=== PATIENT | male | born 1935 | race Caucasian/White ===

== ENCOUNTER 2017-02-18 06:15 | Observation (INO) | payer OTHER ==
[~2017-02-18] VITALS: Ht 175.3 cm; Wt 86.2 kg
[~2017-02-18 06:15] MED LIST: ASPEC81 PO; ATEN-173 PO; BIOF500T PO; CETI10TA84 PO; CHOLTAB3 PO; CLOP1TAB15 PO; COEN100C28 PO; CRS10 PO; FENO48TA9 PO; FLM4 PO; GUAISYP6 PO; HYDR1TAB2 PO; ISR40 PO; MAGN400T6 PO; MULT-506 PO; NTRGSL/4 UT; PRLSR20 PO; SALI1SPR3; TEMA30CA4 PO; ZNTT/150 PO; [UNRECOGNIZED DRUG - CODE]
[2017-02-18] MEDS ORDERED: ASPIRIN 81 MG CHEW PO STA (06:33)
[2017-02-18 06:41] LABS: BASO % 0.2 %; BASO ABS # 0.02 K/uL (0-0.2); COMPLETE YES; EOS % 3.8 %; HEMATOCRIT 47.4 % (42-52); IG% 0.3 %; LYMPH % 15.5 %; LYMPH ABS # 1.44 K/uL (1.2-3.4); MEAN CELL VOLUME 84.5 fL (80-100); MEAN CORPUSCULAR HEMOGLOBIN 30.3 pg (25-34); MEAN CORPUSCULAR HGB CONC 35.9 g/dl (32-36); MEAN PLATELET VOLUME 11.2 fL (7.4-10.4); MONO % 9.4 %; NEUT % 70.8 %; PLATELET COUNT 174 K/uL (130-400); RED BLOOD COUNT 5.61 M/uL (4.7-6.1)
[2017-02-18] MEDS ORDERED: ASPI81TA28 PO (06:42)
[2017-02-18] MEDS ORDERED: AMLO-110 PO (06:42)
--- NOTE | 2017-02-18 06:42 | EMERGENCY ROOM VISIT NOTE ---
History Report prepared by Ani: Mallory Ortega Under the Supervision of: Dr. Roberto Lawrence M.D. First contact with patient: 06:30 Chief Complaint: CARDIAC ASSESSMENT Stated Complaint: HEART PAIN History of Present Illness The patient is a 81 year old male who presents to the Emergency Room with complaints of intermittent left sided chest pain that began four days ago. He currently rates his discomfort as a 5/10 in severity. The patient states that he has a cardiac history, noting multiple MIs, quadruple bypass, angioplasty, and stents. He states that his pain he has been experiencing is similar to the pain he has experienced with angina. The patient states that the pain is nonexertional, noting that he does not get the pain as much when he is up and walking around. He states that he was taken off of his Plavix two years ago, noting that he only takes aspirin in the morning. The patient denies being on any blood pressure medications. He states that he is on Atenolol for his heart rate and denies any history of atrial fibrillation. The patient denies taking any of his medications prior to arrival this morning and denies taking any nitroglycerin today. He denies the pain starting after eating. The patient states that his pain can last up to thirty minutes. He denies the pain radiating into his back, arm, shoulder, or jaw. The patient denies any fever, chills, diaphoresis, cough, congestion, shortness of breath, nausea, or vomiting. Source of History: patient Onset: four days ago Position: chest (left) Symptom Intensity: 5/10 Timing: intermittent Associated Symptoms: No fevers, No chills, No diaphoresis, No cough, No SOB , No nausea, No vomiting, No back pain Review of Systems See HPI for pertinent positives and negatives. A total of ten systems were reviewed and were otherwise negative. Past Medical & Surgical Medical Problems: (1) Benign hypertension (2) Coronary artery disease (3) Kidney disease (4) Myocardial infarction (5) Renal artery stenosis Surgical Problems: (1) S/P quadruple vessel bypass Family History Gallbladder disease Heart disease Hypertension Kidney disease Kidney stones Social History Smoking Status: Former Smoker Alcohol Use: none Drug Use: none Marital Status: Housing Status: lives with family Occupation Status: retired Current/Historical Medications Scheduled Aspirin (Aspirin Ec), 81 MG PO DAILY Atenolol (Tenormin), 50 MG PO Q12 Atorvastatin (Lipitor), 80 MG PO DAILY B-Complex W/Biotin & Folic Aci (Super B-Complex), 1 CAP PO DAILY Magnesium (Magnesium 250 mg), 250 MG PO DAILY Pantoprazole Sodium (Protonix), 40 MG PO DAILY Potassium (Potassium), 99 MG PO BID Ranitidine (Zantac), 150 MG PO Q12 Scheduled PRN Hydrocodone/Acetaminophen 5MG/325MG ([place] 5MG/325MG), 1 TABLET PO Q8 PRN for Pain Nitroglycerin (Nitrostat), 0.4 MG UT UD PRN for Chest Pain Zolpidem Tartrate (Zolpidem Tartrate), 10 MG PO HS PRN for Sleep Allergies Coded Allergies: Prazosin (Verified Adverse Reaction, Intermediate, HYPOTENSION, 11/23/12) Physical Exam Vital Signs Date Time Temp Pulse Resp B/P (MAP) Pulse Ox O2 Delivery O2 Flow Rate FiO2 02/18/17 07:00 51 18 177/95 96 Room Air 02/18/17 06:39 96 Room Air 02/18/17 06:35 96 Room Air 02/18/17 06:31 62 02/18/17 06:20 36.5 53 20 206/97 97 Room Air Physical Exam GENERAL: Awake, alert, well-appearing, in no distress HENT: Normocephalic, atraumatic. Mildly dry mucous membranes. EYES: Normal conjunctiva. Sclera non-icteric. NECK: Supple. No nuchal rigidity. FROM. No JVD. RESPIRATORY: Clear to auscultation. CARDIAC: Regular rate, normal rhythm. Extremities warm and well perfused. Pulses equal. ABDOMEN: Soft, non-distended. No tenderness to palpation. No rebound or guarding. No masses. RECTAL: Deferred. MUSCULOSKELETAL: Chest examination reveals no tenderness. The back is symmetrical on inspection without obvious abnormality. There is no CVA tenderness to palpation. No joint edema. LOWER EXTREMITIES: Calves are equal size bilaterally and non-tender. No edema. No discoloration. NEURO: Normal sensorium. No sensory or motor deficits noted. SKIN: No rash or jaundice noted. Medical Decision & Procedures ER Provider Diagnostic Interpretation: X-ray: Per my interpretation, radiologist review. CHEST ONE VIEW PORTABLE CLINICAL HISTORY: CHEST PAIN pain COMPARISON STUDY: 02/20/2013 FINDINGS: Prior median sternotomy. Moderate stable cardiomegaly. Lungs are clear. Diaphragms smooth. IMPRESSION: Moderate cardiac enlargement. No acute process. The above report was generated using voice recognition software. It may contain grammatical, syntax or spelling errors. Electronically signed by: Trevor Romero M.D. 02/18/2017 6:58 AM Dictated Date/Time: 02/18/2017 6:56 AM Laboratory Results 02/18/17 06:30 Red Blood Count 5.61, Mean Corpuscular Volume 84.5, Mean Corpuscular Hemoglobin 30.3, Mean Corpuscular Hemoglobin Concent 35.9, Mean Platelet Volume 11.2, Neutrophils (%) (Auto) 70.8, Lymphocytes (%) (Auto) 15.5, Monocytes (%) (Auto) 9.4, Eosinophils (%) (Auto) 3.8, Basophils (%) (Auto) 0.2, Neutrophils # (Auto) 6.59, Lymphocytes # (Auto) 1.44, Monocytes # (Auto) 0.87, Eosinophils # (Auto) 0.35, Basophils # (Auto) 0.02 02/18/17 06:30 Test 02/18/17 06:30 White Blood Count 9.30 K/uL (4.8-10.8) Red Blood Count 5.61 M/uL (4.7-6.1) Hemoglobin 17.0 g/dL (14.0-18.0) Hematocrit 47.4 % (42-52) Mean Corpuscular Volume 84.5 fL (80-100) Mean Corpuscular Hemoglobin 30.3 pg (25-34) Mean Corpuscular Hemoglobin Concent 35.9 g/dl (32-36) Platelet Count 174 K/uL (130-400) Mean Platelet Volume 11.2 fL (7.4-10.4) Neutrophils (%) (Auto) 70.8 % Lymphocytes (%) (Auto) 15.5 % Monocytes (%) (Auto) 9.4 % Eosinophils (%) (Auto) 3.8 % Basophils (%) (Auto) 0.2 % Neutrophils # (Auto) 6.59 K/uL (1.4-6.5) Lymphocytes # (Auto) 1.44 K/uL (1.2-3.4) Monocytes # (Auto) 0.87 K/uL (0.11-0.59) Eosinophils # (Auto) 0.35 K/uL (0-0.5) Basophils # (Auto) 0.02 K/uL (0-0.2) RDW Standard Deviation 39.9 fL (36.4-46.3) RDW Coefficient of Variation 13.0 % (11.5-14.5) Immature Granulocyte % (Auto) 0.3 % Immature Granulocyte # (Auto) 0.03 K/uL (0.00-0.02) Anion Gap 7.0 mmol/L (3-11) Est Creatinine Clear Calc Drug Dose 51.4 ml/min Estimated GFR () 61.9 Estimated GFR (Non- 53.4 BUN/Creatinine Ratio 20.0 (10-20) Calcium Level 8.9 mg/dl (8.5-10.1) Total Bilirubin 1.4 mg/dl (0.2-1) Direct Bilirubin 0.2 mg/dl (0-0.2) Aspartate Amino Transf (AST/SGOT) 16 U/L (15-37) Alanine Aminotransferase (ALT/SGPT) 22 U/L (12-78) Alkaline Phosphatase 118 U/L (45-117) Troponin I < 0.015 ng/ml (0-0.045) Total Protein 7.9 gm/dl (6.4-8.2) Albumin 4.0 gm/dl (3.4-5.0) Lipase 353 U/L (73-393) Laboratory results reviewed by me Medications Administered Medications (Trade) Dose Ordered Sig/[place] Route Start Time Stop Time Status Last Admin Dose Admin Aspirin (Aspirin Chew) 324 mg NOW STAT PO 02/18/17 06:33 02/18/17 06:35 DC 02/18/17 06:42 324 MG ECG Indication: chest pain Rate (beats per minute): 61 Rhythm: sinus rhythm Findings: 1st degree AV block, T-wave inversion (V6), no acute ischemic change Comparison ECG Date: 11/24/12 Change: no significant change ED Course 0632: The patient was evaluated in room B12B. A complete history and physical exam was performed. 0633: Ordered Aspirin 324 mg PO. 0740: I reevaluated the patient and he is resting comfortably. I discussed all the exam findings with him and I discussed the treatment plan. He verbalized complete understanding and agreement. He will be evaluated for further treatment. 0745: I discussed the patients case with SHAILESH Flores. He is going to evaluate the patient for further treatment. Medical Decision I reviewed the patient's past medical history, medications, and the nursing notes as described above. The patient's presentation and history were concerning for ACS, unstable angina , pneumonia, bronchitis, costochondritis, gastritis, dissection. The patient is a 81-year-old gentleman with a past medical history of extensive CAD with stenting and bypass presents emergency Department with intermittent chest pain over the past several days at rest with last episode this morning when he woke from sleep per history of present illness. Patient denies any shortness of breath nausea sweating with these episodes however they feel like his prior UT. On arrival the patient is asymptomatic otherwise well-appearing, in no acute distress, afebrile hypertensive but otherwise stable vital signs. EKG unremarkable with a T-wave inversion in V6 that was present on prior. Troponin negative. WBC within normal limits. Chest x-ray negative. This patient's extensive history with his symptoms the patient has a heart score of 6 , moderate risk, and thus will be admitted for further evaluation and likely provocative testing. Medication Reconcilliation Current Medication List: was personally reviewed by me Blood Pressure Screening Patient's blood pressure: Elevated blood pressure Blood pressure disposition: Referred to PCP (rever to hospitalist) Consults Time Called: 0740 Consulting Physician: SHAILESH Flores Returned Call: 0724 I discussed the patients case with SHAILESH Flores. He is going to evaluate the patient for further treatment. Impression Primary Impression: Substernal chest pain Scribe Attestation The scribe's documentation has been prepared under my direction and personally reviewed by me in its entirety. I confirm that the note above accurately reflects all work, treatment, procedures, and medical decision making performed by me. Departure Information Dispostion Being Evaluated By Hospitalist Referrals Bi Meier M.D. (PCP)
[2017-02-18] MEDS ORDERED: ATOR-26 PO (06:43)
[2017-02-18] MEDS ORDERED: PANT40TA PO (06:43)
[2017-02-18] MEDS ORDERED: CETI10TA84 PO (06:45)
[2017-02-18] MEDS ORDERED: B-COTAB18 PO (06:45)
[2017-02-18] MEDS ORDERED: ZNTT/150 PO (06:45)
[2017-02-18] MEDS ORDERED: POTA99TA PO (06:46)
--- NOTE | 2017-02-18 06:59 | DIAGNOSTIC IMAGING REPORT ---
CHEST ONE VIEW PORTABLE CLINICAL HISTORY: CHEST PAIN pain COMPARISON STUDY: 02/20/2013 FINDINGS: Prior median sternotomy. Moderate stable cardiomegaly. Lungs are clear. Diaphragms smooth. IMPRESSION: Moderate cardiac enlargement. No acute process. The above report was generated using voice recognition software. It may contain grammatical, syntax or spelling errors. Electronically signed by: Trevor Romero M.D. 02/18/2017 6:58 AM Dictated Date/Time: 02/18/2017 6:56 AM
[2017-02-18] MEDS ORDERED: ZOLP10TA6 PO (07:02)
[2017-02-18] MEDS ORDERED: B-CO1CAP5 PO (07:02)
[2017-02-18 07:04] LABS: ALT/SGPT 22 U/L (12-78); AST/SGOT 16 U/L (15-37); BLOOD UREA NITROGEN 25 mg/dl (7-18); CALCIUM 8.9 mg/dl (8.5-10.1); CARBON DIOXIDE 27 mmol/L (21-32); CHLORIDE 107 mmol/L (98-107); CREATININE 1.27 mg/dl (0.60-1.40); GLUCOSE 111 mg/dl (70-99); SODIUM 141 mmol/L (136-145)
[2017-02-18] MEDS ORDERED: HYDR-5688 PO (07:04)
[2017-02-18] MEDS ORDERED: MAGN250T3 PO (07:04)
[2017-02-18 07:09] LABS: ALKALINE PHOSPHATASE 118 U/L (45-117)
--- NOTE | 2017-02-18 08:20 | History and Physical ---
History & Physical Date & Time of Service: Feb 18, 2017 at 08:16 Chief Complaint: Heart Pain Primary Care Physician: Jeff Rodas M.D. History of Present Illness Mr. Zayas has had intermittent left chest pain for 4 days. It does not get better or worse with exertion however he does feel somewhat better when sitting or standing up rather than laying back. The pain is not reproducible with movement or pressure. No radiation, nausea, diaphoresis, or sob. There was some relief with nitro which he took only a couple of times over the past four days. He has had a mild cough but no sputum and otherwise has felt well, no sick contacts, no recent travel. He has a past medical history of CAD, PA, CABG x 4, AAA, renal artery stenosis, CKD III, renal artery bypass, HLD, HTN, multiple orthopedic surgeries, cholecystectomy. Last cardiac catheterization was about 10 years ago, last stress test about five years ago. Past Medical/Surgical History Medical Problems: (1) Benign hypertension Status: Chronic (2) Coronary artery disease Status: Chronic (3) Kidney disease Status: Chronic (4) Myocardial infarction Status: Resolved (5) Renal artery stenosis Status: Chronic Surgical Problems: (1) S/P quadruple vessel bypass Status: Resolved Family History Gallbladder disease Heart disease Hypertension Kidney disease Kidney stones Social History Smoking Status: Former Smoker (remote, quit 30 years ago) Drug Use: none Marital Status: Housing status: lives with family Occupational Status: retired Immunizations History of Influenza Vaccine: N/A History of Tetanus Vaccine?: Unknown History of Pneumococcal: Yes History of Hepatitis B Vaccine: Unknown Multi-Drug Resistant Organisms History of MDRO: No Allergies Coded Allergies: Prazosin (Verified Adverse Reaction, Intermediate, HYPOTENSION, 11/23/12) Home Medications Scheduled Aspirin (Aspirin Ec), 81 MG PO DAILY Atenolol (Tenormin), 50 MG PO Q12 Atorvastatin (Lipitor), 80 MG PO DAILY B-Complex W/Biotin & Folic Aci (Super B-Complex), 1 CAP PO DAILY Lisinopril (Lisinopril), 5 MG PO DAILY Magnesium (Magnesium 250 mg), 250 MG PO DAILY Pantoprazole Sodium (Protonix), 40 MG PO DAILY Potassium (Potassium), 99 MG PO BID Ranitidine (Zantac), 150 MG PO Q12 Scheduled PRN Hydrocodone/Acetaminophen 5MG/325MG ([place] 5MG/325MG), 1 TABLET PO Q8 PRN for Pain Nitroglycerin (Nitrostat), 0.4 MG UT UD PRN for Chest Pain Zolpidem Tartrate (Zolpidem Tartrate), 10 MG PO HS PRN for Sleep Review of Systems Constitutional: No fever, No chills Respiratory: + cough, No sputum, No shortness of breath Cardiovascular: No chest pain (chest pain resolved), No palpitations Abdomen: No pain, No nausea, No vomiting Musculoskeletal: No joint pain Physical Exam Vital Signs Date Time Temp Pulse Resp B/P (MAP) Pulse Ox O2 Delivery O2 Flow Rate FiO2 02/18/17 07:00 51 18 177/95 96 Room Air 02/18/17 06:39 96 Room Air 02/18/17 06:35 96 Room Air 02/18/17 06:31 62 02/18/17 06:20 36.5 53 20 206/97 97 Room Air General Appearance: WD/WN, no apparent distress Respiratory/Chest: lungs clear, normal breath sounds, no respiratory distress, no accessory muscle use, + pertinent finding (mild chest tenderness left chest) Cardiovascular: regular rate, rhythm, no edema, no gallop, no murmur Abdomen/GI: normal bowel sounds, non tender, soft Back: normal inspection Extremities/Musculoskelatal: no pedal edema Neurologic/Psych: alert, normal mood/affect, oriented x 3 Skin: normal color, warm/dry Diagnostics Laboratory Results Results Past 24 Hours Test 02/18/17 06:30 Range/Units White Blood Count 9.30 4.8-10.8 K/uL Red Blood Count 5.61 4.7-6.1 M/uL Hemoglobin 17.0 14.0-18.0 g/dL Hematocrit 47.4 42-52 % Mean Corpuscular Volume 84.5 80-100 fL Mean Corpuscular Hemoglobin 30.3 25-34 pg Mean Corpuscular Hemoglobin Concent 35.9 32-36 g/dl Platelet Count 174 130-400 K/uL Mean Platelet Volume 11.2 7.4-10.4 fL Neutrophils (%) (Auto) 70.8 % Lymphocytes (%) (Auto) 15.5 % Monocytes (%) (Auto) 9.4 % Eosinophils (%) (Auto) 3.8 % Basophils (%) (Auto) 0.2 % Neutrophils # (Auto) 6.59 1.4-6.5 K/uL Lymphocytes # (Auto) 1.44 1.2-3.4 K/uL Monocytes # (Auto) 0.87 0.11-0.59 K/uL Eosinophils # (Auto) 0.35 0-0.5 K/uL Basophils # (Auto) 0.02 0-0.2 K/uL RDW Standard Deviation 39.9 36.4-46.3 fL RDW Coefficient of Variation 13.0 11.5-14.5 % Immature Granulocyte % (Auto) 0.3 % Immature Granulocyte # (Auto) 0.03 0.00-0.02 K/uL Sodium Level 141 136-145 mmol/L Potassium Level 4.0 3.5-5.1 mmol/L Chloride Level 107 98-107 mmol/L Carbon Dioxide Level 27 21-32 mmol/L Anion Gap 7.0 3-11 mmol/L Blood Urea Nitrogen 25 7-18 mg/dl Creatinine 1.27 0.60-1.40 mg/dl Est Creatinine Clear Calc Drug Dose 51.4 ml/min Estimated GFR () 61.9 Estimated GFR (Non- 53.4 BUN/Creatinine Ratio 20.0 10-20 Random Glucose 111 70-99 mg/dl Calcium Level 8.9 8.5-10.1 mg/dl Total Bilirubin 1.4 0.2-1 mg/dl Direct Bilirubin 0.2 0-0.2 mg/dl Aspartate Amino Transf (AST/SGOT) 16 15-37 U/L Alanine Aminotransferase (ALT/SGPT) 22 12-78 U/L Alkaline Phosphatase 118 45-117 U/L Troponin I < 0.015 0-0.045 ng/ml Total Protein 7.9 6.4-8.2 gm/dl Albumin 4.0 3.4-5.0 gm/dl Lipase 353 73-393 U/L CXR normal EKG T wave abnormality, consider lateral ischemia Abnormal ECG When compared with ECG of 24-NOV-2012 06:22, No significant change was found Impression Assessment and Plan Mr. Zayas is a 81 year old man here for atypical chest pain. He has had intermittent left chest pain for 4 days. It does not get better or worse with exertion however he does feel somewhat better when sitting or standing up rather than laying back. The pain is not reproducible with movement or pressure. No radiation, nausea, diaphoresis, or sob. There was some relief with nitro which he took only a couple of times over the past four days. He has had a mild cough but no sputum and otherwise has felt well, no sick contacts, no recent travel. He has a past medical history of CAD, PA, CABG x 4, AAA, renal artery stenosis, CKD III, renal artery bypass, HLD, HTN, GERD, multiple orthopedic surgeries, cholecystectomy. Last cardiac catheterization was about 10 years ago, last stress test about five years ago. Atypical chest pain - admit for observation to telemetry - serial cardiac enzymes, EKG with chest pain and in the morning - NPO for dobutamine stress Echo CAD - continue ASA - Continue atenolol HTN - continue atenolol - prn IV hydralazine HLD - continue atorvastatin CKDII - avoid nephrotoxic meds when possible GERD - continue ranitidine Resuscitation status - no intubation DVT prophylaxis - heparin ALTERATION TAILOR APPRENTICE Physician Supervision Note: I interviewed and examined the patient. Discussed with Irena Mercado NP and agree with findings and plan as documented in the note. Any exceptions or clarifications are listed here: None Patient presents with sharp chest pain is some exertional dyspnea it is not dull does not radiate to his neck no nausea vomiting his initial troponins unremarkable and EKG was also with only chronic changes he follows Dr. Rodas Vital signs are stable cardiac exam is regular lungs are clear no wheezes or crackles legs without edema peripheral pulses are intact Patient be observed serial troponins be undertaken to be having stress testing for cardio vascular risk stratification if negative the patient will be discharged home with follow-up with Dr. Rodas Documented By: Dylan Pastrana Level of Care Telemetry Advanced Directives Existing Advance Directive: No Existing Power of Sales Service Coordinator: No Existing Health Care Proxy: No Resuscitation Status FULL NO MECH VENTILATION VTE Prophylaxis VTE Risk Assessment Done? Y/N: Yes Given or contraindicated: Unfractionated heparin SQ Social Service Consult None Apply
[2017-02-18] MEDS ORDERED: ONDANSETRON INJ 2 MG/ML 2 ML VIAL IV PRN (08:45)
[2017-02-18] MEDS ORDERED: MoRPHine SULFATE 2 MG/ML CARP IV PRN (08:45)
[2017-02-18] MEDS ORDERED: ACETAMINOPHEN 325 MG TAB PO PRN (08:45)
[2017-02-18] MEDS ORDERED: INFLUENZA VIRUS QUAD VACCINE 0.5 ML SYR IM. ONE (08:45)
[2017-02-18] MEDS ORDERED: MAGNESIUM HYDROXIDE SUSP 30 ML UDC PO PRN (08:45)
[2017-02-18] MEDS ORDERED: NITROGLYCERIN 0.4 MG SL PER TAB CHARGE SL PRN (08:45)
[2017-02-18] MEDS ORDERED: ALUMINUM/MAGNESIUM/SIMETH (MAALOX MAX) 30 ML UDC PO PRN (08:45)
[2017-02-18] MEDS ORDERED: NON-FORMULARY MEDICATION (Potassium 99 MG) PO SCH (09:00)
[2017-02-18] MEDS ORDERED: NITROGLYCERIN 0.4 MG SL PER TAB CHARGE UT PRN (09:00)
[2017-02-18] MEDS ORDERED: ASPIRIN 81 MG ECTAB PO SCH ×2 (09:00)
[2017-02-18] MEDS ORDERED: HYDROCODONE/ACETAMOPHEN 5/325MG TAB PO PRN (09:00)
[2017-02-18] MEDS ORDERED: ZOLPIDEM TARTRATE 10 MG TAB PO PRN (09:00)
[2017-02-18 09:11] LABS: PROTHROMBIN TIME (PATIENT) 10.8 SECONDS (9.0-12.0)
[2017-02-18] MEDS ORDERED: HydrALAZINE HCL 20 MG/ML VIAL IV. PRN (09:15)
[2017-02-18] MEDS ORDERED: IV FLUIDS COMPLETED PRN (09:30)
[2017-02-18 11:24] VITALS: BP 184/90; PULSE 54; TEMP 36.6; O2SAT 95
[2017-02-18 11:32] VITALS: BP 184/90; PULSE 54; TEMP 36.7; O2SAT 95; Ht 175.3 cm; Wt 86.2 kg
[2017-02-18] MEDS ORDERED: INFLUENZA ADMINISTRATION CHARGE ONE ×3 (12:30→14:45)
[2017-02-18] MEDS ORDERED: PANTOprazole SOD 40 MG TAB PO SCH (13:00)
[2017-02-18] MEDS ORDERED: RANITIDINE HCL 150 MG TAB PO SCH (13:00)
[2017-02-18] MEDS ORDERED: ATORVASTATIN 40 MG TAB PO SCH (13:00)
[2017-02-18 13:38] VITALS: BP 205/91; O2SAT 96
[2017-02-18 14:27] VITALS: BP 165/84; PULSE 55; TEMP 36.9; O2SAT 96
[2017-02-18] MEDS ORDERED: INFLUENZA VACCINE HIGH DOSE 65+ 0.5 ML SYR IM. ONE ×2 (14:45)
[2017-02-18 14:53] LABS: CKMB/CK RATIO 1.4 (0-3.0)
[2017-02-18] MEDS ORDERED: METOPROLOL TARTRATE 1 MG/ML VIAL ONE (14:58)
[2017-02-18] MEDS ORDERED: ATROPINE SULFATE 0.1 MG/ML 5ML SYR ONE (14:58)
[2017-02-18] MEDS ORDERED: DOBUTamine 500MG / 250ML D5W ONE (14:59)
[2017-02-18] MEDS ORDERED: PERFLUTREN LIPID MICROSPHERE (DEFINITY) IV ONE (15:48)
[2017-02-18 16:00] VITALS: O2SAT 96
[2017-02-18] MEDS ORDERED: LSN5 PO (16:17)
--- NOTE | 2017-02-18 16:27 | Discharge Instructions ---
Discharge Instructions Date of Service Feb 18, 2017. Admission Reason for Admission: Atypical Chest Pain Discharge Discharge Diagnosis / Problem: atypical chest pain, htn Discharge Goals Goal(s): Decrease discomfort, Improve disease control Activity Recommendations Activity Limitations: resume your previous activity . Instructions / Follow-Up Instructions / Follow-Up Please see cardiology ThursdayFebruary 25 at 2:00 You have a new prescription for lisinopril which is an LENARD inhibitor. Please check your blood pressure daily after sitting quietly for 15 minutes and record the reading in a log for your physician. This is a low dose of this medication. Hopefully if you titrate up slowly you can avoid the hypotension issues you have had in the past. Current Hospital Diet Patient's current hospital diet: Discharge Diet Recommended Diet: AHA Diet (Heart Healthy) Procedures Procedures Performed: Dobutamine stress echo Pending Studies Studies pending at discharge: no Medical Emergencies . Who to Call and When: Medical Emergencies: If at any time you feel your situation is an emergency, please call 911 immediately. . Non-Emergent Contact Non-Emergency issues call your: Primary Care Provider, Screen Vent Binder Call Non-Emergent contact if: your pain is unusual for you, you have any medication questions . Past History Medical & Surgical History: (1) Atypical chest pain (2) Essential (primary) hypertension . "Provider Documentation" section prepared by Irena Mercado. . VTE Core Measure Inpt VTE Proph given/why not?: Unfractionated heparin SQ
[2017-02-18 16:48] VITALS: BP 165/84; PULSE 55; TEMP 36.9; O2SAT 96
--- NOTE | 2017-02-18 16:49 | Discharge Summary ---
Discharge Summary Date of Service Feb 18, 2017. (Irena Mercado CRNP) Discharge Summary Admission Date: Feb 18, 2017 at 08:46 Discharge Date: Feb 18, 2017 Principal Diagnosis: atypical chest pain Problems/Secondary Diagnoses: CAD, SD, CABG x 4, AAA, renal artery stenosis, CKD III, renal artery bypass, HLD , HTN, GERD, multiple orthopedic surgeries, cholecystectomy. Immunizations: Have You Had Influenza Vaccine: N/A History of Tetanus Vaccine?: Unknown History of Pneumococcal: Yes History of Hepatitis B Vaccine: Unknown Procedures: Dobutamine stress test CXR IMPRESSION: Moderate cardiac enlargement. No acute process. Consultations: Dr. Rodas (Irena Mercado CRNP) Medication Reconciliation New Medications: Lisinopril (Lisinopril) 5 Mg Tab 5 MG PO DAILY for 30 Days, #30 DOSE Continued Medications: Aspirin (Aspirin Ec) 81 Mg Tab 81 MG PO DAILY Atenolol (Tenormin) 25 Mg Tab 50 MG PO Q12 Atorvastatin (Lipitor) 80 Mg Tab 80 MG PO DAILY, TAB B-Complex W/Biotin & Folic Aci (Super B-Complex) 1 Cap Cap 1 CAP PO DAILY Hydrocodone/Acetaminophen 5MG/325MG ([place] 5MG/325MG) Tab 1 TABLET PO Q8 PRN for Pain, TAB PRN PAIN Magnesium (Magnesium 250 mg) 1 Tab Tab 250 MG PO DAILY Nitroglycerin (Nitrostat) 0.4 Mg Tab 0.4 MG UT UD PRN for Chest Pain Pantoprazole Sodium (Protonix) 40 Mg Tab 40 MG PO DAILY, TAB Potassium (Potassium) 99 Mg Tab 99 MG PO BID Ranitidine (Zantac) 150 Mg Tab 150 MG PO Q12, TAB Zolpidem Tartrate (Zolpidem Tartrate) 10 Mg Tab 10 MG PO HS PRN for Sleep for 30 Days, #30 TAB Discharge Exam Review of Systems: Cardiovascular: No chest pain, No palpitations Abdomen: No pain, No nausea, No vomiting, No diarrhea Genitourinary - Female: No dysuria (Irena Mercado CRNP) Hospital Course Mr. Zayas is a 81 year old man here for atypical chest pain. He has had intermittent left chest pain for 4 days. It does not get better or worse with exertion however he does feel somewhat better when sitting or standing up rather than laying back. The pain is not reproducible with movement or pressure. No radiation, nausea, diaphoresis, or sob. There was some relief with nitro which he took only a couple of times over the past four days. He has had a mild cough but no sputum and otherwise has felt well, no sick contacts, no recent travel. He has a past medical history of CAD, SD, CABG x 4, AAA, renal artery stenosis, CKD III, renal artery bypass, HLD, HTN, GERD, multiple orthopedic surgeries, cholecystectomy. Last cardiac catheterization was about 10 years ago, last stress test about five years ago. Atypical chest pain - admit for observation to telemetry - serial cardiac enzymes, EKG with chest pain and in the morning - Trops negative x2 - dobutamine stress Echo - per Dr. Rodas patient's stress test was normal CAD - continue ASA - Continue atenolol HTN - continue atenolol - prn IV hydralazine - start lisinopril 5 mg daily. Patient will probably need to titrate up slowly given history of orthostatic hypotension with antihypertensives. HLD - continue atorvastatin CKDII - avoid nephrotoxic meds when possible GERD - continue ranitidine Resuscitation status - no intubation DVT prophylaxis - heparin Total Time Spent: Less than 30 minutes This includes examination of the patient, discharge planning, medication reconciliation, and communication with other providers. (Irena Mercado CRNP) PROFESSOR OF MEDICINE Physician Supervision Note: I interviewed and examined the patient. Discussed with Irena Mercado PROFESSOR OF MEDICINE and agree with findings and plan as documented in the note. Any exceptions or clarifications are listed here: None Patient brought in with sharp atypical chest pain and some shortness of breath nuclear stress test was unremarkable the patient will return to home with outpatient follow-up with cardiology, the patient was seen and examined on intake and discharge he was relieved that his pain was not cardiac no medication changes were recommended exception of his attending an LENARD inhibitor of lisinopril for blood pressure control as the patient's blood pressure was noted to be high by his attending hand stripper. His physical exam continues to show regular heart rate clear lungs Patient voiced understanding of the medication changes Documented By: Dylan Pastrana (Dylan Pastrana M.D.) Discharge Instructions Please refer to the electronic Patient Visit Report (Discharge Instructions) for additional information. (Irena Mercado CRNP) Follow-Up Cardiology February 25 (Irena Mercado CRNP) Additional Copies To Jeff Rodas M.D.
--- NOTE | 2017-02-18 17:05 | DOBUTAMINE ECHO ---
*NOTICE TO RECEIVING [employer] This information is strictly Confidential and protected under [place] law. [place] law prohibits you from making any further disclosure of this information unless further disclosure is expressly permitted by the written consent of the person to whom it pertains or is authorized by law. A general authorization for the release of medical or other information is not sufficient for this purpose. Hospital accepts no responsibility if the information is made available to any other person, INCLUDING THE PATIENT. Interpretation Summary * Name: JULISSA ORELLANA Study Date: 02/18/2017 02:34 PM BP: 158/74 mmHg * Patient Location: [facility]\S\N289\S\2 HR: 59 * : 1935 (M/d/yyy) Gender: Male Height: 69 in * Age: 81 yrs Ethnicity: [place] Weight: 190 lb * Ordering Physician: Irena Mercado * Referring Physician: Jeff Rodas * Performed By: Chela Restrepo RDCS * * Reason For Study: CHEST PAIN * BSA: 2.0 m2 * Normal overall resting left ventricular systolic function. Localized apical lateral akinesis. Lateral hypokinesis. * Pharmacologic stress echocardiogram to 91% maximum predicted heart rate negative for chest pain. Normal ECG response. Normal echocardiographic response. No echocardiographic evidence of dobutamine stress-induced myocardial ischemia. * Moderate left atrial dilatation. * Moderate concentric left ventricular hypertrophy. * No significant valvular abnormalities noted. * -- Conclusions -- * Aortic valve sclerosis moderate, without significant aortic valvular stenosis. Procedure Details * DOBUTAMINE ECHO, CPT#[id number] * ECHO DOPPLER, CPT #[id number] * ECHO COLOR FLOW, CPT #[id number] * A contrast injection of Definity was performed to improve assessment of LV function. * Contrast was injected into an intravenous site in the left arm. * One vial of Definity ultrasound contrast was diluted in normal saline to a total volume of 10 ml. A total of '5' ml of solution was administered during imaging. * Lot # [id number] of Definity utilized for procedure. * Expiration date 02/11. * The attending nurse who injected the contrast agent was DOUG CAMARILLO RN. Left Ventricle * The left ventricle is normal in size. * There is moderate concentric left ventricular hypertrophy. * Ejection Fraction = 60-65%. * Left ventricular systolic function is normal. * The left ventricular ejection fraction increases normally with stress. The left ventricular end-systolic cavity size reduces post-stress (normal response). The left ventricular wall motion with stress is normal. * Anterolateral hypokinesis and apical lateral akinesis at rest. Following pharmacologic stress improvement in LV wall motion all segments except for the apical lateral segment which remained akinetic. This was a localized segment of the left ventricle. Right Ventricle * The right ventricle is normal in size and function. Atria * The left atrium is moderately dilated. * Right atrial size is normal. Mitral Valve * The mitral valve is normal. * There is no mitral valve stenosis. * There is trace mitral regurgitation. Tricuspid Valve * The tricuspid valve is not well visualized, but is grossly normal. * There is no tricuspid stenosis. * Significant tricuspid regurgitation is absent. Aortic Valve * The aortic valve is trileaflet. * Aortic valve sclerosis moderate, without significant aortic valvular stenosis. * No aortic regurgitation is present. Pulmonic Valve * The pulmonic valve is not well seen, but is grossly normal. * Pulmonic stenosis is absent. * There is no pulmonic valvular regurgitation. Great Vessels * The aortic root is normal size. Pericardium * There is no pericardial effusion. Stress Parameters * The baseline ECG displays normal sinus rhythm. * Non specific T wave changes in the inferolateral leads ( flat to very shallow inverted T waves). * Stress ECG: No ST changes. No arrhythmias. * The T waves became upright in the inferolateral leads. * Arrhythmia induced during stress: occasional PVC's. * The stress portion of this study was personally supervised by the undersigned interpreting physician. * Rest heart rate was '59' BPM. * Rest blood pressure was '158/74' * Maximum heart rate achieved was 129 bpm. * Maximum heart rate was 91 % of maximum age-predicted heart rate. * Maximum blood pressure was '180/57' * Maximum Dobutamine infusion rate was '50' mcg/kg/min. * Dobutamine infusion was terminated due to achieving target heart rate * No complaints of chest pain or upper back discomfort or arm discomfort with pharmacologic stress. He did complain of low back discomfort which he attributes to his chronic lumbar spinal issues. MMode 2D Measurements and Calculations IVSd 1.5 cm IVSs 2.3 cm LVIDd 4.7 cm LVIDs 3.1 cm LVPWd 1.5 cm LVPWs 2.4 cm IVS/LVPW 1.0 FS 33.2 % EDV(Teich) 100.9 ml ESV(Teich) 38.4 ml EF(Teich) 61.9 % EDV(cubed) 101.9 ml ESV(cubed) 30.3 ml EF(cubed) 70.3 % % IVS thick 50.5 % % LVPW thick 59.0 % LV mass(C)d 291.0 grams LV mass(C)dI 144.0 grams/m\S\2 LV mass(C)s 363.6 grams LV mass(C)sI 179.9 grams/m\S\2 CO(Teich) 3.8 l/min CI(Teich) 1.9 l/min/m\S\2 SV(Teich) 62.4 ml SI(Teich) 30.9 ml/m\S\2 CO(cubed) 4.4 l/min CI(cubed) 2.2 l/min/m\S\2 SV(cubed) 71.6 ml SI(cubed) 35.4 ml/m\S\2 Ao root diam 3.4 cm Ao root area 8.9 cm\S\2 ACS 1.4 cm LA dimension 4.8 cm asc Aorta Diam 2.9 cm LA/Ao 1.4 LVOT diam 2.1 cm LVOT area 3.4 cm\S\2 LVAd ap4 31.4 cm\S\2 LVLd ap4 8.0 cm EDV(MOD-sp4) 102.0 ml LVAs ap4 16.9 cm\S\2 LVLs ap4 6.5 cm ESV(MOD-sp4) 36.3 ml EF(MOD-sp4) 64.4 % LVAd ap2 35.6 cm\S\2 LVLd ap2 8.8 cm EDV(MOD-sp2) 120.0 ml LVAs ap2 18.9 cm\S\2 LVLs ap2 6.6 cm ESV(MOD-sp2) 45.3 ml EF(MOD-sp2) 62.3 % CO(MOD-sp4) 4.0 l/min CI(MOD-sp4) 2.0 l/min/m\S\2 SV(MOD-sp4) 65.7 ml SI(MOD-sp4) 32.5 ml/m\S\2 CO(MOD-sp2) 4.6 l/min CI(MOD-sp2) 2.3 l/min/m\S\2 SV(MOD-sp2) 74.7 ml SI(MOD-sp2) 37.0 ml/m\S\2 Doppler Measurements and Calculations MV E max ana luisa 121.4 cm/sec MV dec time 0.19 sec Ao V2 max 124.1 cm/sec Ao max PG 6.2 mmHg Ao max PG (full) 3.4 mmHg ANTWON(V,A) 2.3 cm\S\2 ANTWON(V,D) 2.3 cm\S\2 LV V1 max PG 2.8 mmHg LV V1 max 83.4 cm/sec MR max ana luisa 407.9 cm/sec MR max PG 66.7 mmHg PA V2 max 79.5 cm/sec PA max PG 2.5 mmHg
[2017-02-18] MEDS ORDERED: HEPARIN SOD 5000 UNIT/0.5 ML CARP SQ SCH (21:00)
[2017-02-19] MEDS ORDERED: MAGNESIUM OXIDE 400 MG TAB PO SCH (09:00)
[2017-02-19] MEDS ORDERED: VITAMIN B COMPLEX TAB PO SCH (09:00)
== END 2017-02-18 17:17 | disposition home or self-care (01) ==
LOC: C.EDB 06:16 → C.MED 08:46 → ENRESERV 10:48
PROVIDERS: ADMIT Internal Medicine; ATTEND Internal Medicine
DX: R07.89 Other chest pain (principal); I25.2 Old myocardial infarction; Z95.5 Presence of coronary angioplasty implant and graft; Z79.82 Long term (current) use of aspirin; I25.10 Atherosclerotic heart disease of native coronary artery without angina pectoris; N18.2 Chronic kidney disease, stage 2 (mild); Z82.49 Family history of ischemic heart disease and other diseases of the circulatory system; Z84.1 Family history of disorders of kidney and ureter; Z87.891 Personal history of nicotine dependence; I51.7 Cardiomegaly; I12.9 Hypertensive chronic kidney disease with stage 1 through stage 4 chronic kidney disease, or unspecified chronic kidney disease; Z90.49 Acquired absence of other specified parts of digestive tract; K21.9 Gastro-esophageal reflux disease without esophagitis

== ENCOUNTER 2017-03-20 14:51 | Emergency (ER) | payer OTHER ==
[~2017-03-20] VITALS: Ht 175.3 cm; Wt 86.7 kg
[~2017-03-20 14:51] MED LIST changes: -ASPEC81 PO; +ASPI81TA28 PO; +ATOR-26 PO; +B-CO1CAP5 PO; -BIOF500T PO; -CETI10TA84 PO; -CHOLTAB3 PO; -CLOP1TAB15 PO; -COEN100C28 PO; -CRS10 PO; -FENO48TA9 PO; -FLM4 PO; -GUAISYP6 PO; +HYDR-5688 PO; -HYDR1TAB2 PO; -ISR40 PO; +LSN5 PO; +MAGN250T3 PO; -MAGN400T6 PO; -MULT-506 PO; +PANT40TA PO; +POTA99TA PO; -PRLSR20 PO; -SALI1SPR3; -TEMA30CA4 PO; +ZOLP10TA6 PO; -[UNRECOGNIZED DRUG - CODE]
[2017-03-20 14:53] VITALS: TEMP 36.7; Ht 175.3 cm; Wt 86.7 kg
[2017-03-20] MEDS ORDERED: LACTATED RINGER'S 1000ML 1,000 ML IV STA (16:06)
--- NOTE | 2017-03-20 16:22 | EMERGENCY ROOM VISIT NOTE ---
History Report prepared by Ani: Gloria Malcolm Under the Supervision of: Dr. Roberto Lawrence M.D. First contact with patient: 16:03 Chief Complaint: ABDOMINAL PAIN Stated Complaint: STOMACH PAIN Nursing Triage Summary: abdominal pain that started thursday night. denies n/v/d. History of Present Illness The patient is a 82 year old male who presents to the Emergency Room with complaints of constant lower abdominal pain beginning 2 days ago. The patient states that one week ago he was seen here and evaluated for chest pain. He reports that he was having upper abdominal pain and chest pain but for the last 2 days he has been having only lower abdominal pain and lower back pain. He notes that laying down worsens his pain significantly and it is slightly relieved after about 30 minutes of standing. The patient states that he had a bowel movement today that made his pain slightly better. He complains of a slight cough. He denies any nausea, vomiting, diarrhea, constipation, congestion , fever, chills, chest pain, and urinary symptoms. The patient reports a history of heart attacks, stent, and GERD. He notes that he gets an angiogram yearly for a previous history of AAA. He rates his pain as a 2/10 in severity currently but an 8/10 when it is peaking. Source of History: patient Onset: 2 days ago Position: abdomen (lower) Symptom Intensity: 2-8/10 Timing: constant Associated Symptoms: + cough, + back pain, No fevers, No chills, No chest pain, No nausea, No vomiting, No diarrhea, No urinary symptoms Note: He denies any constipation and congestion. Review of Systems See HPI for pertinent positives and negatives. A total of ten systems were reviewed and were otherwise negative. Past Medical & Surgical Medical Problems: (1) Atypical chest pain (2) Benign hypertension (3) Coronary artery disease (4) Essential (primary) hypertension (5) Kidney disease (6) Myocardial infarction (7) Renal artery stenosis Surgical Problems: (1) S/P quadruple vessel bypass Family History Gallbladder disease Heart disease Hypertension Kidney disease Kidney stones Social History Smoking Status: Never Smoker Alcohol Use: none Drug Use: none Marital Status: Housing Status: lives with family Occupation Status: retired Current/Historical Medications Scheduled Aspirin (Aspirin Ec), 81 MG PO DAILY Atenolol (Tenormin), 50 MG PO Q12 Atorvastatin (Lipitor), 80 MG PO DAILY B-Complex W/Biotin & Folic Aci (Super B-Complex), 1 CAP PO DAILY Lisinopril (Lisinopril), 5 MG PO DAILY Magnesium (Magnesium 250 mg), 250 MG PO DAILY Pantoprazole Sodium (Protonix), 40 MG PO DAILY Potassium (Potassium), 99 MG PO BID Ranitidine (Zantac), 150 MG PO Q12 Scheduled PRN Nitroglycerin (Nitrostat), 0.4 MG UT UD PRN for Chest Pain Zolpidem Tartrate (Zolpidem Tartrate), 10 MG PO HS PRN for Sleep Allergies Coded Allergies: Prazosin (Verified Adverse Reaction, Intermediate, HYPOTENSION, 03/20/17) Physical Exam Vital Signs Date Time Temp Pulse Resp B/P (MAP) Pulse Ox O2 Delivery O2 Flow Rate FiO2 03/20/17 22:14 65 18 204/104 95 03/20/17 20:55 58 18 200/110 97 Room Air 03/20/17 19:44 57 18 195/91 97 Room Air 03/20/17 18:28 57 18 211/113 96 Room Air 03/20/17 16:40 55 03/20/17 16:36 54 18 220/110 96 Room Air 03/20/17 14:53 36.7 56 18 195/96 96 Room Air Physical Exam GENERAL: Awake, alert, well-appearing, in no distress HENT: Normocephalic, atraumatic. Dry mucous membranes. EYES: Normal conjunctiva. Sclera non-icteric. NECK: Supple. No nuchal rigidity. FROM. No JVD. RESPIRATORY: Clear to auscultation. CARDIAC: Regular rate, normal rhythm. Extremities warm and well perfused. Pulses equal. ABDOMEN: Soft, non-distended. Mild periumbilical tenderness, RLQ and LLQ tenderness, no peritoneal signs. No rebound or guarding. No masses. RECTAL: Deferred. MUSCULOSKELETAL: Chest examination reveals no tenderness. The back is symmetrical on inspection without obvious abnormality. There is no CVA tenderness to palpation. No joint edema. LOWER EXTREMITIES: Calves are equal size bilaterally and non-tender. No edema. No discoloration. NEURO: Normal sensorium. No sensory or motor deficits noted. SKIN: No rash or jaundice noted. Medical Decision & Procedures ER Provider Diagnostic Interpretation: Radiology results as stated below per my review and radiologist interpretation: CHEST ONE VIEW PORTABLE FINDINGS: The heart remains mildly enlarged. There are poststernotomy changes. No pleural effusions. No pneumothorax. A few linear densities at the left lung base favor scarring. This remains unchanged. No new focal lung consolidations. No evidence for pulmonary edema. IMPRESSION: No significant change compared to the prior study. No acute process. Electronically signed by: Trace Boyd M.D. 03/20/2017 4:40 PM Dictated Date/Time: 03/20/2017 4:[address] ANGIO ABD/PELVIS WITH CONTRAST FINDINGS: Visualized portions lung bases reveal mild basilar interstitial thickening. Emphysema is suspected. The heart is enlarged. No space-occupying hepatic masses are visualized. The hepatic and portal veins appear patent. The gallbladder is surgically absent. No splenic masses are visualized. No pancreatic masses are visualized. No adrenal masses are visualized. There is 11 mm right renal cyst. No solid renal masses are visualized. There is no hydronephrosis. Mild bilateral perinephric edema, unchanged. There are no transition zones indicate bowel obstruction. The appendix appears normal. There is no evidence of acute diverticulitis. There is mild prostamegaly. There is no free fluid. There is no ascites. There is no evidence of hemodynamically significant celiac artery stenosis. There is mild nonhemodynamically significant stenosis involving the superior mesenteric artery origin. There is been reimplantation of the left renal artery. There is approximately 50% stenosis at the proximal left renal artery. This remains unchanged. There is a 50% stenosis of the proximal right renal artery. The patient is status post aortobiiliac grafting. 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 This remains unchanged. There is no evidence of contrast extravasation. There is a 40% diameter narrowing at the level of each distal graft, common iliac artery anastomosis. There is no significantly significant external or common iliac artery stenosis. There is a 40% diameter narrowing of the left common femoral artery. There are diffuse atheromatous changes within the aorta. There are postsurgical changes involving the right iliac bone.. IMPRESSION: 1. Overall, no significant change compared to the prior study. No bowel wall thickening or obstruction. 2. 50% stenosis of the proximal right renal artery 3. Postsurgical changes of a left renal artery reimplantation. Stable 50% stenosis proximally. 4. Postsurgical changes of aorto biiliac grafting. 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 5. 40% diameter narrowing at the level of each distal iliac graft/common iliac artery anastomosis 6. 40% diameter narrowing of the left common femoral artery. Electronically signed by: Trace Boyd M.D. 03/20/2017 6:27 PM Dictated Date/Time: 03/20/2017 6:15 PM Laboratory Results 03/20/17 16:40 Red Blood Count 5.58, Mean Corpuscular Volume 85.1, Mean Corpuscular Hemoglobin 30.3, Mean Corpuscular Hemoglobin Concent 35.6, Mean Platelet Volume 10.7, Neutrophils (%) (Auto) 68.6, Lymphocytes (%) (Auto) 17.0, Monocytes (%) (Auto) 11.2, Eosinophils (%) (Auto) 2.8, Basophils (%) (Auto) 0.2, Neutrophils # (Auto ) 5.66, Lymphocytes # (Auto) 1.40, Monocytes # (Auto) 0.92, Eosinophils # (Auto ) 0.23, Basophils # (Auto) 0.02 03/20/17 16:40 Test 03/20/17 16:40 03/20/17 18:20 White Blood Count 8.25 K/uL (4.8-10.8) Red Blood Count 5.58 M/uL (4.7-6.1) Hemoglobin 16.9 g/dL (14.0-18.0) Hematocrit 47.5 % (42-52) Mean Corpuscular Volume 85.1 fL (80-100) Mean Corpuscular Hemoglobin 30.3 pg (25-34) Mean Corpuscular Hemoglobin Concent 35.6 g/dl (32-36) Platelet Count 166 K/uL (130-400) Mean Platelet Volume 10.7 fL (7.4-10.4) Neutrophils (%) (Auto) 68.6 % Lymphocytes (%) (Auto) 17.0 % Monocytes (%) (Auto) 11.2 % Eosinophils (%) (Auto) 2.8 % Basophils (%) (Auto) 0.2 % Neutrophils # (Auto) 5.66 K/uL (1.4-6.5) Lymphocytes # (Auto) 1.40 K/uL (1.2-3.4) Monocytes # (Auto) 0.92 K/uL (0.11-0.59) Eosinophils # (Auto) 0.23 K/uL (0-0.5) Basophils # (Auto) 0.02 K/uL (0-0.2) RDW Standard Deviation 42.1 fL (36.4-46.3) RDW Coefficient of Variation 13.5 % (11.5-14.5) Immature Granulocyte % (Auto) 0.2 % Immature Granulocyte # (Auto) 0.02 K/uL (0.00-0.02) Anion Gap 7.0 mmol/L (3-11) Est Creatinine Clear Calc Drug Dose 49.1 ml/min Estimated GFR () 59.2 Estimated GFR (Non- 51.1 BUN/Creatinine Ratio 15.3 (10-20) Lactic Acid Level 0.9 mmol/L (0.4-2.0) Calcium Level 9.2 mg/dl (8.5-10.1) Total Bilirubin 2.0 mg/dl (0.2-1) Direct Bilirubin 0.3 mg/dl (0-0.2) Aspartate Amino Transf (AST/SGOT) 17 U/L (15-37) Alanine Aminotransferase (ALT/SGPT) 21 U/L (12-78) Alkaline Phosphatase 114 U/L (45-117) Troponin I < 0.015 ng/ml (0-0.045) Total Protein 7.8 gm/dl (6.4-8.2) Albumin 4.0 gm/dl (3.4-5.0) Lipase 257 U/L (73-393) Urine Color YELLOW Urine Appearance CLEAR (CLEAR) Urine pH 5.0 (4.5-7.5) Urine Specific [place] 1.032 (1.000-1.030) Urine Protein TRACE (NEG) Urine Glucose (UA) NEG (NEG) Urine Ketones NEG (NEG) Urine Occult Blood NEG (NEG) Urine Nitrite NEG (NEG) Urine Bilirubin NEG (NEG) Urine Urobilinogen NEG (NEG) Urine Leukocyte Esterase NEG (NEG) Urine WBC (Auto) 1-5 /hpf (0-5) Urine RBC (Auto) 0-4 /hpf (0-4) Urine Hyaline Casts (Auto) 0 /lpf (0-5) Urine Epithelial Cells (Auto) 0-5 /lpf (0-5) Urine Bacteria (Auto) NEG (NEG) Laboratory results reviewed by me Medications Administered Medications (Trade) Dose Ordered Sig/[place] Route Start Time Stop Time Status Last Admin Dose Admin Lactated Ringer's 1,000 ml @ 999 mls/hr Q1H1M STAT IV 03/20/17 16:06 03/20/17 17:06 DC 03/20/17 17:13 999 MLS/HR Fentanyl Citrate (Fentanyl Inj) 50 mcg NOW STAT IV 03/20/17 17:05 03/20/17 17:07 DC 03/20/17 17:14 50 MCG Famotidine (Pepcid 20mg Iv Push) 20 mg NOW STAT IV 03/20/17 19:34 03/20/17 19:36 DC 03/20/17 20:07 20 MG Metoclopramide HCl (Reglan Inj) 5 mg NOW STAT IV 03/20/17 19:34 03/20/17 19:36 DC 03/20/17 20:07 5 MG ECG Indication: abdominal pain Rate (beats per minute): 57 Rhythm: atrial fibrillation Findings: no acute ischemic change, other (normal axis) Comparison ECG Date: January 2017 Change: Atrial fibrillation is new. ED Course 1603: The patient was evaluated in room C11B. A complete history and physical exam was performed. 1606: Lactated Ringer's 1000ml @ 999mls/hr IV. 1705: Fentanyl Inj 50mcg IV. 1912: I reevaluated and updated the patient. 1933: Reglan Inj 5mg IV, Famotidine 20mg IV. 2116: I spoke to the patient about his atrial fibrillation and he will follow up with his doctor. 2151: I reevaluated the patient. Discussed results and discharge instructions: He verbalized understanding and agreement. The patient is ready for discharge. Medical Decision I reviewed the patient's past medical history, medications, and the nursing notes as described above. The patient's presentation and history were concerning for gastroenteritis, gastritis, diverticulitis, constipation, AAA, endo leak, UTI, renal stone. The patient is an 82-year-old gentleman with a past medical history of CABG as well as AAA repair who presents emergency Department with persistent intermittent abdominal pain since yesterday per history of present illness. Denes CP, SOB, n/v, palpitations, dizziness. On arrival the patient appears uncomfortable but in no acute distress. He is afebrile stable vital signs. He has mild ajay-umbilical right and left lower quadrant tenderness to palpation but no peritoneal signs. Labs unremarkable including WBC and lactate wnl. Trop negative. UA negative. CTA of abd/pel unremarkable with stable findings. Patient with resolution of sx after IVF, reglan, and pepcid. Patient was incidentally found have new on-set Afib. CHADSVASC2 would be 4 thus indicating need for AC however patient prefers to f/u with his doctors to discuss future AC. Patient will to use daily full-dose ASA until he meets with his doctors. Findings and plan for follow-up reviewed with patient. Patient agreeable and d/c 'd per discharge instructions. Medication Reconcilliation Current Medication List: was personally reviewed by me Blood Pressure Screening Patient's blood pressure: Elevated blood pressure Blood pressure disposition: Referred to PCP Impression Primary Impression: Abdominal pain Additional Impression: Atrial fibrillation Scribe Attestation The scribe's documentation has been prepared under my direction and personally reviewed by me in its entirety. I confirm that the note above accurately reflects all work, treatment, procedures, and medical decision making performed by me. Departure Information Dispostion Home / Self-Care Referrals Jeff Rodas M.D. (PCP) Patient Instructions Atrial Fibrillation Dc, ED Abdominal Pain Unkn Cause Male, My [facility] Additional Instructions Please follow up with your primary care physician in the next 1-3 days for re- evaluation. The cause of your abdominal symptoms is unclear at this time, however you improved with IV fluids, reglan, and pepcid. Incidentally, your EKG showed atrial fibrillation, which given your age and medical history which suggests she would benefit from a blood thinner to minimize the risk of stroke. At this time you preferred to follow up with her doctor to discuss this further however he should take a full dose aspirin daily until further decisions are made. Otherwise, your exam, EKG, chest xray, CT angiography of your abdomen and aorta , and lab results did not show signs of an emergent condition at this time. Return to the emergency department for worsening symptoms as described in the accompanying instructions. Problem Qualifiers
[2017-03-20] MEDS ORDERED: OPTIRAY 320 IV PRN (16:30)
--- NOTE | 2017-03-20 16:41 | DIAGNOSTIC IMAGING REPORT ---
CHEST ONE VIEW PORTABLE HISTORY: Atypical chest pain. COMPARISON: Chest 02/18/2017. FINDINGS: The heart remains mildly enlarged. There are poststernotomy changes. No pleural effusions. No pneumothorax. A few linear densities at the left lung base favor scarring. This remains unchanged. No new focal lung consolidations. No evidence for pulmonary edema. IMPRESSION: No significant change compared to the prior study. No acute process. Electronically signed by: Trace Boyd M.D. 03/20/2017 4:40 PM Dictated Date/Time: 03/20/2017 4:38 PM
[2017-03-20 17:01] LABS: BASO % 0.2 %; BASO ABS # 0.02 K/uL (0-0.2); COMPLETE YES; EOS % 2.8 %; HEMATOCRIT 47.5 % (42-52); IG% 0.2 %; MEAN CELL VOLUME 85.1 fL (80-100); MEAN CORPUSCULAR HEMOGLOBIN 30.3 pg (25-34); MEAN CORPUSCULAR HGB CONC 35.6 g/dl (32-36); MEAN PLATELET VOLUME 10.7 fL (7.4-10.4); MONO % 11.2 %; NEUT % 68.6 %; PLATELET COUNT 166 K/uL (130-400); RED BLOOD COUNT 5.58 M/uL (4.7-6.1); WHITE BLOOD COUNT 8.25 K/uL (4.8-10.8)
[2017-03-20] MEDS ORDERED: FENTANYL CITRATE INJ 50 MCG/1 ML 2 ML VIAL IV STA (17:05)
[2017-03-20 17:27] LABS: ALT/SGPT 21 U/L (12-78); BLOOD UREA NITROGEN 20 mg/dl (7-18); BUN/CREATININE RATIO 15.3 (10-20); CALCIUM 9.2 mg/dl (8.5-10.1); CARBON DIOXIDE 27 mmol/L (21-32); CHLORIDE 105 mmol/L (98-107); CREATININE 1.31 mg/dl (0.60-1.40); GLUCOSE 91 mg/dl (70-99); POTASSIUM 4.1 mmol/L (3.5-5.1); SODIUM 139 mmol/L (136-145)
[2017-03-20 17:32] LABS: ALKALINE PHOSPHATASE 114 U/L (45-117); AST/SGOT 17 U/L (15-37)
--- NOTE | 2017-03-20 18:29 | DIAGNOSTIC IMAGING REPORT ---
CT ANGIO ABD/PELVIS WITH CONTRAST CT DOSE: 508.04 mGy.cm CLINICAL HISTORY: H/O AAA REPAIR . Generalized abdominal pain. TECHNIQUE: Multiaxial CT images of the abdomen and pelvis performed following the use of intravenous contrast to evaluate the arterial structures.. MIP imaging was performed COMPARISON STUDY: Abdomen and pelvis CTA 05/23/2016. FINDINGS: Visualized portions lung bases reveal mild basilar interstitial thickening. Emphysema is suspected. The heart is enlarged. No space-occupying hepatic masses are visualized. The hepatic and portal veins appear patent. The gallbladder is surgically absent. No splenic masses are visualized. No pancreatic masses are visualized. No adrenal masses are visualized. There is 11 mm right renal cyst. No solid renal masses are visualized. There is no hydronephrosis. Mild bilateral perinephric edema, unchanged. There are no transition zones indicate bowel obstruction. The appendix appears normal. There is no evidence of acute diverticulitis. There is mild prostamegaly. There is no free fluid. There is no ascites. There is no evidence of hemodynamically significant celiac artery stenosis. There is mild nonhemodynamically significant stenosis involving the superior mesenteric artery origin. There is been reimplantation of the left renal artery. There is approximately 50% stenosis at the proximal left renal artery. This remains unchanged. There is a 50% stenosis of the proximal right renal artery. The patient is status post aortobiiliac grafting. 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 This remains unchanged. There is no evidence of contrast extravasation. There is a 40% diameter narrowing at the level of each distal graft, common iliac artery anastomosis. There is no significantly significant external or common iliac artery stenosis. There is a 40% diameter narrowing of the left common femoral artery. There are diffuse atheromatous changes within the aorta. There are postsurgical changes involving the right iliac bone.. IMPRESSION: 1. Overall, no significant change compared to the prior study. No bowel wall thickening or obstruction. 2. 50% stenosis of the proximal right renal artery 3. Postsurgical changes of a left renal artery reimplantation. Stable 50% stenosis proximally. 4. Postsurgical changes of aorto biiliac grafting. 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 5. 40% diameter narrowing at the level of each distal iliac graft/common iliac artery anastomosis 6. 40% diameter narrowing of the left common femoral artery. Electronically signed by: Trace Boyd M.D. 03/20/2017 6:27 PM Dictated Date/Time: 03/20/2017 6:15 PM
[2017-03-20 18:42] LABS: URINE APPEARANCE CLEAR (CLEAR); URINE BILIRUBIN NEG (NEG); URINE COLOR YELLOW; URINE EPITHELIAL CELL AUTO 0-5 /lpf (0-5); URINE NITRITE NEG (NEG); URINE SPECIFIC GRAVITY 1.032 (1.000-1.030); UROBILINOGEN NEG (NEG); ZZUR CULT IF INDIC CLEAN CATCH NO
[2017-03-20 18:43] LABS: MANUAL MICROSCOPIC REQUIRED? NO; REVIEW REQ? NO
[2017-03-20] MEDS ORDERED: METOCLOPRAMIDE HCL INJ 5 MG/ML 2 ML VIAL IV STA (19:34)
[2017-03-20] MEDS ORDERED: FAMOTIDINE 20MG/5ML IV PUSH IV STA (19:34)
[2017-03-20 22:14] VITALS: BP 204/104; PULSE 65; O2SAT 95
== END 2017-03-20 22:16 | disposition home or self-care (01) ==
LOC: C.EDB 14:53 → C.EDC 22:16
DX: I48.91 Unspecified atrial fibrillation (principal); R10.9 Unspecified abdominal pain; I12.9 Hypertensive chronic kidney disease with stage 1 through stage 4 chronic kidney disease, or unspecified chronic kidney disease; N18.9 Chronic kidney disease, unspecified; I25.10 Atherosclerotic heart disease of native coronary artery without angina pectoris; I25.2 Old myocardial infarction; Z95.1 Presence of aortocoronary bypass graft; Z79.82 Long term (current) use of aspirin; Z79.899 Other long term (current) drug therapy; Z88.8 Allergy status to other drugs, medicaments and biological substances; Z83.79 Family history of other diseases of the digestive system; Z82.49 Family history of ischemic heart disease and other diseases of the circulatory system; Z84.1 Family history of disorders of kidney and ureter

== ENCOUNTER 2017-03-25 17:34 | Inpatient (IN) | payer OTHER ==
[~2017-03-25] VITALS: Ht 175.3 cm; Wt 90.1 kg
[~2017-03-25 17:34] MED LIST changes: -HYDR-5688 PO
[2017-03-25] MEDS ORDERED: TNR50 PO (18:43)
[2017-03-25] MEDS ORDERED: AMLO-110 PO (18:43)
[2017-03-25] MEDS ORDERED: APIX1TAB PO (18:43)
[2017-03-25] MEDS ORDERED: LISI-461 PO (18:43)
[2017-03-25] MEDS ORDERED: MAGN250T3 PO (18:43)
[2017-03-25 18:48] LABS: HEMATOCRIT 46.8 % (42-52); MEAN CELL VOLUME 84.6 fL (80-100); MEAN CORPUSCULAR HEMOGLOBIN 29.8 pg (25-34); MEAN CORPUSCULAR HGB CONC 35.3 g/dl (32-36); MEAN PLATELET VOLUME 11.1 fL (7.4-10.4); PLATELET COUNT 156 K/uL (130-400); RED BLOOD COUNT 5.53 M/uL (4.7-6.1); WHITE BLOOD COUNT 16.92 K/uL (4.8-10.8)
[2017-03-25 18:59] LABS: INR 1.1 (0.9-1.1); PARTIAL THROMBOPLASTIN RATIO 1.3; PROTHROMBIN TIME (PATIENT) 12.1 SECONDS (9.0-12.0)
[2017-03-25] MEDS ORDERED: ONDANSETRON INJ 2 MG/ML 2 ML VIAL IV STA (19:03)
[2017-03-25 19:10] LABS: BASO % 0.1 %; BASO ABS # 0.02 K/uL (0-0.2); COMPLETE YES; EOS % 0.1 %; IG% 0.2 %; LYMPH % 4.6 %; LYMPH ABS # 0.78 K/uL (1.2-3.4); MONO % 12.1 %; NEUT % 82.9 %
[2017-03-25 19:17] LABS: ALT/SGPT 17 U/L (12-78); BLOOD UREA NITROGEN 16 mg/dl (7-18); BUN/CREATININE RATIO 12.8 (10-20); CALCIUM 9.1 mg/dl (8.5-10.1); CARBON DIOXIDE 23 mmol/L (21-32); CHLORIDE 102 mmol/L (98-107); CREATININE 1.25 mg/dl (0.60-1.40); GLUCOSE 129 mg/dl (70-99); POTASSIUM 4.2 mmol/L (3.5-5.1); SODIUM 136 mmol/L (136-145)
[2017-03-25 19:23] LABS: ALKALINE PHOSPHATASE 125 U/L (45-117); AST/SGOT 35 U/L (15-37)
[2017-03-25] MEDS: FENTANYL CITRATE INJ 50 MCG/1 ML 2 ML VIAL IV PRN ×3 (19:24→21:54)
--- NOTE | 2017-03-25 19:26 | DIAGNOSTIC IMAGING REPORT ---
ABDOMEN 2VIEW W/PA CHEST RTN HISTORY: 82 years-old Male ABDOMINAL PAIN/GI acute generalized abdominal pain with constipation COMPARISON: Chest radiograph 03/20/2017, CT 03/20/2017 TECHNIQUE: PA view of the chest with erect and supine views of the abdomen FINDINGS: Cardiac silhouette is mildly enlarged, unchanged. Prior median sternotomy. There is atherosclerosis of the aorta. Linear subsegmental left basilar opacities suggest atelectasis or scarring. There is no pneumothorax, pleural effusion or focal airspace consolidation. The bones of the chest are grossly intact. No pneumoperitoneum on the upright projection. Cholecystectomy clips are noted. There are vascular calcifications within the abdomen. Bowel gas pattern is nonobstructive. No significant stool volume suggests constipation. No urolith. There are parenchymal calcifications of the prostate. Surgical clips are seen within the right inguinal region. There are degenerative changes of the pelvis and spine. IMPRESSION: 1. No acute cardiopulmonary process. 2. Nonobstructive bowel gas pattern without pneumoperitoneum. The above report was generated using voice recognition software. It may contain grammatical, syntax or spelling errors. Electronically signed by: Severino Guevara M.D. 03/25/2017 7:25 PM Dictated Date/Time: 03/25/2017 7:22 PM
[2017-03-25 20:59] LABS: URINE APPEARANCE CLEAR (CLEAR); URINE BILIRUBIN NEG (NEG); URINE COLOR DK YELLOW; URINE EPITHELIAL CELL AUTO 0-5 /lpf (0-5); URINE NITRITE NEG (NEG); URINE PH 5.5 (4.5-7.5); URINE SPECIFIC GRAVITY 1.024 (1.000-1.030); UROBILINOGEN NEG (NEG)
[2017-03-25 21:02] LABS: MANUAL MICROSCOPIC REQUIRED? NO; REVIEW REQ? NO
--- NOTE | 2017-03-25 21:20 | EMERGENCY ROOM VISIT NOTE ---
History Report prepared by Ani: Mulu Mejía Under the Supervision of: Dr. Bi Joe D.O. First contact with patient: 18:11 Chief Complaint: ABDOMINAL PAIN Stated Complaint: STOMACH PAIN Nursing Triage Summary: Pt presents with diffuse abd pain and b/l rib pain. Denies n/v/d. Pain began yesterday afternoon. Denies injury to ribs. Denies difficulty breathing. History of Present Illness The patient is an 82 year old male who presents to the Emergency Room with complaints of constant abdominal pain starting yesterday afternoon. The pain goes across his abdomen and up into his ribs. The pain started in his chest. This is his 3rd visit to the ED for this pain. He has been having this pain weekly since it started several weeks ago. He has had a CT and stress test. He notes that he has been constipated for 3 days now. He tried taking some Dulcolax at 1500 today. He denies any back pain, diarrhea, hematochezia, leg swelling, fever, or chills. He is not on any pain medications. He denies any tobacco or alcohol use. Source of History: patient Onset: yesterday afternoon Position: abdomen Quality: other (pain) Timing: constant Associated Symptoms: + chest pain, No fevers, No chills, No back pain, No hematochezia, No diarrhea Note: Pt reports constipation. Pt denies leg swelling. Review of Systems See HPI for pertinent positives & negatives. A total of 10 systems reviewed and were otherwise negative. Past Medical & Surgical Medical Problems: (1) Abdominal pain (2) Atypical chest pain (3) Benign hypertension (4) Coronary artery disease (5) Essential (primary) hypertension (6) Kidney disease (7) Myocardial infarction (8) Peripheral arterial disease (9) Renal artery stenosis Surgical Problems: (1) S/P quadruple vessel bypass Family History Gallbladder disease Heart disease Hypertension Kidney disease Kidney stones Social History Smoking Status: Former Smoker Alcohol Use: none Drug Use: none Marital Status: Housing Status: lives with family Occupation Status: retired Current/Historical Medications Scheduled Amlodipine (Norvasc), 5 MG PO DAILY Apixaban (Eliquis), 2.5 MG PO BID Aspirin (Aspirin Ec), 81 MG PO DAILY Atenolol (Tenormin), 25 MG PO QAM Atenolol (Atenolol), 50 MG PO QAFTERNOON Atorvastatin (Lipitor), 80 MG PO DAILY B-Complex W/Biotin & Folic Aci (Super B-Complex), 1 CAP PO DAILY Lisinopril (Zestril), 10 MG PO DAILY Magnesium (Magnesium 250 mg), 1 TAB PO DAILY Pantoprazole Sodium (Protonix), 40 MG PO DAILY Potassium (Potassium), 99 MG PO BID Ranitidine (Zantac), 150 MG PO Q12 Scheduled PRN Nitroglycerin (Nitrostat), 0.4 MG UT UD PRN for Chest Pain Zolpidem Tartrate (Zolpidem Tartrate), 10 MG PO HS PRN for Sleep Allergies Coded Allergies: Prazosin (Verified Adverse Reaction, Intermediate, HYPOTENSION, 03/20/17) Physical Exam Vital Signs Date Time Temp Pulse Resp B/P (MAP) Pulse Ox O2 Delivery O2 Flow Rate FiO2 03/25/17 20:45 67 20 181/93 95 Room Air 03/25/17 19:19 70 20 169/85 Room Air 03/25/17 18:30 72 03/25/17 17:37 36.5 71 18 185/77 94 Room Air Physical Exam GENERAL: Patient is awake, alert, and in no acute distress. Patient is resting comfortably and showing no signs of anxiety EYES: The conjunctivae are clear. The pupils are round and reactive. EARS, NOSE, MOUTH AND THROAT: The nose is without any evidence of any deformity. Mucous membranes are moist tongue is midline NECK: The neck is nontender and supple. RESPIRATORY: Normal respiratory effort is noted there is no evidence of wheezing rhonchi or rales CARDIOVASCULAR: Irregular rhythm noted to auscultation. No definite murmur noted. GASTROINTESTINAL: The abdomen is mildly distended and diffusely tender. No guarding or rigidity noted. BACK: No midline tenderness or or step-off noted range of motion in flexion extension as well as rotation no signs of muscle spasm noted MUSCULOSKELETAL/EXTREMITIES: There is no evidence of gross deformity full range of motion is noted in the hips and shoulders SKIN: There is no obvious evidence of any rash. There are no petechiae, pallor or cyanosis noted. NEUROLOGIC: Patient is awake alert and oriented x3 Medical Decision & Procedures ER Provider Diagnostic Interpretation: X-ray results as stated below per interpretation by me and the radiologist. ABDOMEN 2VIEW W/PA CHEST RTN HISTORY: 82 years-old Male ABDOMINAL PAIN/GI acute generalized abdominal pain with constipation COMPARISON: Chest radiograph 03/20/2017, CT 03/20/2017 TECHNIQUE: PA view of the chest with erect and supine views of the abdomen FINDINGS: Cardiac silhouette is mildly enlarged, unchanged. Prior median sternotomy. There is atherosclerosis of the aorta. Linear subsegmental left basilar opacities suggest atelectasis or scarring. There is no pneumothorax, pleural effusion or focal airspace consolidation. The bones of the chest are grossly intact. No pneumoperitoneum on the upright projection. Cholecystectomy clips are noted. There are vascular calcifications within the abdomen. Bowel gas pattern is nonobstructive. No significant stool volume suggests constipation. No urolith. There are parenchymal calcifications of the prostate. Surgical clips are seen within the right inguinal region. There are degenerative changes of the pelvis and spine. IMPRESSION: 1. No acute cardiopulmonary process. 2. Nonobstructive bowel gas pattern without pneumoperitoneum. The above report was generated using voice recognition software. It may contain grammatical, syntax or spelling errors. Electronically signed by: Severino Guevara M.D. 03/25/2017 7:25 PM Dictated Date/Time: 03/25/2017 7:22 PM Laboratory Results Test 03/25/17 18:30 03/25/17 20:45 Immature Granulocyte % (Auto) 0.2 % White Blood Count 16.92 K/uL (4.8-10.8) Red Blood Count 5.53 M/uL (4.7-6.1) Hemoglobin 16.5 g/dL (14.0-18.0) Hematocrit 46.8 % (42-52) Mean Corpuscular Volume 84.6 fL (80-100) Mean Corpuscular Hemoglobin 29.8 pg (25-34) Mean Corpuscular Hemoglobin Concent 35.3 g/dl (32-36) Platelet Count 156 K/uL (130-400) Mean Platelet Volume 11.1 fL (7.4-10.4) Neutrophils (%) (Auto) 82.9 % Lymphocytes (%) (Auto) 4.6 % Monocytes (%) (Auto) 12.1 % Eosinophils (%) (Auto) 0.1 % Basophils (%) (Auto) 0.1 % Neutrophils # (Auto) 14.03 K/uL (1.4-6.5) Lymphocytes # (Auto) 0.78 K/uL (1.2-3.4) Monocytes # (Auto) 2.04 K/uL (0.11-0.59) Eosinophils # (Auto) 0.01 K/uL (0-0.5) Basophils # (Auto) 0.02 K/uL (0-0.2) Immature Granulocyte # (Auto) 0.04 K/uL (0.00-0.02) Red Blood Cell Morphology Unremarkable Prothrombin Time 12.1 SECONDS (9.0-12.0) Prothromb Time International Ratio 1.1 (0.9-1.1) Activated Partial Thromboplast Time 32.7 SECONDS (21.0-31.0) Partial Thromboplastin Ratio 1.3 Total Bilirubin 2.5 mg/dl (0.2-1) Direct Bilirubin 0.3 mg/dl (0-0.2) Aspartate Amino Transf (AST/SGOT) 35 U/L (15-37) Alanine Aminotransferase (ALT/SGPT) 17 U/L (12-78) Alkaline Phosphatase 125 U/L (45-117) Total Creatine Kinase 49 U/L (39-308) Creatine Kinase MB < 0.5 ng/ml (0.5-3.6) Creatine Kinase MB Ratio (0-3.0) Troponin I < 0.015 ng/ml (0-0.045) Total Protein 7.8 gm/dl (6.4-8.2) Albumin 3.8 gm/dl (3.4-5.0) Lipase 222 U/L (73-393) Urine Color DK YELLOW Urine Appearance CLEAR (CLEAR) Urine pH 5.5 (4.5-7.5) Urine Specific [place] 1.024 (1.000-1.030) Urine Protein 3+ (NEG) Urine Glucose (UA) NEG (NEG) Urine Ketones 1+ (NEG) Urine Occult Blood NEG (NEG) Urine Nitrite NEG (NEG) Urine Bilirubin NEG (NEG) Urine Urobilinogen NEG (NEG) Urine Leukocyte Esterase NEG (NEG) Urine WBC (Auto) 1-5 /hpf (0-5) Urine RBC (Auto) 0-4 /hpf (0-4) Urine Hyaline Casts (Auto) 1-5 /lpf (0-5) Urine Epithelial Cells (Auto) 0-5 /lpf (0-5) Urine Bacteria (Auto) NEG (NEG) Laboratory results per my review. Medications Administered Medications (Trade) Dose Ordered Sig/[place] Route Start Time Stop Time Status Last Admin Dose Admin Fentanyl Citrate (Fentanyl Inj) 50 mcg Q15M PRN IV 03/25/17 19:15 03/25/17 22:38 DC 03/25/17 21:54 50 MCG Ondansetron HCl (Zofran Inj) 4 mg NOW STAT IV 03/25/17 19:03 03/25/17 19:05 DC 03/25/17 19:24 4 MG ECG Indication: chest pain Rate (beats per minute): 75 Rhythm: atrial fibrillation Findings: other (no PVC, no acute ST segment abnormality) Comparison ECG Date: 20-Mar-2017 Change: no significant change ED Course 1812: The patient was evaluated in room A9B. A complete history and physical examination were performed. 1902: Zofran Inj 4 mg IV. 1914: Fentanyl Citrate 50 mcg. 2027: Upon reevaluation, the patient is stable. I discussed results and treatment plan with him. He verbalizes agreement and understanding. The patient will be evaluated for further management and care. 2032: I discussed the patient's case with Dr. Paul, [facility] [place]. The patient will be evaluated for further management. Medical Decision Prior records/ancillary studies reviewed. Triage Nursing notes reviewed. The patient's history was concerning for abdominal pain. Differential diagnosis: Etiologies such as appendicitis, diverticulitis, PUD, biliary pathology, UTI, pancreatitis, obstruction, mesenteric ischemia, aortic pathology, infections, inflammatory bowel disease, renal colic, as well as others were entertained. The patient is an 82-year-old male who presented to the emergency department for an evaluation of abdominal pain. The patient was seen in our facility for similar complaints. At that time he was found to be in atrial fibrillation which according to the charting is a new diagnosis for him. The patient was felt to be at high risk for embolic phenomena due to the new A. fib as well as the patient's physical exam. He had a CT angiography the abdomen performed on his most recent visit but did not show definite cause for his pain. The patient was feeling better and refused admission at that time. He return to emergency department today with worsening symptoms. Patient was treated with IV pain medicine and IV antiemetics. I discussed the patient's laboratory and radiographic studies with him. Because of his elevated white blood cell count and persistent atrial fibrillation I discussed his case with the on-call [facility] is. I'm unsure what diagnostic study to get next because his CT angiography the abdomen was so recent. They have agreed to evaluate the patient in emergency apartment for further management and disposition. Medication Reconcilliation Current Medication List: was personally reviewed by me Blood Pressure Screening Patient's blood pressure: Elevated blood pressure Consults Time Called: 2029 Consulting Physician: Dr. Paul [facility] [place] Returned Call: 2032 I discussed the patient's case with him. The patient will be evaluated for further management. Impression Primary Impression: New onset atrial fibrillation Additional Impressions: Abdominal pain Elevated white blood cell count Scribe Attestation The scribe's documentation has been prepared under my direction and personally reviewed by me in its entirety. I confirm that the note above accurately reflects all work, treatment, procedures, and medical decision making performed by me. Departure Information Dispostion Being Evaluated By Hospitalist Referrals Jeff Rodas M.D. (PCP) Patient Instructions My [facility] Problem Qualifiers Additional Impressions: Abdominal pain Abdominal location: generalized Qualified Codes: R10.84 - Generalized abdominal pain Elevated white blood cell count Leukocytosis type: unspecified Qualified Codes: D72.829 - Elevated white blood cell count, unspecified
[2017-03-25] MEDS ORDERED: POLYETHYLENE (MIRALAX) 17 GM PACK PO PRN (21:30)
[2017-03-25] MEDS ORDERED: MAGNESIUM HYDROXIDE SUSP 30 ML UDC PO PRN (21:30)
[2017-03-25] MEDS ORDERED: ZOLPIDEM TARTRATE 10 MG TAB PO PRN (21:30)
[2017-03-25] MEDS ORDERED: ALUMINUM/MAGNESIUM/SIMETH (MAALOX MAX) 30 ML UDC PO PRN (21:30)
[2017-03-25] MEDS ORDERED: FAMOTIDINE IV INJ 20 MG in DEXTROSE 5% 100ML 100 ML IV SCH (21:30)
[2017-03-25] MEDS ORDERED: ACETAMINOPHEN 325 MG TAB PO PRN (21:30)
[2017-03-25] MEDS ORDERED: NITROGLYCERIN 0.4 MG SL PER TAB CHARGE UT PRN (21:30)
[2017-03-25] MEDS ORDERED: ONDANSETRON INJ 2 MG/ML 2 ML VIAL IV PRN (21:30)
[2017-03-25 22:35] VITALS: BP 130/80; PULSE 65; TEMP 37.2; O2SAT 95; Ht 175.3 cm; Wt 90.1 kg
[2017-03-25] MEDS ORDERED: BISACODYL 10 MG SUPP PR STA (22:53)
[2017-03-25] MEDS: NSS + 20MEQ KCL 1000ML 1,000 ML IV SCH (23:20)
[2017-03-25] MEDS: MoRPHine SULFATE 4 MG/ML 1 ML CARP\\VIAL IV PRN (23:23)
[2017-03-26] VITALS (9 sets, daily range): BP systolic 101–139; BP diastolic 58–77; PULSE 56–83; TEMP 36.6–37.1; O2SAT 91–96
[2017-03-26] MEDS: FAMOTIDINE IV INJ 20 MG in SYRINGE 3 ML IV SCH ×3 (00:57→23:19)
[2017-03-26] MEDS: MoRPHine SULFATE 4 MG/ML 1 ML CARP\\VIAL IV PRN ×5 (04:35→20:43)
--- NOTE | 2017-03-26 04:35 | History and Physical ---
History & Physical Date & Time of Service: Mar 26, 2017 at 04:25 Chief Complaint: Abdominal Pain, Peripheral Arterial Disease Primary Care Physician: Jeff Rodas M.D. History of Present Illness Source: patient This is a pleasant 82-year-old gentleman with a history of peripheral arterial disease who presents to the emergency room today with ongoing abdominal pain. He states that abdominal pain has been going on for the past 3 weeks. The patient reports that the pain goes across his stomach without radiation into the back or the groin. The pain is usually 8/10. He thinks it may be associated with meals. The patient denies having any nausea or vomiting. He denies any diarrhea or constipation. He has not had any blood in the stools. His last bowel movement was 3 days ago. He denies any fevers chills or sweats. He notes poor oral intake. The patient was seen in the emergency room approximate 5 days prior with similar complaint. He did have a CT of the abdomen was not suggestive of colitis. In addition the patient was given a diagnosed over the past few days with atrial fibrillation and was started on Eliquis at that time. The patient was discharged home but continued to have symptoms of abdominal pain; the patient came back to the ED for evaluation. Given the patients extensive history of peripheral vascular disease, the decision was made to admit the patient to evaluate for possible ischemic bowel. Past Medical/Surgical History Medical Problems: (1) Benign hypertension Status: Chronic CAD Atrial Fibrillation GERD Hyperlipidemia (2) Coronary artery disease Status: Chronic (3) Kidney disease Status: Chronic (4) Myocardial infarction Status: Resolved (5) Renal artery stenosis Status: Chronic Surgical Problems: (1) S/P quadruple vessel bypass Status: Resolved S/p Right ankle surgery S/p Cholecystectomy S/p bilateral shoulder surgery Mutiple BCC excisions Family History Gallbladder disease Heart disease Hypertension Kidney disease Kidney stones Social History Smoking Status: Never Smoker Smokeless Tobacco Use: No Alcohol Use: none Drug Use: none Housing status: lives alone Occupational Status: retired Immunizations History of Influenza Vaccine: N/A History of Tetanus Vaccine?: Unknown History of Pneumococcal: Yes History of Hepatitis B Vaccine: Unknown Multi-Drug Resistant Organisms History of MDRO: No Allergies Coded Allergies: Prazosin (Verified Adverse Reaction, Intermediate, HYPOTENSION, 03/20/17) Home Medications Scheduled Amlodipine (Norvasc), 5 MG PO DAILY Apixaban (Eliquis), 2.5 MG PO BID Aspirin (Aspirin Ec), 81 MG PO DAILY Atenolol (Tenormin), 25 MG PO QAM Atenolol (Atenolol), 50 MG PO QAFTERNOON Atorvastatin (Lipitor), 80 MG PO DAILY B-Complex W/Biotin & Folic Aci (Super B-Complex), 1 CAP PO DAILY Lisinopril (Zestril), 10 MG PO DAILY Magnesium (Magnesium 250 mg), 1 TAB PO DAILY Pantoprazole Sodium (Protonix), 40 MG PO DAILY Potassium (Potassium), 99 MG PO BID Ranitidine (Zantac), 150 MG PO Q12 Scheduled PRN Nitroglycerin (Nitrostat), 0.4 MG UT UD PRN for Chest Pain Zolpidem Tartrate (Zolpidem Tartrate), 10 MG PO HS PRN for Sleep Review of Systems A 10 point review of systems was negative unless stated above. Physical Exam Vital Signs Date Time Temp Pulse Resp B/P (MAP) Pulse Ox O2 Delivery O2 Flow Rate FiO2 03/26/17 00:00 96 Room Air 03/26/17 00:00 Room Air 03/25/17 22:35 37.2 65 18 130/80 95 Room Air 03/25/17 21:50 67 20 176/73 96 Room Air 03/25/17 20:45 67 20 181/93 95 Room Air 03/25/17 19:19 70 20 169/85 Room Air 03/25/17 18:30 72 03/25/17 17:37 36.5 71 18 185/77 94 Room Air General Appearance: WD/WN, no apparent distress Head: normocephalic, atraumatic Eyes: normal inspection, EOMI ENT: hearing grossly normal, pharynx normal, + pertinent finding (dry mucus membranes) Neck: supple, no adenopathy, no JVD Respiratory/Chest: lungs clear, no respiratory distress Cardiovascular: regular rate, rhythm, no gallop, no murmur Abdomen/GI: normal bowel sounds, soft, + tenderness (generalized tenderness without guarding rigidity or rebound) Back: no CVA tenderness, no muscle spasm Extremities/Musculoskelatal: no calf tenderness, no pedal edema Neurologic/Psych: alert, normal mood/affect, oriented x 3 Skin: normal color, warm/dry, no rash Lymphatic: no adenopathy Diagnostics Laboratory Results Results Past 24 Hours Test 03/25/17 18:30 03/25/17 20:45 03/25/17 22:50 Range/Units White Blood Count 16.92 4.8-10.8 K/uL Red Blood Count 5.53 4.7-6.1 M/uL Hemoglobin 16.5 14.0-18.0 g/dL Hematocrit 46.8 42-52 % Mean Corpuscular Volume 84.6 80-100 fL Mean Corpuscular Hemoglobin 29.8 25-34 pg Mean Corpuscular Hemoglobin Concent 35.3 32-36 g/dl Platelet Count 156 130-400 K/uL Mean Platelet Volume 11.1 7.4-10.4 fL Neutrophils (%) (Auto) 82.9 % Lymphocytes (%) (Auto) 4.6 % Monocytes (%) (Auto) 12.1 % Eosinophils (%) (Auto) 0.1 % Basophils (%) (Auto) 0.1 % Neutrophils # (Auto) 14.03 1.4-6.5 K/uL Lymphocytes # (Auto) 0.78 1.2-3.4 K/uL Monocytes # (Auto) 2.04 0.11-0.59 K/uL Eosinophils # (Auto) 0.01 0-0.5 K/uL Basophils # (Auto) 0.02 0-0.2 K/uL RDW Standard Deviation 41.6 36.4-46.3 fL RDW Coefficient of Variation 13.5 11.5-14.5 % Immature Granulocyte % (Auto) 0.2 % Immature Granulocyte # (Auto) 0.04 0.00-0.02 K/uL Red Blood Cell Morphology Unremarkable Prothrombin Time 12.1 9.0-12.0 SECONDS Prothromb Time International Ratio 1.1 0.9-1.1 Activated Partial Thromboplast Time 32.7 21.0-31.0 SECONDS Partial Thromboplastin Ratio 1.3 Sodium Level 136 136-145 mmol/L Potassium Level 4.2 3.5-5.1 mmol/L Chloride Level 102 98-107 mmol/L Carbon Dioxide Level 23 21-32 mmol/L Anion Gap 10.0 3-11 mmol/L Blood Urea Nitrogen 16 7-18 mg/dl Creatinine 1.25 0.60-1.40 mg/dl Est Creatinine Clear Calc Drug Dose 47.2 ml/min Estimated GFR () 62.6 Estimated GFR (Non- 54.0 BUN/Creatinine Ratio 12.8 10-20 Random Glucose 129 70-99 mg/dl Calcium Level 9.1 8.5-10.1 mg/dl Total Bilirubin 2.5 0.2-1 mg/dl Direct Bilirubin 0.3 0-0.2 mg/dl Aspartate Amino Transf (AST/SGOT) 35 15-37 U/L Alanine Aminotransferase (ALT/SGPT) 17 12-78 U/L Alkaline Phosphatase 125 45-117 U/L Total Creatine Kinase 49 39-308 U/L Creatine Kinase MB < 0.5 0.5-3.6 ng/ml Creatine Kinase MB Ratio 0-3.0 Troponin I < 0.015 0-0.045 ng/ml Total Protein 7.8 6.4-8.2 gm/dl Albumin 3.8 3.4-5.0 gm/dl Lipase 222 73-393 U/L Urine Color DK YELLOW Urine Appearance CLEAR CLEAR Urine pH 5.5 4.5-7.5 Urine Specific [place] 1.024 1.000-1.030 Urine Protein 3+ NEG Urine Glucose (UA) NEG NEG Urine Ketones 1+ NEG Urine Occult Blood NEG NEG Urine Nitrite NEG NEG Urine Bilirubin NEG NEG Urine Urobilinogen NEG NEG Urine Leukocyte Esterase NEG NEG Urine WBC (Auto) 1-5 0-5 /hpf Urine RBC (Auto) 0-4 0-4 /hpf Urine Hyaline Casts (Auto) 1-5 0-5 /lpf Urine Epithelial Cells (Auto) 0-5 0-5 /lpf Urine Bacteria (Auto) NEG NEG Lactic Acid Level 2.0 0.4-2.0 mmol/L Diagnostic Radiology ABDOMEN 2VIEW W/PA CHEST RTN HISTORY: 82 years-old Male ABDOMINAL PAIN/GI acute generalized abdominal pain with constipation COMPARISON: Chest radiograph 03/20/2017, CT 03/20/2017 TECHNIQUE: PA view of the chest with erect and supine views of the abdomen FINDINGS: Cardiac silhouette is mildly enlarged, unchanged. Prior median sternotomy. There is atherosclerosis of the aorta. Linear subsegmental left basilar opacities suggest atelectasis or scarring. There is no pneumothorax, pleural effusion or focal airspace consolidation. The bones of the chest are grossly intact. No pneumoperitoneum on the upright projection. Cholecystectomy clips are noted. There are vascular calcifications within the abdomen. Bowel gas pattern is nonobstructive. No significant stool volume suggests constipation. No urolith. There are parenchymal calcifications of the prostate. Surgical clips are seen within the right inguinal region. There are degenerative changes of the pelvis and spine. IMPRESSION: 1. No acute cardiopulmonary process. 2. Nonobstructive bowel gas pattern without pneumoperitoneum. The above report was generated using voice recognition software. It may contain grammatical, syntax or spelling errors. Electronically signed by: Severino Guevara M.D. 03/25/2017 7:25 PM Dictated Date/Time: 03/25/2017 7:[address] ANGIO ABD/PELVIS WITH CONTRAST CT DOSE: 508.04 mGy.cm CLINICAL HISTORY: H/O AAA REPAIR . Generalized abdominal pain. TECHNIQUE: Multiaxial CT images of the abdomen and pelvis performed following the use of intravenous contrast to evaluate the arterial structures.. MIP imaging was performed COMPARISON STUDY: Abdomen and pelvis CTA 05/23/2016. FINDINGS: Visualized portions lung bases reveal mild basilar interstitial thickening. Emphysema is suspected. The heart is enlarged. No space-occupying hepatic masses are visualized. The hepatic and portal veins appear patent. The gallbladder is surgically absent. No splenic masses are visualized. No pancreatic masses are visualized. No adrenal masses are visualized. There is 11 mm right renal cyst. No solid renal masses are visualized. There is no hydronephrosis. Mild bilateral perinephric edema, unchanged. There are no transition zones indicate bowel obstruction. The appendix appears normal. There is no evidence of acute diverticulitis. There is mild prostamegaly. There is no free fluid. There is no ascites. There is no evidence of hemodynamically significant celiac artery stenosis. There is mild nonhemodynamically significant stenosis involving the superior mesenteric artery origin. There is been reimplantation of the left renal artery. There is approximately 50% stenosis at the proximal left renal artery. This remains unchanged. There is a 50% stenosis of the proximal right renal artery. The patient is status post aortobiiliac grafting. 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 This remains unchanged. There is no evidence of contrast extravasation. There is a 40% diameter narrowing at the level of each distal graft, common iliac artery anastomosis. There is no significantly significant external or common iliac artery stenosis. There is a 40% diameter narrowing of the left common femoral artery. There are diffuse atheromatous changes within the aorta. There are postsurgical changes involving the right iliac bone.. IMPRESSION: 1. Overall, no significant change compared to the prior study. No bowel wall thickening or obstruction. 2. 50% stenosis of the proximal right renal artery 3. Postsurgical changes of a left renal artery reimplantation. Stable 50% stenosis proximally. 4. Postsurgical changes of aorto biiliac grafting. 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 5. 40% diameter narrowing at the level of each distal iliac graft/common iliac artery anastomosis 6. 40% diameter narrowing of the left common femoral artery. Electronically signed by: Trace Boyd M.D. 03/20/2017 6:27 PM Dictated Date/Time: 03/20/2017 6:15 PM The status of this report is Signed. Draft = Not yet reviewed or approved by Radiologist. Signed = Reviewed and approved by Radiologist. Impression Assessment and Plan This is an 82-year-old male, with a history of coronary disease and extensive peripheral arterial disease who presents with abdominal pain of unknown etiology. While clinical history and exam suggest ischemic colitis, labs and imaging are inconsistent with diagnosis at this time. The etiology is unclear at this time. Our plan for him is as follows: - Acute abdominal pain: Unlikely ischemic bowel. CT angiogram of the abdomen from 03/20/2017 is not indicative of hemodynamically significant narrowing of the celiac trunk, SMA or FRIEDA. I have discussed the imaging with radiology. An MR angiogram of the abdomen would have limited utility. Lactate is normal. We will monitor and provide supportive care. The patient will be kept NPO with ice chips and sips. Rehydrate with IV NSS + 20 mEq KCL at 125 ml/hr. IV pantoprazole and IV famotidine for reflux control. Pain control with Tylenol and morphine 2-4 mg IV every 4 hours PRN. Consult gastroenterology. The patient was recently diagnosed with atrial fibrillation in the past week and was discharged on anticoagulation. Echocardiogram will be done to evaluate for cardio-embolic foci. - Constipation: Dulcolax suppository now. MiraLAX regimen daily. - Hypertension: Continue Amlodipine and Lisinopril - Atrial fibrillation: Currently rate controlled. Continue Apixaban. Echocardiogram as noted above. - Coronary artery disease: Continue Aspirin, Atorvastatin, Atenolol and Nitroglycerine - Peripheral arterial disease: Continue ASA and Atorvastatin. - GERD: Home doses of Protonix and ranitidine at been held. IV Protonix and Famotidine will be administered to try and treat abdominal pain. - DVT prophylaxis: SCD, TEDs. The patient is on Apixaban. - OT and PT evaluations ordered. - Level 3, No intubation/mechanical ventilation - Admit telemetry Attending addendum: I have physically seen this patient, have supervised the medical residents activities, and agree with the H&P unless as otherwise noted. Assessment and Plan: Abdominal pain-- Differential includes ischemic bowel, kidney stones, colitis, constipation. CT angiography negative for involvement of celiac trunk, SMA or FRIEDA. No signs of neurologic involvement on CT. Bowel prep ordered Normal saline with potassium chloride 20 mEq 25 ML's per hour. Pantoprazole 40 mg IV daily Famotidine 20 mg IV every 12 hours Tylenol when necessary mild pain or temperature, morphine 2-4 mg IV every 4 hours when necessary severe pain. Atrial fibrillation/hypertension/CAD/PAD-- Continue amlodipine, lisinopril, Crixivan, aspirin, atenolol, nitroglycerin. Order 2-D echocardiogram with Dopplers Level of Care Telemetry Advanced Directives Existing Advance Directive: No Existing Living Will: No Existing Power of Staffing Rn: No Resuscitation Status [facility] Prophylaxis VTE Risk Assessment Done? Y/N: Yes Risk Level: Moderate Given or contraindicated: Other Anticoagulation (Apixaban) Social Service Consult None Apply
[2017-03-26 07:12] LABS: HEMATOCRIT 42.8 % (42-52); MEAN CELL VOLUME 86.5 fL (80-100); MEAN CORPUSCULAR HEMOGLOBIN 29.3 pg (25-34); MEAN CORPUSCULAR HGB CONC 33.9 g/dl (32-36); MEAN PLATELET VOLUME 11.2 fL (7.4-10.4); PLATELET COUNT 142 K/uL (130-400); RED BLOOD COUNT 4.95 M/uL (4.7-6.1); WHITE BLOOD COUNT 17.19 K/uL (4.8-10.8)
[2017-03-26 07:46] LABS: BUN/CREATININE RATIO 16.2 (10-20); CALCIUM 8.2 mg/dl (8.5-10.1); CREATININE 1.48 mg/dl (0.60-1.40); POTASSIUM 4.5 mmol/L (3.5-5.1)
[2017-03-26] MEDS: NSS + 20MEQ KCL 1000ML 1,000 ML IV SCH ×2 (07:48→16:08)
[2017-03-26] MEDS: APIXABAN 2.5 MG TAB PO SCH ×2 (07:48→20:43)
[2017-03-26] MEDS: PANTOprazole INJ 40 MG in SYRINGE 0 ML IV SCH ×2 (07:49→20:44)
[2017-03-26] MEDS: VITAMIN B COMPLEX TAB PO SCH (07:50)
[2017-03-26] MEDS: MAGNESIUM OXIDE 400 MG TAB PO SCH (07:50)
[2017-03-26] MEDS: ATORVASTATIN 40 MG TAB PO SCH (07:50)
[2017-03-26] MEDS: LISINOPRIL 10 MG TAB PO SCH (07:50)
[2017-03-26] MEDS: ASPIRIN 81 MG ECTAB PO SCH (07:51)
[2017-03-26] MEDS: AMLODIPINE BESYLATE 5 MG TAB PO SCH (07:51)
[2017-03-26] MEDS: POLYETHYLENE (MIRALAX) 17 GM PACK PO SCH (07:52)
[2017-03-26] MEDS ORDERED: MILK AND MOLASSES ENEMA PR ONE (11:15)
[2017-03-26] MEDS ORDERED: DICYCLOMINE HCL 20 MG TAB PO PRN (11:15)
--- NOTE | 2017-03-26 11:21 | ECHOCARDIOGRAM REPORT ---
*NOTICE TO RECEIVING [employer] This information is strictly Confidential and protected under [place] law. [place] law prohibits you from making any further disclosure of this information unless further disclosure is expressly permitted by the written consent of the person to whom it pertains or is authorized by law. A general authorization for the release of medical or other information is not sufficient for this purpose. Hospital accepts no responsibility if the information is made available to any other person, INCLUDING THE PATIENT. Interpretation Summary * Name: JULISSA ORELLANA Study Date: 03/26/2017 08:46 AM BP: 101/58 mmHg * Patient Location: [facility]\S\N288\S\2 HR: 62 * : 1935 (M/d/yyy) Gender: Male Height: 69 in * Age: 82 yrs Ethnicity: [place] Weight: 186 lb * Ordering Physician: Tino Leslie * Referring Physician: Self, Referred * Performed By: Jennifer Lomax RCS * * Reason For Study: ABD PAIN / NEW A-FIB / R/O CARDIOEMBOLIC ETIOLOGY / STARTED NOAC 5 DAYS AGO * BSA: 2.0 m2 * -- Conclusions -- * There is mild concentric left ventricular hypertrophy. * Left ventricular systolic function is normal. * There are regional wall motion abnormalities as specified. * The left atrium is mildly dilated. * Aortic valve sclerosis mild, without significant aortic valvular stenosis. * There is mild mitral regurgitation. Procedure Details * A complete two-dimensional transthoracic echocardiogram was performed (2D, M-mode, Doppler and color flow Doppler). * A saline contrast injection was performed to assess for cardiac shunting. * The injection was performed through an intravenous line in the right arm. * The attending nurse who injected the saline contrast was DOUG CAMARILLO CPL, RN. * A total of 10 cc of agitated saline was given. Left Ventricle * The left ventricle is grossly normal size. * There is mild concentric left ventricular hypertrophy. * Left ventricular systolic function is normal. * Ejection Fraction = 55-60%. * There are regional wall motion abnormalities as specified. * There appears to be mild hypokinesis involving the inferoposterior apex Right Ventricle * The right ventricle is normal in size and function. Atria * The left atrium is mildly dilated. * Right atrial size is normal. Mitral Valve * The mitral valve is grossly normal. * There is mild mitral regurgitation. Tricuspid Valve * The tricuspid valve is not well visualized, but is grossly normal. * There is trace tricuspid regurgitation. * Right ventricular systolic pressure is normal. Aortic Valve * Aortic valve sclerosis mild, without significant aortic valvular stenosis. * Non coronary cusp appears calcified Great Vessels * The aortic root is normal size. Pericardium/Pleural * There is no pericardial effusion. MMode 2D Measurements and Calculations IVSd 1.4 cm IVSs 1.8 cm LVIDd 5.2 cm LVIDs 4.1 cm LVPWd 1.4 cm LVPWs 1.4 cm IVS/LVPW 1.0 FS 21.7 % EDV(Teich) 132.2 ml ESV(Teich) 74.6 ml EF(Teich) 43.5 % EDV(cubed) 144.4 ml ESV(cubed) 69.4 ml EF(cubed) 51.9 % % IVS thick 32.1 % % LVPW thick 1.0 % LV mass(C)d 307.3 grams LV mass(C)dI 153.4 grams/m\S\2 LV mass(C)s 270.4 grams LV mass(C)sI 135.0 grams/m\S\2 SV(Teich) 57.6 ml SI(Teich) 28.7 ml/m\S\2 SV(cubed) 75.0 ml SI(cubed) 37.4 ml/m\S\2 Ao root diam 3.1 cm Ao root area 7.4 cm\S\2 LA dimension 4.6 cm LA/Ao 1.5 LVOT diam 2.1 cm LVOT area 3.6 cm\S\2 LVAd ap4 38.2 cm\S\2 LVLd ap4 8.6 cm EDV(MOD-sp4) 135.2 ml EDV(sp4-el) 143.7 ml LVAs ap4 25.3 cm\S\2 LVLs ap4 6.9 cm ESV(MOD-sp4) 75.8 ml ESV(sp4-el) 78.3 ml EF(MOD-sp4) 43.9 % EF(sp4-el) 45.5 % LVAd ap2 34.6 cm\S\2 LVLd ap2 8.8 cm EDV(MOD-sp2) 116.0 ml EDV(sp2-el) 115.8 ml LVAs ap2 23.4 cm\S\2 LVLs ap2 7.2 cm ESV(MOD-sp2) 62.0 ml ESV(sp2-el) 64.6 ml EF(MOD-sp2) 46.5 % EF(sp2-el) 44.2 % LVLd %diff 1.6 % EDV(MOD-bp) 123.9 ml LVLs %diff 3.8 % ESV(MOD-bp) 70.7 ml EF(MOD-bp) 42.9 % SV(MOD-sp4) 59.4 ml SI(MOD-sp4) 29.7 ml/m\S\2 SV(MOD-sp2) 54.0 ml SI(MOD-sp2) 26.9 ml/m\S\2 SV(MOD-bp) 53.2 ml SI(MOD-bp) 26.6 ml/m\S\2 SV(sp4-el) 65.3 ml SI(sp4-el) 32.6 ml/m\S\2 SV(sp2-el) 51.2 ml SI(sp2-el) 25.6 ml/m\S\2 Doppler Measurements and Calculations MV E max ana luisa 140.7 cm/sec MV P1/2t max ana luisa 134.6 cm/sec MV P1/2t 107.1 msec MVA(P1/2t) 2.1 cm\S\2 MV dec slope 368.1 cm/sec\S\2 MV dec time 0.20 sec Ao V2 max 119.8 cm/sec Ao max PG 5.7 mmHg Ao max PG (full) 3.1 mmHg ANTWON(V,A) 2.4 cm\S\2 ANTWON(V,D) 2.4 cm\S\2 LV V1 max PG 2.6 mmHg LV V1 max 81.4 cm/sec MR max ana luisa 450.9 cm/sec MR max PG 81.3 mmHg PA V2 max 116.5 cm/sec PA max PG 5.4 mmHg TR max ana luisa 253.2 cm/sec
--- NOTE | 2017-03-26 11:22 | Hospitalist Progress Note ---
Hospitalist Progress Note Date of Service Mar 26, 2017. Subjective Pt evaluation today including: conversation w/ patient, conversation w/ family (daughter at bedside), physical exam, lab review, review of studies, review of inpatient medication list Voiding: no voiding problems Patient admits to 7/10 diffuse abdominal pain. Notes pain is worse with movement. Admits to h/o GERD- takes Protonix and Zantac, notes he has been taking more PRN medication lately. Denies h/o EGD. No BM for 3 days- unusual for patient. Prior to 3 days ago, BMs were normal. Has been eating little over the last few days for fear of exacerbating issue. Never had a colonoscopy. Patient denies any fever, chills, sweats, lightheadedness, dizziness, vision changes, CP, palpitations, edema, SOB, wheezing, cough, nausea, vomiting, diarrhea, urinary symptoms, melena, numbness/tingling, weakness, muscle/joint pain, anxiety/depression, active bleeding, or new skin discoloration/changes. Medications Current Inpatient Medications Medications (Trade) Dose Ordered Sig/Katarina Route Start Time Stop Time Status Last Admin Dose Admin Potassium Chloride/Sodium Chloride 1,000 ml @ 125 mls/hr Q8H IV 03/25/17 23:00 04/24/17 22:59 03/26/17 07:48 125 MLS/HR Acetaminophen (Tylenol Tab) 650 mg Q4H PRN PO 03/25/17 21:30 04/24/17 21:29 Al Hydrox/Mg Hydrox/Simethicone (Maalox Max Susp) 15 ml Q4H PRN PO 03/25/17 21:30 04/24/17 21:29 Magnesium Hydroxide (Milk Of Magnesia Susp) 30 ml Q12H PRN PO 03/25/17 21:30 04/24/17 21:29 Ondansetron HCl (Zofran Inj) 4 mg Q6H PRN IV 03/25/17 21:30 04/24/17 21:29 Polyethylene (Miralax Powder Packet) 17 gm DAILY PRN PO 03/25/17 21:30 04/24/17 21:29 Amlodipine Besylate (Norvasc Tab) 5 mg DAILY PO 03/26/17 09:00 04/25/17 08:59 03/26/17 07:51 5 MG Apixaban (Eliquis Tab) 2.5 mg BID PO 03/26/17 09:00 04/25/17 08:59 03/26/17 07:48 2.5 MG Aspirin (Ecotrin Tab) 81 mg DAILY PO 03/26/17 09:00 04/25/17 08:59 03/26/17 07:51 81 MG Atenolol (Tenormin Tab) 50 mg QPM PO 03/26/17 21:00 04/25/17 20:59 Atenolol (Tenormin Tab) 25 mg QAM PO 03/26/17 09:00 04/25/17 08:59 03/26/17 07:52 25 MG Atorvastatin Calcium (Lipitor Tab) 80 mg DAILY PO 03/26/17 09:00 04/25/17 08:59 03/26/17 07:50 80 MG Lisinopril (Zestril Tab) 10 mg DAILY PO 03/26/17 09:00 04/25/17 08:59 03/26/17 07:50 10 MG Nitroglycerin (Nitrostat Tab) 0.4 mg UD PRN UT 03/25/17 21:30 04/24/17 21:29 Zolpidem Tartrate (Ambien Tab) 10 mg HS PRN PO 03/25/17 21:30 04/24/17 21:29 Vitamin B Complex (Vitamin B Complex) 1 tab DAILY PO 03/26/17 09:00 04/25/17 08:59 03/26/17 07:50 1 TAB Magnesium Oxide (Mag-Ox Tab) 400 mg DAILY PO 03/26/17 09:00 04/25/17 08:59 03/26/17 07:50 400 MG Miscellaneous Information (Order Awaiting Action) 1 ea QS N/A 03/26/17 00:00 04/25/17 00:00 Pantoprazole Sodium 40 mg/ Syringe 10 ml @ 5 mls/min DAILY@ IV 03/26/17 09:00 04/25/17 08:59 03/26/17 07:49 5 MLS/MIN Polyethylene (Miralax Powder Packet) 17 gm DAILY PO 03/26/17 09:00 04/25/17 08:59 03/26/17 07:52 17 GM Morphine Sulfate (MoRPHine SULFATE INJ) 4 mg Q4H PRN IV 03/25/17 22:00 04/08/17 21:59 03/26/17 08:40 4 MG Morphine Sulfate (MoRPHine SULFATE INJ) 2 mg Q4H PRN IV 03/25/17 22:00 04/08/17 21:59 Famotidine 20 mg/ Syringe 5 ml @ 2.5 mls/min Q12H IV 03/25/17 23:00 04/24/17 22:59 03/26/17 11:11 2.5 MLS/MIN Dicyclomine HCl (Bentyl Tab) 20 mg Q6H PRN PO 03/26/17 11:15 04/25/17 11:14 Objective Vital Signs Date Time Temp Pulse Resp B/P (MAP) Pulse Ox O2 Delivery O2 Flow Rate FiO2 03/26/17 08:00 93 Room Air 03/26/17 07:44 37.1 66 18 139/69 (92) 93 03/26/17 04:00 37.0 65 20 101/58 (72) 94 Room Air 03/26/17 04:00 Room Air 03/26/17 00:00 96 Room Air 03/26/17 00:00 Room Air 03/25/17 22:35 37.2 65 18 130/80 95 Room Air 03/25/17 21:50 67 20 176/73 96 Room Air 03/25/17 20:45 67 20 181/93 95 Room Air 03/25/17 19:19 70 20 169/85 Room Air 03/25/17 18:30 72 03/25/17 17:37 36.5 71 18 185/77 94 Room Air Physical Exam General Appearance: no apparent distress Eyes: normal inspection, PERRL ENT: hearing grossly normal Neck: supple Respiratory/Chest: lungs clear, normal breath sounds, no accessory muscle use Cardiovascular: regular rate, rhythm Abdomen: normal bowel sounds, non tender, soft Extremities: no pedal edema, no calf tenderness Neurologic/Psychiatric: alert, normal mood/affect, oriented x 3 Skin: normal color, warm/dry, no rash Laboratory Results Last 24 Hours Test 03/25/17 18:30 03/25/17 20:45 03/25/17 22:50 03/26/17 06:54 White Blood Count 16.92 K/uL 17.19 K/uL Red Blood Count 5.53 M/uL 4.95 M/uL Hemoglobin 16.5 g/dL 14.5 g/dL Hematocrit 46.8 % 42.8 % Mean Corpuscular Volume 84.6 fL 86.5 fL Mean Corpuscular Hemoglobin 29.8 pg 29.3 pg Mean Corpuscular Hemoglobin Concent 35.3 g/dl 33.9 g/dl Platelet Count 156 K/uL 142 K/uL Mean Platelet Volume 11.1 fL 11.2 fL Neutrophils (%) (Auto) 82.9 % Lymphocytes (%) (Auto) 4.6 % Monocytes (%) (Auto) 12.1 % Eosinophils (%) (Auto) 0.1 % Basophils (%) (Auto) 0.1 % Neutrophils # (Auto) 14.03 K/uL Lymphocytes # (Auto) 0.78 K/uL Monocytes # (Auto) 2.04 K/uL Eosinophils # (Auto) 0.01 K/uL Basophils # (Auto) 0.02 K/uL RDW Standard Deviation 41.6 fL 43.5 fL RDW Coefficient of Variation 13.5 % 13.7 % Immature Granulocyte % (Auto) 0.2 % Immature Granulocyte # (Auto) 0.04 K/uL Red Blood Cell Morphology Unremarkable Prothrombin Time 12.1 SECONDS Prothromb Time International Ratio 1.1 Activated Partial Thromboplast Time 32.7 SECONDS Partial Thromboplastin Ratio 1.3 Sodium Level 136 mmol/L 136 mmol/L Potassium Level 4.2 mmol/L 4.5 mmol/L Chloride Level 102 mmol/L 103 mmol/L Carbon Dioxide Level 23 mmol/L 27 mmol/L Anion Gap 10.0 mmol/L 6.0 mmol/L Blood Urea Nitrogen 16 mg/dl 24 mg/dl Creatinine 1.25 mg/dl 1.48 mg/dl Est Creatinine Clear Calc Drug Dose 47.2 ml/min 39.8 ml/min Estimated GFR () 62.6 51.1 Estimated GFR (Non- 54.0 44.1 BUN/Creatinine Ratio 12.8 16.2 Random Glucose 129 mg/dl 120 mg/dl Calcium Level 9.1 mg/dl 8.2 mg/dl Total Bilirubin 2.5 mg/dl Direct Bilirubin 0.3 mg/dl Aspartate Amino Transf (AST/SGOT) 35 U/L Alanine Aminotransferase (ALT/SGPT) 17 U/L Alkaline Phosphatase 125 U/L Total Creatine Kinase 49 U/L Creatine Kinase MB < 0.5 ng/ml Creatine Kinase MB Ratio Troponin I < 0.015 ng/ml Total Protein 7.8 gm/dl Albumin 3.8 gm/dl Lipase 222 U/L Urine Color DK YELLOW Urine Appearance CLEAR Urine pH 5.5 Urine Specific [place] 1.024 Urine Protein 3+ Urine Glucose (UA) NEG Urine Ketones 1+ Urine Occult Blood NEG Urine Nitrite NEG Urine Bilirubin NEG Urine Urobilinogen NEG Urine Leukocyte Esterase NEG Urine WBC (Auto) 1-5 /hpf Urine RBC (Auto) 0-4 /hpf Urine Hyaline Casts (Auto) 1-5 /lpf Urine Epithelial Cells (Auto) 0-5 /lpf Urine Bacteria (Auto) NEG Lactic Acid Level 2.0 mmol/L Diagnostic Results Interpretation Summary * Name: JULISSA ORELLANA Study Date: 03/26/2017 08:46 AM BP: 101/58 mmHg * Patient Location: [facility]\S\[facility]\S\2 HR: 62 * : 1935 (M/d/yyyy) Gender: Male Height: 69 in * Age: 82 yrs Ethnicity: [place] Weight: 186 lb * Ordering Physician: Tino Leslie * Referring Physician: Self, Referred * Performed By: Jennifer Lomax RCS * * Reason For Study: ABD PAIN / NEW A-FIB / R/O CARDIOEMBOLIC ETIOLOGY / STARTED NOAC 5 DAYS AGO * BSA: 2.0 m2 * -- Conclusions -- * There is mild concentric left ventricular hypertrophy. * Left ventricular systolic function is normal. * There are regional wall motion abnormalities as specified. * The left atrium is mildly dilated. * Aortic valve sclerosis mild, without significant aortic valvular stenosis. * There is mild mitral regurgitation. Procedure Details * A complete two-dimensional transthoracic echocardiogram was performed (2D, M-mode, Doppler and color flow Doppler). * A saline contrast injection was performed to assess for cardiac shunting. * The injection was performed through an intravenous line in the right arm. * The attending nurse who injected the saline contrast was DOUG CAMARILLO CPL, RN. * A total of 10 cc of agitated saline was given. Left Ventricle * The left ventricle is grossly normal size. * There is mild concentric left ventricular hypertrophy. * Left ventricular systolic function is normal. * Ejection Fraction = 55-60%. * There are regional wall motion abnormalities as specified. * There appears to be mild hypokinesis involving the inferoposterior apex Right Ventricle * The right ventricle is normal in size and function. Atria * The left atrium is mildly dilated. * Right atrial size is normal. Mitral Valve * The mitral valve is grossly normal. * There is mild mitral regurgitation. Tricuspid Valve * The tricuspid valve is not well visualized, but is grossly normal. * There is trace tricuspid regurgitation. * Right ventricular systolic pressure is normal. Aortic Valve * Aortic valve sclerosis mild, without significant aortic valvular stenosis. * Non coronary cusp appears calcified Great Vessels * The aortic root is normal size. Pericardium/Pleural * There is no pericardial effusion. Assessment and Plan This is an 82-year-old male, with a history of coronary disease and extensive peripheral arterial disease who presents with abdominal pain of unknown etiology. While clinical history and exam suggest ischemic colitis, labs and imaging are inconsistent with diagnosis at this time. The etiology is unclear at this time. Acute diffuse abdominal pain, etiology unknown: - Admitted to [facility] for cardiac monitoring - IV NSS + 20 mEq KCL @ 125 ml/hr until tolerating PO intake - NPO pending GI consultation - Tylenol and Morphine 2-4 mg IV q4 hours PRN - Abdominal x-ray negative for acute findings - CTA on 03/20/17- no acute findings- stable from previous study - Bentyl PRN for abdominal cramping - GI consulted, appreciate recommendations Constipation: - Dulcolax suppository x1 w/ small BM; give Milk and Molasses enema x1 today - MiraLAX regimen daily HTN- STABLE: Continue Amlodipine 5 mg daily and Lisinopril 10 mg daily Atrial fibrillation, CAD s/p CABG- follows w/ Dr. Rodas: - Continue Eliquis 2.5 mg BID, ASA 81 mg daily, Lipitor 80 mg daily, Atenolol 25 mg QAM and 50 mg afternoon, Nitro PRN - Negative dobutamine stress in 01/2017 - ECHO reviewed PAD: Continue ASA and Atorvastatin GERD: - Home doses of Protonix and Ranitidine at been held - IV Protonix and Famotidine DVT prophylaxis: Eliquis Code Status: LEVEL III, NO INTUBATION/MECH VENTILATION Dispo: From home- PT/OT and CM consulted
--- NOTE | 2017-03-26 17:51 | GASTROINTESTINAL CONSULTATION ---
DATE OF CONSULTATION: 03/26/2017 CHIEF COMPLAINT: Diffuse abdominal pain for 2 weeks. HISTORY OF PRESENT ILLNESS: Mr. Zayas is an 82-year-old white male who was presented on 3 occasions to the Emergency Room for a pattern of abdominal pain that is diffuse in nature, occurs anteriorly but on the last 2 events describes a pattern that it occurs in the left mid to lower chest region and migrates down into the abdomen diffusely. He was recently diagnosed with atrial fibrillation and was placed on Eliquis about 5 days ago. During his prior workups, he did have a CT angiogram which did show diffuse vascular disease, although none appears to be critically occlusive. The patient believes that the pain is worsened by meals and not made better with the bowel movement. He is also reported that his stools have been more sluggish lately. He denies any melena, bright red blood per rectum, diarrhea, back pain, hematemesis or coffee ground emesis. He does take Protonix at home for the past couple years for reflux disease. Although, pain does not awaken him from sleep, it is present most times of the day. Pain can be as intense as 8/10 in intensity. PAST MEDICAL HISTORY: Includes coronary artery disease; atrial fibrillation, newly diagnosed; GERD, hyperlipidemia, chronic kidney disease, myocardial infarction, renal artery stenosis, quadruple CABG. The patient also had right ankle surgery for fracture, status post cholecystectomy for stones approximately 15 years ago, bilateral shoulder surgery and dermatologic removal of basal cell carcinoma. He has also a history of hypertension. FAMILY HISTORY: Significant for gallbladder disease. There is no family history of colorectal cancer. However, all of his 3 children have colonoscopies and have polyps. The patient himself has never had a colonoscopy and reports no chronic GI symptoms except for those mentioned above. SOCIAL HISTORY: The patient denies tobacco usage. He does not use alcoholic beverages. Lives alone and is retired, but is an active golfer and travels. ALLERGIES: PRAZOSIN. HOME MEDICATIONS: Include amlodipine, Eliquis recently started, aspirin, atenolol, atorvastatin, lisinopril, magnesium, pantoprazole 40 mg daily, potassium supplements and Zantac 150 mg twice daily. REVIEW OF SYSTEMS: Otherwise noncontributory based on 13-point exam except for mentioned above. PHYSICAL EXAMINATION: GENERAL: Today shows a well-developed male in no acute distress. VITAL SIGNS: At the present time showed blood pressure 117/66, respirations 18, pulse 83, temperature 36.6, 95% on room air. GENERAL: The patient is awake, alert and oriented x3, accompanied by a family member. HEENT: Sclerae anicteric, conjunctiva moist. Oral mucosa moist. Normocephalic, atraumatic. NECK: There is no cervical or supraclavicular adenopathy. I do not appreciate thyromegaly. LUNGS: Clear to auscultation without rales, rhonchi or wheezes. HEART: Normal S1, S2 with an irregular pattern. ABDOMEN: Soft without tenderness at the present time. There is no rebound or guarding. There are positive bowel sounds. I do not appreciate abdominal bruits. There are no masses detected. There is no evidence for ascites or shifting dullness. EXTREMITIES: Without clubbing, cyanosis or edema. RECTAL: Deferred at this time. LABORATORY STUDIES: On admission show white count of 16.9, which rufina to 17.2 today; hemoglobin, however, stable of 16.5 and 14.5 today; MCV normal at 86, platelets 142,000. INR is 1.1. BUN and creatinine is 24 and 1.48 today with normal potassium. On admission, the patient had a normal lactate level at 2.0 with a slightly elevated bilirubin of 2.5, which is mostly indirect in pattern (direct bilirubin 0.3). AST 35, ALT 17, alkaline phosphatase is minimally elevated at 125. CK 49, MB fraction less than 0.5, troponin is less than 0.015. Albumin 3.8, lipase 222. Urinalysis showed ketones, but no evidence for nitrites, leukocyte esterase, or occult blood. IMAGING STUDIES: During this admission showed a chest x-ray and abdominal x-ray which revealed no acute pulmonary processes and a nonobstructive bowel gas pattern without pneumoperitoneum. CT scan from March 20 showed a surgically absent gallbladder, no evidence of splenic or pancreatic masses, adrenals are unremarkable. The liver demonstrates a patent hepatic and portal vein on CT angiogram. There may be suggestion of emphysema and cardiomegaly. There is prostatomegaly. Bowel does not show any transition zones and the appendix is normal, no evidence for acute diverticulitis. There is no evidence for hemodynamically significant celiac artery stenosis. There is mildly non-hemodynamically significant stenosis in the SMA origin. There were diffuse atherosclerotic changes in the aorta. IMPRESSION AND PLAN: Mr. Zayas reports an approximate 3-week history of abdominal pain, sometimes 8/10, intermittent but can occur for prolonged periods of time. This does not awaken him from sleep. He has not had weight loss with this. He does use occasional Aleve for pain associated with prior ankle fracture, but this is not chronically used. He is on a baby aspirin. The patient has never had a prior colonoscopy. Based on the study, there is no evidence for obvious portal vein thrombosis. In addition, there is no description on the CT angiography of bowel wall edema. It may be reasonable for the patient to have a mesenteric portal Doppler to exclude any evidence of SMV thrombosis or abnormalities and portal vein flow, although CT is not suggestive of the latter process. In addition, I believe an upper endoscopy is reasonable given that he does use NSAIDs intermittently. He has been on a PPI for at least a couple years. At some point, a colonoscopy is reasonable; however, this will need to be coordinated with his Eliquis use. For tomorrow's sake, I believe the diagnostic only upper endoscopy is reasonable and will arrange this for tomorrow afternoon. Would monitor abdominal exam for any acute changes and at that point repeating either a CT imaging and a lactate level may be helpful. All questions answered for the patient and his family. Thank you for allowing me to participate in this patient's care.
--- NOTE | 2017-03-26 18:48 | DIAGNOSTIC IMAGING REPORT ---
DUPLEX PORTAL HEPATIC VEINS HISTORY: 82 years-old Male abd pain acute generalized abdominal pain COMPARISON: CT abdomen 03/20/2017 TECHNIQUE: Multiple real-time sonographic images of the hepatic vessels were obtained assessing grayscale appearance, color and spectral flow FINDINGS: There is normal appearing phasic waveforms within the hepatic veins. Splenic vein is patent. Normal phasic waveforms are seen within the hepatic artery. There is hepatopedal flow within the portal veins. Normal phasic waveforms are seen within the proximal and distal IVC and also within the superior mesenteric vein. Peak systolic velocity of the superior mesenteric vein measures 24 cm/s. IMPRESSION: Normal spectral analysis of the hepatic vasculature. The above report was generated using voice recognition software. It may contain grammatical, syntax or spelling errors. Electronically signed by: Severino Guevara M.D. 03/26/2017 6:47 PM Dictated Date/Time: 03/26/2017 6:44 PM
[2017-03-27] MEDS: MoRPHine SULFATE 4 MG/ML 1 ML CARP\\VIAL IV PRN ×3 (00:49→19:07)
[2017-03-27] MEDS: NSS + 20MEQ KCL 1000ML 1,000 ML IV SCH ×4 (00:49→21:38)
[2017-03-27 05:42] LABS: MEAN CELL VOLUME 88.6 fL (80-100); MEAN CORPUSCULAR HGB CONC 33.9 g/dl (32-36); PLATELET COUNT 143 K/uL (130-400); RED BLOOD COUNT 4.63 M/uL (4.7-6.1); WHITE BLOOD COUNT 14.51 K/uL (4.8-10.8)
[2017-03-27] MEDS: ASPIRIN 81 MG ECTAB PO SCH (06:19)
[2017-03-27 06:20] LABS: CALCIUM 7.9 mg/dl (8.5-10.1); CREATININE 1.41 mg/dl (0.60-1.40)
[2017-03-27] MEDS: AMLODIPINE BESYLATE 5 MG TAB PO SCH (06:20)
[2017-03-27] MEDS: ATORVASTATIN 40 MG TAB PO SCH (06:20)
[2017-03-27] MEDS: POLYETHYLENE (MIRALAX) 17 GM PACK PO SCH (06:20)
[2017-03-27] MEDS: MAGNESIUM OXIDE 400 MG TAB PO SCH (06:20)
[2017-03-27] MEDS: APIXABAN 2.5 MG TAB PO SCH (06:20)
[2017-03-27] MEDS: VITAMIN B COMPLEX TAB PO SCH (06:22)
[2017-03-27] MEDS: LISINOPRIL 10 MG TAB PO SCH (06:22)
[2017-03-27] MEDS: PANTOprazole INJ 40 MG in SYRINGE 0 ML IV SCH ×2 (08:41→20:42)
[2017-03-27] MEDS: FAMOTIDINE IV INJ 20 MG in SYRINGE 3 ML IV SCH ×2 (11:57→23:00)
--- NOTE | 2017-03-27 15:16 | Progress Note ---
Subjective Date of Service: Mar 27, 2017. Subjective Pt evaluation today including: conversation w/ patient, physical exam, chart review, lab review, review of studies, review of inpatient medication list Reports ongoing abd pain, unchanges from yesterday No acute events overnight Prepped for endoscopy today Problem List Medical Problems: (1) Abdominal pain Status: Acute (2) Atrial fibrillation Status: Acute (3) Elevated white blood cell count Status: Acute (4) New onset atrial fibrillation Status: Acute (5) Substernal chest pain Status: Acute Review of Systems Constitutional: No fever, No chills, No sweats, No weight loss Eyes: No worsening of vision, No eye pain, No redness, No discharge Respiratory: No cough, No sputum, No wheezing, No shortness of breath, No dyspnea on exertion Cardiac: No chest pain, No orthopnea, No PND, No edema, No claudication Abdomen: + pain, No nausea, No vomiting, No diarrhea, No constipation Musculoskeletal: No joint pain, No muscle pain, No swelling, No calf pain Male : No dysuria, No urinary frequency, No incontinence, No slowing stream Neurologic: No memory loss, No paralysis, No weakness, No numbness/tingling Psychiatric: No depression symptoms, No anhedonism, No anxiety, No insomnia Endo: No fatigue, No excessive thirst Skin: No rash, No itch Objective Vital Signs Date Time Temp Pulse Resp B/P (MAP) Pulse Ox O2 Delivery O2 Flow Rate FiO2 03/27/17 14:12 37.2 77 20 150/70 (96) 97 Room Air 03/27/17 09:51 Room Air 03/27/17 04:00 Room Air 03/27/17 00:00 Room Air 03/26/17 23:33 37.1 59 18 122/74 (90) 92 Room Air 03/26/17 20:00 Room Air 03/26/17 19:37 36.7 56 18 128/77 (94) 91 Room Air 03/26/17 16:00 Room Air 03/26/17 15:26 36.6 83 18 117/66 (83) 95 Room Air Physical Exam General Appearance: WD/WN, no apparent distress Neck: supple, no adenopathy, thyroid normal, no JVD Respiratory/Chest: chest non-tender, lungs clear, normal breath sounds, no respiratory distress Cardiovascular: regular rate, rhythm, no edema, no gallop, no JVD Abdomen: normal bowel sounds, soft, no organomegaly, + tenderness Extremities: normal range of motion, non-tender, normal inspection, no pedal edema Neurologic/Psychiatric: no motor/sensory deficits, alert, normal mood/affect, oriented x 3 Laboratory Results Last 24 Hours Test 03/27/17 05:16 White Blood Count 14.51 K/uL Red Blood Count 4.63 M/uL Hemoglobin 13.9 g/dL Hematocrit 41.0 % Mean Corpuscular Volume 88.6 fL Mean Corpuscular Hemoglobin 30.0 pg Mean Corpuscular Hemoglobin Concent 33.9 g/dl RDW Standard Deviation 45.4 fL RDW Coefficient of Variation 14.0 % Platelet Count 143 K/uL Mean Platelet Volume 11.0 fL Sodium Level 137 mmol/L Potassium Level 5.0 mmol/L Chloride Level 107 mmol/L Carbon Dioxide Level 25 mmol/L Anion Gap 5.0 mmol/L Blood Urea Nitrogen 30 mg/dl Creatinine 1.41 mg/dl Est Creatinine Clear Calc Drug Dose 41.8 ml/min Estimated GFR () 54.1 Estimated GFR (Non- 46.7 BUN/Creatinine Ratio 21.0 Random Glucose 92 mg/dl Calcium Level 7.9 mg/dl Assessment and Plan This is an 82-year-old male, with a history of coronary disease and extensive peripheral arterial disease who presents with abdominal pain of unknown etiology. While clinical history and exam suggest ischemic colitis, labs and imaging are inconsistent with diagnosis at this time. The etiology is unclear at this time. Acute diffuse abdominal pain, etiology unknown: - Admitted to [facility] for cardiac monitoring - IV NSS + 20 mEq KCL @ 125 ml/hr, NPO for endoscopy 03/27 - GI consulted - Tylenol and Morphine 2-4 mg IV q4 hours PRN - Abdominal x-ray negative for acute findings - CTA on 03/20/17- no acute findings- stable from previous study - Bentyl PRN for abdominal cramping Constipation: - Dulcolax suppository x1 w/ small BM; give Milk and Molasses enema x1 today - MiraLAX regimen daily HTN- STABLE: Continue Amlodipine 5 mg daily and Lisinopril 10 mg daily Atrial fibrillation, CAD s/p CABG- follows w/ Dr. Rodas: - Continue Eliquis 2.5 mg BID, ASA 81 mg daily, Lipitor 80 mg daily, Atenolol 25 mg QAM and 50 mg afternoon, Nitro PRN - Negative dobutamine stress in 01/2017 - ECHO reviewed PAD: Continue ASA and Atorvastatin GERD: - Home doses of Protonix and Ranitidine at been held - IV Protonix and Famotidine DVT prophylaxis: Eliquis Code Status: LEVEL III, NO INTUBATION/MECH VENTILATION Dispo: From home- PT/OT and CM consulted
[2017-03-27] MEDS ORDERED: LIDOCAINE HCL 2% 2 ML VIAL (20MG/ML) ONE (15:24)
[2017-03-27] MEDS ORDERED: MIDAZOLAM HCL 1 MG/ML 2ML VIAL ONE (15:24)
[2017-03-27] MEDS ORDERED: PROPOFOL IV EMULSION 10 MG/ML 20 ML VIAL IV ONE (15:24)
--- NOTE | 2017-03-27 15:24 | History & Physical Bridge Note ---
H&P Re-Evaluation Bridge Note: I have examined the patient, reviewed the History & Physical and in the interval since the performance of the History & Physical I have noted the following changes of clinical significance: No changes noted
--- NOTE | 2017-03-27 16:06 | Anesthesiology Progress Note ---
Anesthesia Post Op Note Date & Time Mar 27, 2017 at 16:06 Vital Signs Pain Intensity: 0 Vital Signs Past 12 Hours Date Time Temp Pulse Resp B/P (MAP) Pulse Ox O2 Delivery O2 Flow Rate FiO2 03/27/17 16:02 68 18 144/89 (107) 96 Room Air 03/27/17 15:47 69 16 128/70 (89) 95 Mask 5 03/27/17 14:12 37.2 77 20 150/70 (96) 97 Room Air 03/27/17 09:51 Room Air Notes Mental Status: alert / awake / arousable, participated in evaluation Pt Amnestic to Procedure: Yes Nausea / Vomiting: adequately controlled Pain: adequately controlled Airway Patency, RR, SpO2: stable & adequate BP & HR: stable & adequate Hydration State: stable & adequate Anesthetic Complications: no major complications apparent
--- NOTE | 2017-03-27 17:13 | GI REPORT ---
Procedure Date: 03/27/2017 3:22 PM THIS REPORT HAS BEEN AMENDED Addendum Number: 1 Addendum Date: 03/27/2017 5:14:48 PM The indication provided in the original report is incorrect(iron deficiency anemai). The correct indication for this procedure is epigastric and generalized abdominal pain. Study performed on Eliquis and therefore no biopsies to be taken. Procedure: Upper GI endoscopy Indications: Unexplained iron deficiency anemia(No samples to be taken- pt on Eliquis) Medicines: Propofol per Anesthesia Complications: No immediate complications. Estimated blood loss: None. Estimated Blood Loss: Estimated blood loss was minimal. Estimated blood loss: none. Procedure: Pre-Anesthesia Assessment: - Prior to the procedure, a History and Physical was performed, and patient medications and allergies were reviewed. The patient's tolerance of previous anesthesia was also reviewed. The risks and benefits of the procedure and the sedation options and risks were discussed with the patient. All questions were answered, and informed consent was obtained. Prior Anticoagulants: The patient has taken no previous anticoagulant or antiplatelet agents. ASA Grade Assessment: III - A patient with severe systemic disease. After reviewing the risks and benefits, the patient was deemed in satisfactory condition to undergo the procedure. After obtaining informed consent, the endoscope was passed under direct vision. Throughout the procedure, the patient's blood pressure, pulse, and oxygen saturations were monitored continuously. The scope was introduced through the mouth, and advanced to the mid-jejunum. The upper GI endoscopy was accomplished without difficulty. The patient tolerated the procedure well. Findings: The examined esophagus was normal. Three non-bleeding cratered gastric ulcers with no stigmata of bleeding were found in the gastric antrum. The largest lesion was 7 mm in largest dimension. Retained gastric contents are not identified on this exam. Localized mild mucosal changes characterized by congestion, erythema and inflammation were found in the gastric antrum. The examined duodenum was normal. The cardia and gastric fundus were normal on retroflexion. Impression: - No specimens collected. Recommendation: - Discharge patient to home (ambulatory). - Advance diet as tolerated. - Use Prilosec (omeprazole) 40 mg PO BID for 4 months. - No aspirin, ibuprofen, naproxen, or other non-steroidal anti-inflammatory drugs. - No ibuprofen, naproxen, or other non-steroidal anti-inflammatory drugs. - Await pathology results. - Return to referring physician as previously scheduled. - [facility] patient to [facility]. - Advance diet as tolerated. - Use Protonix (pantoprazole) 40 mg PO BID for 4 months. - Repeat the upper endoscopy in 3 days to assess disease activity. COMMENT: Will need Eliquis held tonight, Heparin or Lovenox initiated for bridging and colon prep Thursday for EGD/Bx and colonoscopy on Thursday. - Perform an H. pylori stool antigen (HpSA) test tomorrow. MD Brian Bill MD 03/27/2017 5:13:09 PM This report has been signed electronically. Note Initiated On: 03/27/2017 3:22 PM I attest to the content of the Intraoperative Record and orders documented therein, exceptions below MD Brian Bill MD 03/27/2017 5:16:38 PM This report has been signed electronically.
[2017-03-27] MEDS ORDERED: NURSING VERBAL MED ORDER ONE ×3 (17:30→18:30)
[2017-03-27] MEDS ORDERED: HEPARIN IV LOW DOSE NO BOLUS STA (18:18)
[2017-03-27] MEDS: HEPARIN 25,000 UNIT/500ML D5W 500 ML IV PRN (19:40)
[2017-03-27 19:50] VITALS: BP 136/78; PULSE 71; TEMP 36.7; O2SAT 93
[2017-03-28] VITALS (7 sets, daily range): BP systolic 138–178; BP diastolic 76–91; PULSE 65–84; TEMP 36.7–38.9; O2SAT 91–93
[2017-03-28] MEDS: MoRPHine SULFATE 4 MG/ML 1 ML CARP\\VIAL IV PRN ×4 (01:57→23:43)
[2017-03-28 02:02] LABS: PARTIAL THROMBOPLASTIN RATIO 3.2
[2017-03-28] MEDS: NSS + 20MEQ KCL 1000ML 1,000 ML IV SCH ×3 (05:42→21:53)
[2017-03-28] MEDS: AMLODIPINE BESYLATE 5 MG TAB PO SCH (08:24)
[2017-03-28] MEDS: ATORVASTATIN 40 MG TAB PO SCH (08:24)
[2017-03-28] MEDS: ASPIRIN 81 MG ECTAB PO SCH (08:24)
[2017-03-28] MEDS: LISINOPRIL 10 MG TAB PO SCH (08:25)
[2017-03-28] MEDS: MAGNESIUM OXIDE 400 MG TAB PO SCH (08:25)
[2017-03-28] MEDS: VITAMIN B COMPLEX TAB PO SCH (08:25)
[2017-03-28] MEDS: PANTOprazole INJ 40 MG in SYRINGE 0 ML IV SCH ×2 (08:26→21:06)
[2017-03-28] MEDS: POLYETHYLENE (MIRALAX) 17 GM PACK PO SCH (08:28)
[2017-03-28] MEDS ORDERED: BISACODYL 10 MG SUPP PR PRN (09:15)
--- NOTE | 2017-03-28 09:42 | Progress Note ---
Subjective Date of Service: Mar 28, 2017. Subjective Pt evaluation today including: conversation w/ patient, physical exam, chart review, lab review, review of studies, review of inpatient medication list Problem List Medical Problems: (1) Abdominal pain Status: Acute (2) Atrial fibrillation Status: Acute (3) Elevated white blood cell count Status: Acute (4) New onset atrial fibrillation Status: Acute (5) Substernal chest pain Status: Acute Review of Systems Constitutional: No see HPI, No fever, No chills, No sweats, No weight loss, No weakness, No fatigue, No problem reported Eyes: No see HPI, No worsening of vision, No eye pain, No redness, No discharge , No diplopia, No problem reported ENT: No see HPI, No hearing loss, No unusual epistaxis, No nasal symptoms, No sore throat, No tinnitus, No dental problems, No trouble swallowing, No problem reported Respiratory: No see HPI, No cough, No sputum, No wheezing, No shortness of breath, No dyspnea on exertion, No dyspnea at rest, No hemoptysis, No problem reported Cardiac: No see HPI, No chest pain, No orthopnea, No PND, No edema, No claudication, No palpitations, No problem reported Abdomen: + pain, + constipation, No see HPI, No nausea, No vomiting, No diarrhea, No GI bleeding, No problem reported Musculoskeletal: No see HPI, No joint pain, No muscle pain, No swelling, No calf pain, No problem reported Male : No see HPI, No dysuria, No urinary frequency, No incontinence, No nocturia more than once/night, No slowing stream, No hematuria, No sexual dysfunction, No problem reported Neurologic: No see HPI, No memory loss, No paralysis, No weakness, No numbness/ tingling, No vertigo, No balance problems, No problem reported Psychiatric: No see HPI, No depression symptoms, No anhedonism, No anxiety, No insomnia, No substance abuse, No problem reported Heme: No see HPI, No abnormal bleeding/bruising, No clotting problems, No swollen lymph nodes, No night sweats, No problem reported Endo: No see HPI, No fatigue, No excessive thirst, No excessive urination, No problem reported Skin: No see HPI, No rash, No itch, No new/changing skin lesions, No color change, No bleeding, No problem reported Medications Current Inpatient Medications Medications (Trade) Dose Ordered Sig/Katarina Route Start Time Stop Time Status Last Admin Dose Admin Potassium Chloride/Sodium Chloride 1,000 ml @ 125 mls/hr Q8H IV 03/25/17 23:00 04/24/17 22:59 03/28/17 05:42 125 MLS/HR Acetaminophen (Tylenol Tab) 650 mg Q4H PRN PO 03/25/17 21:30 04/24/17 21:29 Al Hydrox/Mg Hydrox/Simethicone (Maalox Max Susp) 15 ml Q4H PRN PO 03/25/17 21:30 04/24/17 21:29 Magnesium Hydroxide (Milk Of Magnesia Susp) 30 ml Q12H PRN PO 03/25/17 21:30 04/24/17 21:29 Ondansetron HCl (Zofran Inj) 4 mg Q6H PRN IV 03/25/17 21:30 04/24/17 21:29 Polyethylene (Miralax Powder Packet) 17 gm DAILY PRN PO 03/25/17 21:30 04/24/17 21:29 Amlodipine Besylate (Norvasc Tab) 5 mg DAILY PO 03/26/17 09:00 04/25/17 08:59 03/28/17 08:24 5 MG Apixaban (Eliquis Tab) 2.5 mg BID PO 03/26/17 09:00 04/25/17 08:59 Future Hold 03/26/17 20:43 2.5 MG Aspirin (Ecotrin Tab) 81 mg DAILY PO 03/26/17 09:00 04/25/17 08:59 03/28/17 08:24 81 MG Atenolol (Tenormin Tab) 50 mg QPM PO 03/26/17 21:00 04/25/17 20:59 03/27/17 20:42 50 MG Atenolol (Tenormin Tab) 25 mg QAM PO 03/26/17 09:00 04/25/17 08:59 03/28/17 08:26 25 MG Atorvastatin Calcium (Lipitor Tab) 80 mg DAILY PO 03/26/17 09:00 04/25/17 08:59 03/28/17 08:24 80 MG Lisinopril (Zestril Tab) 10 mg DAILY PO 03/26/17 09:00 04/25/17 08:59 03/28/17 08:25 10 MG Nitroglycerin (Nitrostat Tab) 0.4 mg UD PRN UT 03/25/17 21:30 04/24/17 21:29 Zolpidem Tartrate (Ambien Tab) 10 mg HS PRN PO 03/25/17 21:30 04/24/17 21:29 Vitamin B Complex (Vitamin B Complex) 1 tab DAILY PO 03/26/17 09:00 04/25/17 08:59 03/28/17 08:25 1 TAB Magnesium Oxide (Mag-Ox Tab) 400 mg DAILY PO 03/26/17 09:00 04/25/17 08:59 03/28/17 08:25 400 MG Miscellaneous Information (Order Awaiting Action) 1 ea QS N/A 03/26/17 00:00 04/25/17 00:00 Pantoprazole Sodium 40 mg/ Syringe 10 ml @ 5 mls/min DAILY@ IV 03/26/17 09:00 04/25/17 08:59 03/28/17 08:26 5 MLS/MIN Polyethylene (Miralax Powder Packet) 17 gm DAILY PO 03/26/17 09:00 04/25/17 08:59 03/28/17 08:28 17 GM Morphine Sulfate (MoRPHine SULFATE INJ) 4 mg Q4H PRN IV 03/25/17 22:00 04/08/17 21:59 03/28/17 08:24 4 MG Morphine Sulfate (MoRPHine SULFATE INJ) 2 mg Q4H PRN IV 03/25/17 22:00 04/08/17 21:59 Famotidine 20 mg/ Syringe 5 ml @ 2.5 mls/min Q12H IV 03/25/17 23:00 04/24/17 22:59 03/27/17 23:00 2.5 MLS/MIN Dicyclomine HCl (Bentyl Tab) 20 mg Q6H PRN PO 03/26/17 11:15 04/25/17 11:14 Heparin Sodium/ Dextrose 500 ml @ 25 mls/hr Q20H PRN IV 03/27/17 19:00 04/26/17 18:59 03/27/17 19:40 28 MLS/HR Objective Vital Signs Date Time Temp Pulse Resp B/P (MAP) Pulse Ox O2 Delivery O2 Flow Rate FiO2 03/28/17 08:18 36.8 78 18 178/84 (115) 91 03/28/17 04:55 36.7 71 17 154/91 (112) 93 Room Air 03/28/17 04:07 Room Air 03/28/17 00:22 Room Air 03/28/17 00:18 37.0 65 17 146/77 (100) 92 Room Air 03/27/17 20:11 Room Air 03/27/17 19:50 36.7 71 17 136/78 (97) 93 Room Air 03/27/17 17:51 Room Air 03/27/17 16:17 65 18 152/77 (102) 94 Room Air 03/27/17 16:02 68 18 144/89 (107) 96 Room Air 03/27/17 15:47 69 16 128/70 (89) 95 Mask 5 03/27/17 14:12 37.2 77 20 150/70 (96) 97 Room Air 03/27/17 09:51 Room Air Physical Exam General Appearance: WD/WN, no apparent distress Eyes: normal inspection, EOMI ENT: normal ENT inspection, hearing grossly normal Neck: supple, no adenopathy, thyroid normal Respiratory/Chest: chest non-tender, lungs clear, normal breath sounds, no respiratory distress, no accessory muscle use Cardiovascular: regular rate, rhythm, no edema, no gallop, no JVD, no murmur Abdomen: normal bowel sounds, no organomegaly, no pulsatile mass, + distended, + tenderness Extremities: normal range of motion, non-tender, normal inspection, no pedal edema, no calf tenderness Neurologic/Psychiatric: sod cutter II-XII nml as tested, no motor/sensory deficits, alert, normal mood/affect, oriented x 3 Skin: normal color, warm/dry, no rash Laboratory Results Last 24 Hours Test 03/28/17 01:31 03/28/17 04:44 03/28/17 09:00 Activated Partial Thromboplast Time 84.4 SECONDS Partial Thromboplastin Ratio 3.2 Assessment and Plan 82 years old man with complicated past medical history of CAD status post CABG , aortic aneurysm status posts, atrial fibrillation on chronic anticoagulation and hypertension. Presented to the ED with generalized lower abdominal pain for further evaluation and management. Acute lower abdominal pain with unknown etiology Constipation Acute kidney injury on chronic kidney disease stage II to 3, multifactorial including recent contrast exposure Coronary artery disease status post CABG in 1985, cardiac catheterization and stenting in 2004 Abdominal aortic aneurysm status post bypass surgery in 2008 Hypertension Peripheral arterial disease GERD Atrial fibrillation Dyslipidemia Plan Status post EGD, showed erythema and congestion and gastric antrum with 3 nonbleeding gastric ulcers Continue pain management CT angiogram abdomen on March 20 was reviewed, multiple arterial stenosis but nothing is new and does not justify the persistent pain Despite of the gastric ulcers, unfortunately we'll have to continue aspirin giving his significant vascular disease Continue Pepcid/Protonix Continue heparin drip for now and plan to switch back to a liquids prior to discharge Continue stool softener, will add bisacodyl suppository and Fleet enema if needed Continue IV fluid hydration GI consult appreciated Monitor renal function Continue amlodipine Hold lisinopril 2 days, until renal function improves Clinically suspected obstructive sleep apnea, and instructed to have sleep study as an outpatient Continue Lipitor/atenolol Code Status: LEVEL III, NO INTUBATION/MECH VENTILATION CT angiogram abdomen obtained on March 20 report attached below 1. Overall, no significant change compared to the prior study. No bowel wall thickening or obstruction. 2. 50% stenosis of the proximal right renal artery 3. Postsurgical changes of a left renal artery reimplantation. Stable 50% stenosis proximally. 4. Postsurgical changes of aorto biiliac grafting. 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 5. 40% diameter narrowing at the level of each distal iliac graft/common iliac artery anastomosis 6. 40% diameter narrowing of the left common femoral artery.
[2017-03-28 09:51] LABS: HEMATOCRIT 40.9 % (42-52); MEAN CORPUSCULAR HEMOGLOBIN 29.1 pg (25-34); MEAN CORPUSCULAR HGB CONC 33.5 g/dl (32-36); MEAN PLATELET VOLUME 11.1 fL (7.4-10.4); PLATELET COUNT 194 K/uL (130-400); WHITE BLOOD COUNT 14.06 K/uL (4.8-10.8)
[2017-03-28 10:07] LABS: PARTIAL THROMBOPLASTIN RATIO 2.3
[2017-03-28 10:29] LABS: BUN/CREATININE RATIO 21.5 (10-20); CREATININE 1.17 mg/dl (0.60-1.40); POTASSIUM 4.3 mmol/L (3.5-5.1)
[2017-03-28] MEDS: FAMOTIDINE IV INJ 20 MG in SYRINGE 3 ML IV SCH ×2 (11:14→22:52)
[2017-03-28 12:18] LABS: ESTIMATED AVERAGE GLUCOSE 111 mg/dl; HA1C FLAG Normal (Normal)
[2017-03-28 12:27] LABS: CHOLESTEROL/HDL RATIO 4.4
--- NOTE | 2017-03-28 12:47 | GASTROENTEROLOGY PROGRESS NOTE ---
DATE: 03/28/2017 DATE: 03/28/2017 SUBJECTIVE: The patient was seen and examined. He is doing well overall and tolerated last evening's meals and this morning breakfast reasonably well. He continues to experience a chronic abdominal pain, although perhaps it is slightly less intense than it had been over the past few days. There is no nausea or vomiting. The pain is described as constant. Unclear if made better or worse with meals and is present when he awakens and throughout the day and at bedtime. It may occasionally awaken him from sleep. Upper endoscopy on Thursday revealed multiple antral ulcers with thickened folds of uncertain etiology. Biopsies could not be taken as the patient was actively on Eliquis for recently diagnosed atrial fibrillation. The patient's Eliquis was held today with start of heparin drip. MEDICATIONS: Include Dulcolax, heparin drip, atenolol, dicyclomine, amlodipine, aspirin, atenolol, atorvastatin, famotidine, pantoprazole IV, morphine as needed, Zofran and Ambien p.r.n. REVIEW OF SYSTEMS: Otherwise noncontributory based on 13-point exam. LABORATORY STUDIES: Today, white count is although elevated, is drifting down and is currently 14. Hemoglobin is stable at 13.7, platelets 194,000. BUN and creatinine are 25 and 1.1, which is resolving. Potassium is 4.3. Hemoglobin A1c 5.5. Urinalysis from 03/25/2017 without evidence of infection. PHYSICAL EXAMINATION: VITAL SIGNS: Today afebrile 36.7, blood pressure 155/83, 91% on room air, her heart rate 84, respirations 20. GENERAL: The patient is awake, alert and oriented x3. Sclerae are anicteric, conjunctiva moist. HEAD, EYES, EARS, NOSE, AND THROAT: Oral mucosa moist. HEART: Normal S1, S2. LUNGS: Clear to auscultation. ABDOMEN: Soft, flat, nontender, nondistended. Good bowel sounds. EXTREMITIES: Without clubbing, cyanosis or edema. RECTAL EXAMINATION: Deferred. The patient is sitting comfortably at the bedside eating lunch. IMPRESSION AND PLAN: Multiple antral ulcers with thickened antral folds. Will need upper endoscopy for biopsy. Will plan on bowel prep tomorrow with a clear liquid diet throughout the day and anticipate upper endoscopy with biopsy and colonoscopy for abdominal pain (patient has never had a prior colonoscopy exam and has 3 children with polyps). There has been no chronic weight loss or description of melena or bright red blood per rectum. Further recommendations to follow once procedures are completed. All questions answered for the patient.
[2017-03-28] MEDS ORDERED: NURSING VERBAL MED ORDER ONE (15:00)
[2017-03-28] MEDS ORDERED: SOD PHOSPHATE/SOD BIPHOSPHATE ENEMA 132 ML BTL PR ONE (15:15)
[2017-03-28] MEDS: HEPARIN 25,000 UNIT/500ML D5W 500 ML IV PRN (17:04)
[2017-03-28] MEDS ORDERED: VANCOMYCIN INJ 1,000 MG in SODIUM CHLORIDE 0.9% 250ML 250 ML IV STA (22:57)
--- NOTE | 2017-03-28 23:00 | Progress Note ---
Progress Note Date of Service Mar 28, 2017. Progress Note febrile episode bmp, cbc, blood cultures, UA and cxr ordered zosyn and vanc empirically
[2017-03-28] MEDS ORDERED: VANCOMYCIN CONSULT ACTIVE PRN (23:15)
[2017-03-28] MEDS ORDERED: VANCOMYCIN INJ 2,000 MG in SODIUM CHLORIDE 0.9% 500ML 500 ML IV SCH (23:15)
[2017-03-28] MEDS ORDERED: PIPERACILL/TAZOBAC CONSULT ACTIVE PRN (23:15)
[2017-03-28 23:44] LABS: BASO % 0.1 %; BASO ABS # 0.01 K/uL (0-0.2); COMPLETE YES; EOS % 0.2 %; HEMATOCRIT 41.1 % (42-52); IG% 0.2 %; LYMPH % 6.6 %; LYMPH ABS # 0.83 K/uL (1.2-3.4); MEAN CELL VOLUME 86.2 fL (80-100); MEAN CORPUSCULAR HEMOGLOBIN 28.3 pg (25-34); MEAN CORPUSCULAR HGB CONC 32.8 g/dl (32-36); MONO % 12.6 %; NEUT % 80.3 %; PLATELET COUNT 232 K/uL (130-400); RED BLOOD COUNT 4.77 M/uL (4.7-6.1); WHITE BLOOD COUNT 12.61 K/uL (4.8-10.8)
[2017-03-28 23:48] LABS: URINE APPEARANCE CLEAR (CLEAR); URINE BILIRUBIN NEG (NEG); URINE COLOR YELLOW; URINE NITRITE NEG (NEG); URINE SPECIFIC GRAVITY 1.021 (1.000-1.030); UROBILINOGEN POS (NEG); ZZUR CULT IF INDIC CLEAN CATCH NO
[2017-03-28 23:59] LABS: MANUAL MICROSCOPIC REQUIRED? NO; REVIEW REQ? NO
[2017-03-29] VITALS (7 sets, daily range): BP systolic 136–154; BP diastolic 73–83; PULSE 66–79; TEMP 36.8–37.5; O2SAT 90–94
[2017-03-29] MEDS ORDERED: PIPERACILL/TAZOBAC IV 3.375 GM in DEXTROSE 5% 100ML IV ONE ×2
[2017-03-29 00:09] LABS: BUN/CREATININE RATIO 21.6 (10-20); CALCIUM 7.8 mg/dl (8.5-10.1); CREATININE 1.15 mg/dl (0.60-1.40); POTASSIUM 4.4 mmol/L (3.5-5.1)
[2017-03-29 00:34] LABS: INFLUENZA A PCR Neg for Influ A (NEG); INFLUENZA B PCR Neg for Influ B (NEG)
[2017-03-29] MEDS: PIPERACILL/TAZOBAC IV 3.375 GM in DEXTROSE 5% 100ML IV SCH ×3 (04:00→19:29)
[2017-03-29 05:05] LABS: BASO % 0.2 %; BASO ABS # 0.02 K/uL (0-0.2); COMPLETE YES; EOS % 0.3 %; HEMATOCRIT 37.4 % (42-52); IG% 0.3 %; LYMPH % 4.5 %; LYMPH ABS # 0.52 K/uL (1.2-3.4); MEAN CELL VOLUME 87.4 fL (80-100); MEAN CORPUSCULAR HEMOGLOBIN 29.2 pg (25-34); MEAN CORPUSCULAR HGB CONC 33.4 g/dl (32-36); MEAN PLATELET VOLUME 10.2 fL (7.4-10.4); MONO % 16.6 %; NEUT % 78.1 %; PLATELET COUNT 198 K/uL (130-400); RED BLOOD COUNT 4.28 M/uL (4.7-6.1); WHITE BLOOD COUNT 11.64 K/uL (4.8-10.8)
[2017-03-29 05:24] LABS: CREATININE 1.16 mg/dl (0.60-1.40); PARTIAL THROMBOPLASTIN RATIO 2.8
[2017-03-29 05:25] LABS: BUN/CREATININE RATIO 20.3 (10-20); CALCIUM 7.7 mg/dl (8.5-10.1); POTASSIUM 4.5 mmol/L (3.5-5.1)
[2017-03-29 05:27] LABS: ALB/GLOB RATIO 0.6 (0.9-2)
[2017-03-29] MEDS: MoRPHine SULFATE 4 MG/ML 1 ML CARP\\VIAL IV PRN ×4 (06:04→22:42)
[2017-03-29] MEDS: MoRPHine SULFATE 2 MG/ML CARP IV PRN ×2 (08:14→13:10)
[2017-03-29] MEDS: PANTOprazole INJ 40 MG in SYRINGE 0 ML IV SCH ×2 (08:15→19:28)
[2017-03-29] MEDS: ATORVASTATIN 40 MG TAB PO SCH (08:16)
[2017-03-29] MEDS: AMLODIPINE BESYLATE 5 MG TAB PO SCH (08:16)
[2017-03-29] MEDS: MAGNESIUM OXIDE 400 MG TAB PO SCH (08:16)
--- NOTE | 2017-03-29 08:16 | Pharmacy Progress Note ---
Pharmacy Abx Initial Consult Date of Service Mar 29, 2017. Pharmacy Dosing Scope Date of Consult: 03/29/17 (overnight) Consultation requested by: Dr. Juárez Pharmacy is consulted to initiate Vancomycin/Zosyn IV dosing therapy, order appropriate labs and adjust drug dose/frequency. Subjective The patient is a 82 year old male admitted on Mar 25, 2017 at 21:22 with lower abdominal pain, now s/p EGD which showed 3 nonbleeding ulcers. Objective Height (Feet): 5 Height (Inches): 9.00 Weight (Kilograms): 90.100 Vital Signs (Past 12Hrs) Vital Signs Past 12 Hours Date Time Temp Pulse Resp B/P (MAP) Pulse Ox O2 Delivery O2 Flow Rate FiO2 03/29/17 07:43 37.2 73 16 136/83 (100) 91 Room Air 03/29/17 06:09 94 Room Air 03/29/17 04:40 36.8 66 18 154/82 (106) 92 Room Air 03/29/17 04:14 Room Air 03/29/17 01:31 37.5 03/29/17 00:33 Room Air 03/28/17 22:54 38.9 72 20 144/85 (104) 91 Room Air 03/28/17 20:25 Room Air Lab Results (24Hrs) Laboratory Tests (24 Hours) Test 03/28/17 11:36 03/29/17 04:58 Procalcitonin 0.38 ng/ml (0-0.5) Lactic Acid Level 1.0 mmol/L (0.4-2.0) White Blood Count 11.64 K/uL (4.8-10.8) H Red Blood Count 4.28 M/uL (4.7-6.1) L Hemoglobin 12.5 g/dL (14.0-18.0) L Hematocrit 37.4 % (42-52) L Mean Corpuscular Volume 87.4 fL (80-100) Mean Corpuscular Hemoglobin 29.2 pg (25-34) Mean Corpuscular Hemoglobin Concent 33.4 g/dl (32-36) Platelet Count 198 K/uL (130-400) Mean Platelet Volume 10.2 fL (7.4-10.4) Neutrophils (%) (Auto) 78.1 % Lymphocytes (%) (Auto) 4.5 % Monocytes (%) (Auto) 16.6 % Eosinophils (%) (Auto) 0.3 % Basophils (%) (Auto) 0.2 % Neutrophils # (Auto) 9.11 K/uL (1.4-6.5) H Lymphocytes # (Auto) 0.52 K/uL (1.2-3.4) L Monocytes # (Auto) 1.93 K/uL (0.11-0.59) H Eosinophils # (Auto) 0.03 K/uL (0-0.5) Basophils # (Auto) 0.02 K/uL (0-0.2) Micro Results Date/Time Source Procedure Growth Status 03/28/17 23:27 Blood Blood Culture Pending Received 03/28/17 23:25 Blood Blood Culture Pending Received Risk Factors for Resistance * Current hospitalization > 5 days Assessment & Plan Assessment 82 year old male initiated on Vancomycin/Zosyn IV overnight for febrile episode X 1. Blood cultures pending. Plan Vancomycin IV * Loading dose: 2000 mg (23 mg/kg) * Maintenance dose: 1250 mg IV (14 mg/kg) every 16 hours * Goal trough level: 15-20 mcg/mL * A trough level has NOT been ordered due to antibiotic duration currently set for 48 hour stop date * IF ABX to continue past 03/31/17 - trough will be assessed Piperacillin/tazobactam * 3.375 g bolus administered over 30 minutes, then 3.375 g IV extended infusion every 8 hours for CrCl greater than 20 mL/min Pharmacy will continue to follow and will adjust dose/frequency as necessary. Thank you.
--- NOTE | 2017-03-29 08:16 | DIAGNOSTIC IMAGING REPORT ---
SINGLE VIEW CHEST CLINICAL HISTORY: Fever. FINDINGS: An AP, portable, upright chest radiograph is compared to study dated 03/25/2017. The examination is degraded by portable technique and apical lordotic positioning. The patient is status post midline sternotomy. The heart is enlarged and there is atherosclerotic calcification of the thoracic aorta. Mild pulmonary vascular congestion is observed. Trace pleural effusions are suspected. There is bibasilar atelectasis. More focal consolidative change is seen at the left lung base. No pneumothorax is seen. The skeletal structures are osteopenic. The bony thorax is grossly intact. IMPRESSION: 1. Cardiomegaly with mild pulmonary vascular congestion. 2. Suspect trace pleural effusions. 3. More focal airspace consolidation is suggested at the left lung base. Correlate clinically for evidence of pneumonia. Radiographic follow-up to resolution is recommended. Electronically signed by: Matty Gaston M.D. 03/29/2017 8:14 AM Dictated Date/Time: 03/29/2017 8:13 AM
[2017-03-29] MEDS: ASPIRIN 81 MG ECTAB PO SCH (08:17)
[2017-03-29] MEDS: VITAMIN B COMPLEX TAB PO SCH (08:17)
[2017-03-29] MEDS: POLYETHYLENE (MIRALAX) 17 GM PACK PO SCH (08:18)
[2017-03-29] MEDS ORDERED: PIPERACILL/TAZOBAC IV 3.375 GM in DEXTROSE 5% 100ML 100 ML IV SCH (09:00)
[2017-03-29] MEDS: NSS + 20MEQ KCL 1000ML 1,000 ML IV SCH (09:42)
--- NOTE | 2017-03-29 12:03 | GASTROENTEROLOGY PROGRESS NOTE ---
DATE: 03/29/2017 HISTORY OF PRESENT ILLNESS: The patient examined events of past 24 hours reviewed. The patient had a febrile event overnight with a temperature of 38.9 at 11:00 p.m. Thursday night. The patient did not have chills. This subsequently resolved and was normal at 1:30 a.m. this morning. The patient underwent blood cultures, chest x-ray. The patient was also started on empiric vancomycin and Zosyn. The patient denies any diarrhea, had a formed brown bowel movement without evidence of melena or bright red blood per rectum. The patient continues to experience diffuse abdominal pain, perhaps slightly more left side than on the right. There is no rebound or guarding. He puts an intensity level of 5/10 at the present time. Food does not bothersome the patient, but seems to began to develop one hour after the meal. His chest x-ray last evening suggests a more focal airspace consolidation of the left lung base with correlation of pneumonia recommended. There was trace pleural effusions, bibasilar atelectasis with osteopenic bony structure, but no other abnormalities other than cardiomegaly. MEDICATIONS: Reviewed and are unchanged except for the antibiotics above. He is on heparin drip. He also is on Tenormin, dicyclomine, amlodipine, aspirin, Lipitor, pantoprazole 40 mg daily. He is also on famotidine. REVIEW OF SYSTEMS: Otherwise noncontributory based on 13-point exam except for mentioned above. There is no hematemesis, coffee-ground emesis, nausea, vomiting or dysphagia. PHYSICAL EXAMINATION: VITAL SIGNS: The patient currently is afebrile, 37.2, blood pressure 136/83, 91% on room air, respirations are 16. The patient did have shortness of breath that lasted about 5 minutes last night that was nonexertional. He is currently without shortness of breath or dyspnea on exertion. HEENT: Sclerae anicteric. Conjunctivae moist. Oral mucosa moist. HEART: Normal S1, S2. LUNGS: Clear to auscultation. ABDOMEN: Soft, mildly tender diffusely without rebound or guarding. There is no focal tenderness. There is midline incision that is well healed. EXTREMITIES: Without clubbing, cyanosis or edema. RECTAL: Deferred. IMPRESSION AND PLAN: The patient with a febrile illness, brief episode of shortness of breath that was at rest that required the patient to sit up late last evening. Blood cultures are pending. The patient is currently on Zosyn and vancomycin. Source of the acute events last evening are unclear. This may reflect either an early pneumonia. The patient is on heparin and has been on Eliquis; therefore pulmonary embolism is less likely, but may need to be excluded certainly if these symptoms persist. At the present time, the patient is stable and I believe it is reasonable to proceed with EGD and colonoscopy for tomorrow with bowel prep today, clear liquid diet today and heparin to be turned off 6 hours before the procedure tomorrow. However, I defer this plan to the primary team if there is any cardiopulmonary workup that may need to be instituted. I have tentatively written for these orders including the bowel prep and procedure orders for tomorrow afternoon. We will make the patient clear liquids today and n.p.o. after midnight except for meds tomorrow. All questions answered. Please contact me if you have any questions regarding this plan of care.
[2017-03-29] MEDS: FAMOTIDINE IV INJ 20 MG in SYRINGE 3 ML IV SCH (13:10)
[2017-03-29] MEDS: HEPARIN 25,000 UNIT/500ML D5W 500 ML IV PRN (14:37)
[2017-03-29] MEDS ORDERED: HYDROmorphone INJ 1 MG/ML SYR IV PRN (15:30)
[2017-03-29] MEDS ORDERED: SODIUM CHLORIDE 0.9% 1000ML 1,000 ML IV SCH (15:30)
[2017-03-29] MEDS ORDERED: VANCOMYCIN INJ 1,250 MG in SODIUM CHLORIDE 0.9% 250ML 250 ML IV SCH (16:00)
[2017-03-29] MEDS ORDERED: OPTIRAY 320 IV PRN (18:00)
[2017-03-29] MEDS ORDERED: LAVAGE SOLUTION 4000ML PO SCH (18:00)
--- NOTE | 2017-03-29 18:46 | DIAGNOSTIC IMAGING REPORT ---
CT SCAN OF THE ABDOMEN AND PELVIS WITH IV CONTRAST CLINICAL HISTORY: Generalized abdominal pain. COMPARISON STUDY: Abdominal CT dated 03/20/2017. TECHNIQUE: Following the IV administration of 93 cc of Optiray 320, CT scan of the abdomen and pelvis is performed from the lung bases to the proximal femora. Images are reviewed in the axial, sagittal, and coronal planes. IV contrast was administered without complication. A dose lowering technique was utilized adhering to the principles of ALARA. The examination is degraded by motion artifact. CT DOSE: 686.70 mGy.cm FINDINGS: Lung bases: The heart is enlarged and without pericardial effusion. The coronary arteries are densely calcified. There are small pleural effusions, right larger than left with associated atelectasis. Segmental atelectasis is present in the left lower lobe. Intralobular septal thickening suggests congestive failure. There is a small hiatal hernia. Liver: The contrast-enhanced liver is enlarged, measuring 19.4 cm in length. The liver demonstrates heterogeneous attenuation. There is minimal central intrahepatic biliary ductal dilatation. The hepatic veins and portal veins are patent. Gallbladder: Surgically absent noting clips in the gallbladder fossa. Spleen: The spleen is enlarged, measuring 14.6 cm in length. Calcified granulomas are identified. There are large perfusion defects involving greater than 75% of the spleen consistent with a large splenic infarct. No perisplenic fluid is seen. Pancreas: Atrophic and grossly unremarkable. Adrenal glands: Unremarkable. Kidneys: The contrast enhanced kidneys are mildly atrophic and without hydronephrosis. The kidneys enhance symmetrically. Scattered subcentimeter cortical hypodensities likely represent cysts but are too small for definitive characterization. Abdominal vasculature: There is advanced atherosclerotic calcification and ectasia of the abdominal aorta. An aortobiiliac graft is noted. There is ectasia of the left common iliac artery which measures up to 1.5 cm. There is high-grade stenosis of the left renal artery. Thrombus is identified within the splenic artery seen on image #110. Bowel: The small bowel and colon are normal in course and caliber. The appendix is well-visualized and normal. Peritoneum: There is trace perihepatic ascites as well as a small volume of pelvic ascites. No intraperitoneal free air is seen. Lymphadenopathy: There are numerous shotty retroperitoneal lymph nodes, similar to previous. Pelvic viscera: The prostate gland is markedly enlarged and heterogeneous, measuring 5.7 cm transverse diameter. There is median lobe hypertrophy. The bladder wall is markedly thickened and trabeculated consistent with chronic caliber obstruction. Small bladder diverticula are noted. Skeletal structures: The skeletal structures are osteopenic. Mild lumbosacral spondylosis is observed. There is chronic deformity of the right ilium with evidence of previous bone graft donor site. No lytic or blastic lesions are seen. IMPRESSION: 1. Findings are consistent with a large splenic infarct (involving greater than 75% of the splenic parenchyma). This is new from 03/20/2017, and thrombus is seen within the distal splenic artery. 2. Cardiomegaly and small pleural effusions. Pleural effusions are new from previous. 3. There is a small volume of abdominopelvic ascites, new from previous. 4. Advanced atherosclerotic disease. 5. 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 6. Additional findings as above. Electronically signed by: Matty Gaston M.D. 03/29/2017 6:45 PM Dictated Date/Time: 03/29/2017 6:34 PM
[2017-03-29] MEDS ORDERED: Piperacill/Tazobac Consult (19:52)
[2017-03-29] MEDS ORDERED: Vancomycin Consult Active (19:53)
[2017-03-29] MEDS ORDERED: MRPIS2 IV (19:53)
--- NOTE | 2017-03-29 19:57 | Discharge Instructions ---
Discharge Instructions Date of Service Mar 29, 2017. Admission Reason for Admission: Abdominal Pain, Peripheral Arterial Disease Discharge Discharge Diagnosis / Problem: Acute large spleenic infarct Discharge Goals Goal(s): Decrease discomfort, Increase independence Activity Recommendations Activity Limitations: resume your previous activity Driving or Machine Use: no limitations . Current Hospital Diet Patient's current hospital diet: Low Fat Diet, Clear Liquid Diet Discharge Diet Recommended Diet: N/A Procedures Procedures Performed: EGD Pending Studies Studies pending at discharge: yes List of pending studies: stool for H pylori also needs repeat EGD at some point and biopsies from stomach Laboratory Results Hemoglobin A1c Test 03/28/17 11:36 Range/Units Estimated Average Glucose 111 mg/dl Hemoglobin A1c 5.5 4.5-5.6 % Lipid Panel Test 03/29/17 04:58 Range/Units Triglycerides Level 83 0-150 mg/dl Cholesterol Level 80 0-200 mg/dl HDL Cholesterol 20 mg/dl Cholesterol/HDL Ratio 4.0 LDL Cholesterol, Calculated 43 mg/dl Medical Emergencies . Who to Call and When: Medical Emergencies: If at any time you feel your situation is an emergency, please call 911 immediately. . Non-Emergent Contact Non-Emergency issues call your: Primary Care Provider . . "Provider Documentation" section prepared by Giovanni Rose. . VTE Core Measure Inpt VTE Proph given/why not?: Other Anticoagulation (Apixaban)
--- NOTE | 2017-03-29 20:20 | Discharge Summary ---
Discharge Summary Date of Service Mar 29, 2017. 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, multifactorial including recent contrast exposure Coronary artery disease status post CABG in 1985, cardiac catheterization and stenting in 2004 Abdominal aortic aneurysm status post bypass surgery in 2008 Hypertension Peripheral arterial disease GERD Atrial fibrillation Dyslipidemia Immunizations: Have You Had Influenza Vaccine: N/A History of Tetanus Vaccine?: Unknown History of Pneumococcal: Yes History of Hepatitis B Vaccine: Unknown Medication Reconciliation New Medications: Morphine Sulfate (Morphine Sulfate) 2 Mg/Ml Inj 2 MG IV Q4H PRN for Pain for 30 Days [Piperacill/Tazobac Consult] () 1 EA MISC 1 EA N/A UD PRN for Consult [Vancomycin Consult Active] () 1 EA MISC 1 EA N/A UD PRN for Consult Continued Medications: Amlodipine (Norvasc) 5 Mg Tab 5 MG PO DAILY, TAB Aspirin (Aspirin Ec) 81 Mg Tab 81 MG PO DAILY Atenolol (Tenormin) 25 Mg Tab 25 MG PO QAM Atenolol (Atenolol) 50 Mg Tab 50 MG PO QAFTERNOON Atorvastatin (Lipitor) 80 Mg Tab 80 MG PO DAILY, TAB B-Complex W/Biotin & Folic Aci (Super B-Complex) 1 Cap Cap 1 CAP PO DAILY Magnesium (Magnesium 250 mg) 1 Tab Tab 1 TAB PO DAILY Pantoprazole Sodium (Protonix) 40 Mg Tab 40 MG PO DAILY, TAB Ranitidine (Zantac) 150 Mg Tab 150 MG PO Q12, TAB Zolpidem Tartrate (Zolpidem Tartrate) 10 Mg Tab 10 MG PO HS PRN for Sleep for 30 Days, #30 TAB Discontinued Medications: Apixaban (Eliquis) 2.5 Mg Tab 2.5 MG PO BID, TAB Lisinopril (Zestril) 10 Mg Tab 10 MG PO DAILY, TAB Nitroglycerin (Nitrostat) 0.4 Mg Tab 0.4 MG UT UD PRN for Chest Pain Potassium (Potassium) 99 Mg Tab 99 MG PO BID Discharge Exam Review of Systems: Constitutional: + fever, No chills, No sweats, No weight loss, No weakness, No fatigue, No problem reported Eyes: No worsening of vision, No eye pain, No redness, No discharge, No diplopia, No problem reported ENT: No hearing loss, No unusual epistaxis, No nasal symptoms, No sore throat, No tinnitus, No dental problems, No trouble swallowing, No problem reported Respiratory: No cough, No sputum, No wheezing, No shortness of breath, No dyspnea on exertion, No dyspnea at rest, No hemoptysis, No problem reported Cardiovascular: No chest pain, No orthopnea, No PND, No edema, No claudication, No palpitations, No problem reported Abdomen: + pain, No nausea, No vomiting, No diarrhea, No constipation, No GI bleeding, No problem reported Musculoskeletal: No joint pain, No muscle pain, No swelling, No calf pain, No problem reported Genitourinary - Male: No hematuria, No dysuria, No urinary frequency, No urinary urgency, No urinary hesitancy, No urinary retention, No urinary incontinence, No penile discharge, No lesions, No impotence, No problem reported Neurologic: No memory loss, No paralysis, No weakness, No numbness/tingling , No vertigo, No balance problems, No problem reported Psychiatric: No depression symptoms, No anhedonism, No anxiety, No insomnia , No substance abuse, No problem reported Endocrine: No fatigue, No excessive thirst, No excessive urination, No problem reported Hematologic / Lymphatic: No abnormal bleeding/bruising, No clotting problems , No swollen lymph nodes, No night sweats, No problem reported Integumentary: No rash, No itch, No new/changing skin lesions, No color change, No bleeding, No problem reported Physical Exam: General Appearance: + moderate distress Eyes: normal inspection, EOMI ENT: normal ENT inspection, hearing grossly normal Neck: supple Respiratory/Chest: chest non-tender, lungs clear, normal breath sounds, no respiratory distress, no accessory muscle use Cardiovascular: regular rate, rhythm, no edema, no gallop, no JVD, no murmur , normal peripheral pulses Abdomen / GI: normal bowel sounds, + tenderness, + distended, + guarding, + rebound Extremities: normal inspection, no calf tenderness, normal capillary refill , no pedal edema, normal range of motion Neurologic/Psychiatric: 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 Presented to the ED with generalized lower abdominal pain for further evaluation and management. CTA on 03/20 was reveiweid, despite of severe disease there was no thrombus. GI consulted S/P EGD that showed erythema and congestion and gastric antrum with 3 nonbleeding gastric ulcers. prior to that Eliquis was stopped was supposed to go for another EGD for biopsies (CTA showed lymphadenopathy) GI attending wanted to R/O lymphoma, due to the persistent abdominal pain was also going to have a colonoscopy tomorrow spiked fever of 38.9 blood Cx were sent and he was started on Vnaco/zosyn abdominal pain remains significant , CT abd with contrast was ordered showed splenic artery thrombus and 75% of spleen infarct. I discussed results with Dr. Mathias from GI who recommended after patient is stabilized a repeat EGD should be done for biopsies of stomach as stomach wall was thickened with ulcers suspecting gastric lymphoma. also recommended following up on a pending H pylori stool test that was sent from our facility patient is still off Eliquis and on heparin drip I spoke with Dr. 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 COMPARISON STUDY: Abdominal CT dated 03/20/2017. TECHNIQUE: Following the IV administration of 93 cc of Optiray 320, CT scan of the abdomen and pelvis is performed from the lung bases to the proximal femora. Images are reviewed in the axial, sagittal, and coronal planes. IV contrast was administered without complication. A dose lowering technique was utilized adhering to the principles of ALARA. The examination is degraded by motion artifact. CT scan 03/29 Lung bases: The heart is enlarged and without pericardial effusion. The coronary arteries are densely calcified. There are small pleural effusions, right larger than left with associated atelectasis. Segmental atelectasis is present in the left lower lobe. Intralobular septal thickening suggests congestive failure. There is a small hiatal hernia. Liver: The contrast-enhanced liver is enlarged, measuring 19.4 cm in length. The liver demonstrates heterogeneous attenuation. There is minimal central intrahepatic biliary ductal dilatation. The hepatic veins and portal veins are patent. Gallbladder: Surgically absent noting clips in the gallbladder fossa. Spleen: The spleen is enlarged, measuring 14.6 cm in length. Calcified granulomas are identified. There are large perfusion defects involving greater than 75% of the spleen consistent with a large splenic infarct. No perisplenic fluid is seen. pancreas: Atrophic and grossly unremarkable. Adrenal glands: Unremarkable. Kidneys: The contrast enhanced kidneys are mildly atrophic and without hydronephrosis. The kidneys enhance symmetrically. Scattered subcentimeter cortical hypodensities likely represent cysts but are too small for definitive characterization. Abdominal vasculature: There is advanced atherosclerotic calcification and ectasia of the abdominal aorta. An aortobiiliac graft is noted. There is ectasia of the left common iliac artery which measures up to 1.5 cm. There is high-grade stenosis of the left renal artery. Thrombus is identified within the splenic artery seen on image #110. Bowel: The small bowel and colon are normal in course and caliber. The appendix is well-visualized and normal. Peritoneum: There is trace perihepatic ascites as well as a small volume of pelvic ascites. No intraperitoneal free air is seen. Lymphadenopathy: There are numerous shotty retroperitoneal lymph nodes, similar to previous. Pelvic viscera: The prostate gland is markedly enlarged and heterogeneous, measuring 5.7 cm transverse diameter. There is median lobe hypertrophy. The bladder wall is markedly thickened and trabeculated consistent with chronic caliber obstruction. Small bladder diverticula are noted. Skeletal structures: The skeletal structures are osteopenic. Mild lumbosacral spondylosis is observed. There is chronic deformity of the right ilium with evidence of previous bone graft donor site. No lytic or blastic lesions are seen. IMPRESSION: 1. Findings are consistent with a large splenic infarct (involving greater than 75% of the splenic parenchyma). This is new from 03/20/2017, and thrombus is seen within the distal splenic artery. 2. Cardiomegaly and small pleural effusions. Pleural effusions are new from previous. 3. There is a small volume of abdominopelvic ascites, new from previous. 4. Advanced atherosclerotic disease. 5. 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 6. Additional findings as above. Electronically signed by: Matty Gaston M.D. 03/29/2017 6:[address] angiogram abdomen obtained on March 20 report attached below 1. Overall, no significant change compared to the prior study. No bowel wall thickening or obstruction. 2. 50% stenosis of the proximal right renal artery 3. Postsurgical changes of a left renal artery reimplantation. Stable 50% stenosis proximally. 4. Postsurgical changes of aorto biiliac grafting. 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 5. 40% diameter narrowing at the level of each distal iliac graft/common iliac artery anastomosis 6. 40% diameter narrowing of the left common femoral artery. Total Time Spent: Greater than 30 minutes This includes examination of the patient, discharge planning, medication reconciliation, and communication with other providers. Discharge Instructions Please refer to the electronic Patient Visit Report (Discharge Instructions) for additional information.
== END 2017-03-29 23:09 | disposition short-term general hospital (02) | DRG 300 ==
LOC: C.EDB 17:35 → C.MED 21:22 → ENRESERV 21:38
PROVIDERS: ADMIT Student in an Organized Health Care Education/Training Program; ATTEND Internal Medicine
PROC: 0DJ08ZZ Inspection of Upper Intestinal Tract, Via Natural or Artificial Opening Endoscopic (ICD-10-PCS; principal; 2017-03-27 14:04)
DX: I74.8 Embolism and thrombosis of other arteries (principal); N17.9 Acute kidney failure, unspecified; I48.91 Unspecified atrial fibrillation; I25.10 Atherosclerotic heart disease of native coronary artery without angina pectoris; I12.9 Hypertensive chronic kidney disease with stage 1 through stage 4 chronic kidney disease, or unspecified chronic kidney disease; N18.3 Chronic kidney disease, stage 3 (moderate); I25.2 Old myocardial infarction; I73.9 Peripheral vascular disease, unspecified; I70.1 Atherosclerosis of renal artery; Z87.891 Personal history of nicotine dependence; Z79.82 Long term (current) use of aspirin; K21.9 Gastro-esophageal reflux disease without esophagitis; Z95.1 Presence of aortocoronary bypass graft; K59.00 Constipation, unspecified; E78.5 Hyperlipidemia, unspecified; K25.9 Gastric ulcer, unspecified as acute or chronic, without hemorrhage or perforation

== ENCOUNTER → 2017-06-01 | Outpatient (CLI) | payer OTHER ==
[~2017-06-01] MED LIST changes: +AMLO-110 PO; -LSN5 PO; +MRPIS2 IV; -NTRGSL/4 UT; -POTA99TA PO; +Piperacill/Tazobac Consult; +TNR50 PO; +Vancomycin Consult Active
== END | disposition home or self-care (01) ==
LOC: C.LAB1850 10:41
PROVIDERS: ATTEND Internal Medicine Gastroenterology
DX: K25.9 Gastric ulcer, unspecified as acute or chronic, without hemorrhage or perforation (principal)

== ENCOUNTER → 2017-09-15 | Outpatient (CLI) | payer OTHER ==
[~2017-09-15] MED LIST changes: +RANI150T85 PO; -ZNTT/150 PO
[2017-09-15 10:44] LABS: HEMATOCRIT 38.2 % (42-52); MEAN CELL VOLUME 84.5 fL (80-100); MEAN CORPUSCULAR HEMOGLOBIN 28.8 pg (25-34); MEAN PLATELET VOLUME 11.2 fL (7.4-10.4); PLATELET COUNT 246 K/uL (130-400); RED CELL DISTRIBUTION WIDTH CV 13.1 % (11.5-14.5); RED CELL DISTRIBUTION WIDTH SD 40.2 fL (36.4-46.3); WHITE BLOOD COUNT 8.71 K/uL (4.8-10.8)
[2017-09-15 11:10] LABS: ALT/SGPT 22 U/L (12-78); AST/SGOT 14 U/L (15-37); BLOOD UREA NITROGEN 21 mg/dl (7-18); CALCIUM 8.4 mg/dl (8.5-10.1); CARBON DIOXIDE 25 mmol/L (21-32); CHOLESTEROL 96 mg/dl (0-200); CREATININE 1.65 mg/dl (0.60-1.40); GLUCOSE 108 mg/dl (70-99); LDL CHOLESTEROL CALCULATED 45 mg/dl; POTASSIUM 4.4 mmol/L (3.5-5.1); SODIUM 142 mmol/L (136-145)
== END | disposition home or self-care (01) ==
LOC: C.LAB1850 09:14
PROVIDERS: ATTEND Internal Medicine
DX: E78.5 Hyperlipidemia, unspecified (principal); N18.3 Chronic kidney disease, stage 3 (moderate); R73.09 Other abnormal glucose

== ENCOUNTER 2020-07-16 08:55 | Inpatient (IN) ==
[2020-07-16 09:40] LABS: Basophils # (auto) 0.02 K/uL (0-0.2); Basophils % (auto) 0.2 %; Eosinophils # (auto) 0.19 K/uL (0-0.5); Eosinophils % (auto) 2.2 %; Hemoglobin 13.6 g/dL (14.0-18.0); Immature Granulocytes # (auto) 0.02 K/uL (0.00-0.02); Immature Granulocytes % (auto) 0.2 %; Lymphocytes # (auto) 1.22 K/uL (1.2-3.4); Mean Corpuscular Hemoglobin 29.2 pg (25-34); Mean Corpuscular Volume 85.8 fL (80-100); Mean Platelet Volume 11.2 fL (7.4-10.4); Monocytes # (auto) 0.59 K/uL (0.11-0.59); Monocytes % (auto) 6.8 %; Neutrophils % (auto) 76.6 %; Platelet Count 236 K/uL (130-400); RDW Coefficient of Variation 14.5 % (11.5-14.5); RDW Standard Deviation 45.4 fL (36.4-46.3); Red Blood Count 4.66 M/uL (4.7-6.1); White Blood Count 8.74 K/uL (4.8-10.8)
[2020-07-16 09:59] LABS: Albumin Level 3.8 gm/dl (3.4-5.0); BUN Creatinine Ratio 12.7 (10-20); Calcium 9.2 mg/dl (8.5-10.1); Creatinine Clr Calc Pharmacy 38.3 ml/min; Est GFR (African American) 46.2; Est GFR (Non-African American) 39.9; Potassium 4.2 mmol/L (3.5-5.1)
[2020-07-16 10:04] LABS: Bilirubin,Total 1.6 mg/dl (0.2-1); Globulin 3.7 gm/dl (2.5-4.0); Total Protein 7.5 gm/dl (6.4-8.2); Troponin I 0.024 ng/ml (0-0.045)
--- NOTE | 2020-07-16 10:13 | XRay Report ---
XR chest 1V portable CLINICAL HISTORY: Atypical chest pain. COMPARISON STUDY: Chest CT March 12, 2020. FINDINGS: Lung volumes are normal. Lungs are clear. There is no pneumothorax or pleural effusion. Mod erate cardiomegaly is unchanged. Mediastinal contours are normal. There is no evidence for pulmonary edema. Median sternotomy wires and clips from bypass grafting are noted. IMPRESSION: No acute cardiopulmonary findings. Cardiomegaly. ACT 112: Negative or not required by law. Electronically signed by: Manuelito Christine M.D. 07/16/2020 10:12 AM
--- NOTE | 2020-07-16 10:31 | Emergency Department Note ---
Impression & Plan Non-ST elevated myocardial infarction, Right-sided chest pain, Atrial fibrillation, Elevated troponin ED Provider Note INFORMANT: Patient ED PROVIDER(S): Jorge Luis Padilla MD CHIEF COMPLAINT: Chest pain PLAN: Disposition: Admitted Condition: Good Outpatient prescription management: none Referral: None MEDICAL DECISION MAKING: Patient presented with right-sided chest pain. This started after he woke up. It did not wake him up. He notes a tender chest wall. It is worse with moveme nt and reproducible. Patient's daughter did contact the emergency department and stated that he has been dealing with shortness of breath and followed by cardiology. He does have an extensive cardiac history. His blood work was unremarkable. Chest x-ray did not reveal any obvious source. He was sent for CT PE study imaging to rule out any pathology. The patient's troponin on first measurement was within normal limits however it was not 0. This prompted a second troponin to be ordered. CT PE study did not reveal any acute pathology. His repeat troponin was elevated concerning for non-ST elevation GA. The patient was given 2 mg of morphine and nitroglycerin paste applied. He had harvey barahona taken aspirin today and is on Eliquis. He was informed. [facility], Dr. Pastrana. Triage Nursing notes reviewed and agree them. Vital Signs: reviewed and remarkable for no significant abnormalities Differential diagnosis: Cardiac ischemia, aortic dissection, pulmonary embolism, pneumothorax, pneumonia, pericarditis, myocarditis, esophageal rupture, GERD, cholecystitis, pancreatitis, musculoskeletal, as well as other pathologies. Diagnostics interpreted by me: ECG: Twelve-lead ECG reveals atrial fibrillation with PVCs at 61 bpm. There are lateral ST and T wave changes present normal axis and intervals. Cardiac Monitoring: Cardiac monitoring ordered by me: The patient was placed on continuous cardiac monitoring and observed. It revealed atrial fibrillation at 60 beats per minute. Imaging studies: Chest x-ray. Findings: A chest x-ray was performed and revealed no pneumothorax, effusion, infiltrate, pulmonary edema, free air under the diaphragm, or wide mediastinum. Impression: No acute disease. HPI: The patient is a 85 year old male who presents to the Emergency Room with complaints of right-sided chest pain. This started this morning about 4 hours ago and is persisting. The patient also notes the following associated s ymptoms, none. The patient has been following with cardiology. He has a history of CAD and stents. He is also had some shortness of breath that has been followed by cardiology. He does have history of ischemic cardiomyopathy. The patient has taken no medication for relieving factors. Current pain is rated as 4/10. Patient states he did lift 2 cases of water and tea yesterday. He does not feel like he suffered an injury at that time. He does note the pain is worse when he presses on his right chest as well as raises his right arm over his head. Pt denies LOC, headache, fevers, chills, diaphoresis, visual changes, neck pain, Covid exposure, nausea, vomiting, abdominal pain, back pain, melena, hematochezia, urinary symptoms, numbness, weakness, lymphadenopathy, rash, or other complaints. ROS: See above HPI for pertinent positives & negatives. A total of 10 systems reviewed and were otherwise negative. PAST MEDICAL HISTORY:See Below , CAD PAST SURGICAL HISTORY:See Below, cardiac stenting FAMILY HISTORY:See Below SOCIAL HISTORY:See Below, retired HOME MEDICATIONS:See Below ALLERGIES:See Below VITALS:See Below PHYSICAL EXAMINATION: GENERAL: Awake, alert, well-appearing, in no distress HENT: Normocephalic, atraumatic. Oropharynx unremarkable. EYES: Normal conjunctiva. Sclera non-icteric. NECK: Inspection normal. Non-tender. Supple. No nuchal rigidity. FROM. No masses. RESPIRATORY: Clear to auscultation. No wheezes. No rales. Normal respiratory effort. CARDIAC: Normal rate. Normal rhythm. No murmurs. No rubs. Extremities warm and well perfused. Pulses equal. No JVD. GI: Soft, non-distended. No tenderness to palpation. No rebound or guarding. No masses. RECTAL: Deferred. MUSCULOSKELETAL: Atraumatic. Chest examination reveals right upper chest wall tenderness. The back is symmetrical on inspection without obvious abnormality. There is no CVA tenderness to palpation. No joint edema. LOWER EXTREMITIES: Calves are equal size bilaterally and non-tender. No edema. No discoloration. NEURO: Normal sensorium. No sensory or motor deficits noted. SKIN: No rash or jaundice noted. ED COURSE: CRITICAL CARE: I have personally spent greater than 35 minutes of critical care time in the direct management of this patient. This includes bedside care, interpretation of diagnostic studies, and testing, discussion with consultants, patient, and other required patient management activities. These minutes are in excess of all separately billable procedures. Jorge Luis Padilla MD Past Med/Surg History Medical History (Reviewed 07/05/20 @ 09:05 by Jeff Rodas Jr, MD, [facility]) Anemia Atrial fibrillation CAD (coronary artery disease) Chronic kidney disease, stage 3 Hypertension Ischemic cardiomyopathy Peripheral arterial disease Renal artery stenosis (11/23/12) Splenic infarct Vitamin D deficiency Surgical History (Reviewed 07/05/20 @ 09:05 by Jeff Rodas Jr, MD, [facility]) History of cholecystectomy History of endovascular stent graft for abdominal aortic aneurysm (AAA) Hx of heart bypass surgery Family History (Reviewed 07/05/20 @ 09:05 by Jeff Rodas Jr, MD, [facility]) Father No problems noted. Mother Myocardial infarction Brother Myocardial infarction Other Coronary heart disease Denies family history of Ovarian cancer Prostate cancer Breast cancer Colorectal cancer Social History (Reviewed 07/05/20 @ 09:05 by Jeff Rodas Jr, MD, [facility]) Smoking Status: Former smoker Second Hand Exposure: Yes; Hx Alcohol Use: No Hx Substance Use: No Preferred Language: Greenlandic Communication Ability: Effective Visual Impairment: No Limitations Hearing Ability: Normal marital status: / current occupational status: retired Feels Safe at Home: Yes Dental Care, Regularly: Yes Physical Activity Frequency: Does not Exercise Seatbelt Use: always Allergies Allergies Allergy/AdvReac Type Severity Reaction Status Date / Time prazosin AdvReac Intermediate HYPOTENSION Verified 07/16/20 09:59 ranolazine AdvReac Intermediate Dizziness Verified 07/16/20 09:59 Home Meds Home Medications Medication Instructions Recorded Confirmed B-complex with vitamin C [Super B 1 tab PO QAM 06/15/18 07/16/20 Complex-Vitamin C] aspirin 81 mg PO QAM 06/15/18 07/16/20 atorvastatin 80 mg PO HS 06/15/18 07/16/20 potassium 99 mg PO QAM 06/21/18 07/16/20 apixaban 2.5 mg tablet 2.5 mg PO BID #180 tab 12/14/18 07/16/20 cholecalciferol (vitamin D3) 25 5,000 units PO QAM cap 12/14/18 07/16/20 mcg (1,000 unit) capsule nitroglycerin 0.4 mg sublingual 0.4 mg SUBLINGUAL Q5M PRN tab 02/22/19 07/16/20 tablet losartan 50 mg-hydrochlorothiazide 0.5 tab PO DAILY 12/19/19 07/16/20 12.5 mg tablet amlodipine 5 mg tablet 5 mg PO DAILY 03/13/20 07/16/20 Previous Rx's Medication Instructions Recorded pantoprazole 40 mg tablet,delayed 40 mg PO HS #90 tab 02/11/19 release tamsulosin 0.4 mg capsule 0.4 mg PO DAILY #30 cap 04/13/19 allopurinol 100 mg tablet 200 mg PO DAILY #180 tab 06/02/19 Results & Data (ED) Vital Signs Vital Signs - 24 hr 07/16/20 08:57 07/16/20 09:06 07/16/20 09:13 Temperature 36.2 C L Temperature Source Temporal Artery Scan Pulse Rate 60 53 L 53 L Pulse Rate [Right Finger] Pulse Rate from SpO2 Sensor 54 L 54 L Respiratory Rate 18 12 15 Respiratory Effort / Characteristics Non-Labored Spontaneous Respiratory Depth Normal Blood Pressure 173/74 H 165/89 H Blood Pressure [Left Arm] Blood Pressure Mean 107 114 Blood Pressure Mean [Left Arm] Blood Pressure Position Sitting Blood Pressure Position [Left Arm] Pulse Oximetry 99 98 97 Oxygen Delivery Method Room Air Sepsis Recent Fever Within 48 Hours No Sepsis New/Unexplained Change in Mental Status No Sepsis Action Taken by Nursing No Action Required 07/16/20 09:20 07/16/20 09:30 07/16/20 09:31 Temperature Temperature Source Pulse Rate 58 L 55 L 57 L Pulse Rate [Right Finger] Pulse Rate from SpO2 Sensor 60 52 L 53 L Respiratory Rate 15 14 16 Respiratory Effort / Characteristics Respiratory Depth Blood Pressure 172/73 H Blood Pressure [Left Arm] Blood Pressure Mean 106 Blood Pressure Mean [Left Arm] Blood Pressure Position Blood Pressure Position [Left Arm] Pulse Oximetry 97 97 97 Oxygen Delivery Method Sepsis Recent Fever Within 48 Hours Sepsis New/Unexplained Change in Mental Status Sepsis Action Taken by Nursing 07/16/20 09:40 07/16/20 09:50 07/16/20 10:00 Temperature Temperature Source Pulse Rate 58 L 52 L 56 L Pulse Rate [Right Finger] Pulse Rate from SpO2 Sensor 54 L 50 L 56 L Respiratory Rate 13 21 18 Respiratory Effort / Characteristics Respiratory Depth Blood Pressure 160/73 H Blood Pressure [Left Arm] Blood Pressure Mean 102 Blood Pressure Mean [Left Arm] Blood Pressure Position Blood Pressure Position [Left Arm] Pulse Oximetry 97 97 96 Oxygen Delivery Method Sepsis Recent Fever Within 48 Hours Sepsis New/Unexplained Change in Mental Status Sepsis Action Taken by Nursing 07/16/20 10:10 07/16/20 10:20 07/16/20 10:30 Temperature Temperature Source Pulse Rate 54 L 52 L 48 L Pulse Rate [Right Finger] Pulse Rate from SpO2 Sensor 55 L 47 L 50 L Respiratory Rate 20 23 21 Respiratory Effort / Characteristics Respiratory Depth Blood Pressure 155/65 H Blood Pressure [Left Arm] Blood Pressure Mean 95 Blood Pressure Mean [Left Arm] Blood Pressure Position Blood Pressure Position [Left Arm] Pulse Oximetry 97 96 97 Oxygen Delivery Method Sepsis Recent Fever Within 48 Hours Sepsis New/Unexplained Change in Mental Status Sepsis Action Taken by Nursing 07/16/20 10:31 07/16/20 10:40 07/16/20 10:50 Temperature Temperature Source Pulse Rate 48 L 56 L 57 L Pulse Rate [Right Finger] Pulse Rate from SpO2 Sensor 48 L 53 L 55 L Respiratory Rate 22 21 20 Respiratory Effort / Characteristics Respiratory Depth Blood Pressure Blood Pressure [Left Arm] Blood Pressure Mean Blood Pressure Mean [Left Arm] Blood Pressure Position Blood Pressure Position [Left Arm] Pulse Oximetry 95 96 95 Oxygen Delivery Method Sepsis Recent Fever Within 48 Hours Sepsis New/Unexplained Change in Mental Status Sepsis Action Taken by Nursing 07/16/20 11:08 07/16/20 11:09 07/16/20 11:10 Temperature Temperature Source Pulse Rate 56 L 60 67 Pulse Rate [Right Finger] Pulse Rate from SpO2 Sensor 58 L 65 Respiratory Rate 11 L 13 11 L Respiratory Effort / Characteristics Respiratory Depth Blood Pressure 166/68 H Blood Pressure [Left Arm] Blood Pressure Mean 100 Blood Pressure Mean [Left Arm] Blood Pressure Position Blood Pressure Position [Left Arm] Pulse Oximetry 96 96 Oxygen Delivery Method Sepsis Recent Fever Within 48 Hours Sepsis New/Unexplained Change in Mental Status Sepsis Action Taken by Nursing 07/16/20 11:15 07/16/20 11:20 07/16/20 11:30 Temperature Temperature Source Pulse Rate 63 56 L Pulse Rate [Right Finger] 59 L Pulse Rate from SpO2 Sensor 59 L 61 Respiratory Rate 18 23 21 Respiratory Effort / Characteristics Non-Labored Spontaneous Respiratory Depth Normal Blood Pressure 141/71 H Blood Pressure [Left Arm] 166/68 H Blood Pressure Mean 94 Blood Pressure Mean [Left Arm] 100 Blood Pressure Position Blood Pressure Position [Left Arm] Sitting Pulse Oximetry 96 95 96 Oxygen Delivery Method Room Air Sepsis Recent Fever Within 48 Hours Sepsis New/Unexplained Change in Mental Status Sepsis Action Taken by Nursing 07/16/20 11:31 07/16/20 11:40 07/16/20 11:54 Temperature Temperature Source Pulse Rate 53 L 55 L 57 L Pulse Rate [Right Finger] Pulse Rate from SpO2 Sensor 55 L 51 L 55 L Respiratory Rate 24 20 14 Respiratory Effort / Characteristics Respiratory Depth Blood Pressure Blood Pressure [Left Arm] Blood Pressure Mean Blood Pressure Mean [Left Arm] Blood Pressure Position Blood Pressure Position [Left Arm] Pulse Oximetry 95 95 98 Oxygen Delivery Method Sepsis Recent Fever Within 48 Hours Sepsis New/Unexplained Change in Mental Status Sepsis Action Taken by Nursing 07/16/20 12:00 07/16/20 12:01 07/16/20 12:10 Temperature Temperature Source Pulse Rate 56 L 54 L 49 L Pulse Rate [Right Finger] Pulse Rate from SpO2 Sensor 58 L 55 L 53 L Respiratory Rate 21 20 21 Respiratory Effort / Characteristics Respiratory Depth Blood Pressure 165/78 H Blood Pressure [Left Arm] Blood Pressure Mean 107 Blood Pressure Mean [Left Arm] Blood Pressure Position Blood Pressure Position [Left Arm] Pulse Oximetry 97 98 97 Oxygen Delivery Method Sepsis Recent Fever Within 48 Hours Sepsis New/Unexplained Change in Mental Status Sepsis Action Taken by Nursing 07/16/20 12:20 07/16/20 12:30 07/16/20 12:31 Temperature Temperature Source Pulse Rate 52 L 61 52 L Pulse Rate [Right Finger] Pulse Rate from SpO2 Sensor 53 L 62 57 L Respiratory Rate 18 23 20 Respiratory Effort / Characteristics Respiratory Depth Blood Pressure 147/76 H Blood Pressure [Left Arm] Blood Pressure Mean 99 Blood Pressure Mean [Left Arm] Blood Pressure Position Blood Pressure Position [Left Arm] Pulse Oximetry 97 97 96 Oxygen Delivery Method Sepsis Recent Fever Within 48 Hours Sepsis New/Unexplained Change in Mental Status Sepsis Action Taken by Nursing 07/16/20 12:40 07/16/20 12:50 07/16/20 13:00 Temperature Temperature Source Pulse Rate 52 L 60 53 L Pulse Rate [Right Finger] 65 Pulse Rate from SpO2 Sensor 54 L 58 L 55 L Respiratory Rate 23 16 20 Respiratory Effort / Characteristics Non-Labored Spontaneous Respiratory Depth Normal Blood Pressure 151/90 H Blood Pressure [Left Arm] 151/90 H Blood Pressure Mean 110 Blood Pressure Mean [Left Arm] 110 Blood Pressure Position Blood Pressure Position [Left Arm] Lying Pulse Oximetry 97 96 95 Oxygen Delivery Method Room Air Sepsis Recent Fever Within 48 Hours Sepsis New/Unexplained Change in Mental Status Sepsis Action Taken by Nursing 07/16/20 13:01 07/16/20 13:10 07/16/20 13:20 Temperature Temperature Source Pulse Rate 61 57 L 53 L Pulse Rate [Right Finger] Pulse Rate from SpO2 Sensor 65 59 L 53 L Respiratory Rate 18 20 16 Respiratory Effort / Characteristics Respiratory Depth Blood Pressure Blood Pressure [Left Arm] Blood Pressure Mean Blood Pressure Mean [Left Arm] Blood Pressure Position Blood Pressure Position [Left Arm] Pulse Oximetry 96 97 96 Oxygen Delivery Method Room Air Room Air Room Air Sepsis Recent Fever Within 48 Hours Sepsis New/Unexplained Change in Mental Status Sepsis Action Taken by Nursing 07/16/20 13:30 07/16/20 13:31 07/16/20 13:40 Temperature Temperature Source Pulse Rate 53 L 53 L 59 L Pulse Rate [Right Finger] Pulse Rate from SpO2 Sensor 54 L 54 L 61 Respiratory Rate 20 19 17 Respiratory Effort / Characteristics Respiratory Depth Blood Pressure 155/70 H Blood Pressure [Left Arm] Blood Pressure Mean 98 Blood Pressure Mean [Left Arm] Blood Pressure Position Blood Pressure Position [Left Arm] Pulse Oximetry 95 96 96 Oxygen Delivery Method Room Air Room Air Sepsis Recent Fever Within 48 Hours Sepsis New/Unexplained Change in Mental Status Sepsis Action Taken by Nursing 07/16/20 13:50 07/16/20 14:00 07/16/20 14:01 Temperature Temperature Source Pulse Rate 57 L 55 L 53 L Pulse Rate [Right Finger] Pulse Rate from SpO2 Sensor 56 L 57 L 59 L Respiratory Rate 20 23 19 Respiratory Effort / Characteristics Respiratory Depth Blood Pressure 147/80 H Blood Pressure [Left Arm] Blood Pressure Mean 102 Blood Pressure Mean [Left Arm] Blood Pressure Position Blood Pressure Position [Left Arm] Pulse Oximetry 96 95 95 Oxygen Delivery Method Room Air Room Air Room Air Sepsis Recent Fever Within 48 Hours Sepsis New/Unexplained Change in Mental Status Sepsis Action Taken by Nursing 07/16/20 14:10 Temperature Temperature Source Pulse Rate 56 L Pulse Rate [Right Finger] Pulse Rate from SpO2 Sensor 56 L Respiratory Rate 14 Respiratory Effort / Characteristics Respiratory Depth Blood Pressure Blood Pressure [Left Arm] Blood Pressure Mean Blood Pressure Mean [Left Arm] Blood Pressure Position Blood Pressure Position [Left Arm] Pulse Oximetry 96 Oxygen Delivery Method Room Air Sepsis Recent Fever Within 48 Hours Sepsis New/Unexplained Change in Mental Status Sepsis Action Taken by Nursing Laboratory Data Result diagrams: 07/16/20 09:15 07/16/20 09:15 Lab Results 07/16/20 07/16/20 07/16/20 Range/Units 09:15 09:15 11:53 WBC 8.74 (4.8-10.8) K/uL RBC 4.66 L (4.7-6.1) M/uL Hgb 13.6 L (14.0-18.0) g/dL Hct 40.0 L (42-52) % MCV 85.8 (80-100) fL MCH 29.2 (25-34) pg MCHC 34.0 (32-36) g/dL RDW Std Deviation 45.4 (36.4-46.3) fL RDW Coeff of Ari 14.5 (11.5-14.5) % Plt Count 236 (130-400) K/uL MPV 11.2 H (7.4-10.4) fL Immature Gran % (Auto) 0.2 % Neut % (Auto) 76.6 % Lymph % (Auto) 14.0 % Wetzel % (Auto) 6.8 % Eos % (Auto) 2.2 % Baso % (Auto) 0.2 % Neut # (Auto) 6.70 H (1.4-6.5) K/uL Lymph # (Auto) 1.22 (1.2-3.4) K/uL Wetzel # (Auto) 0.59 (0.11-0.59) K/uL Eos # (Auto) 0.19 (0-0.5) K/uL Baso # (Auto) 0.02 (0-0.2) K/uL Immature Gran # (Auto) 0.02 (0.00-0.02) K/uL Sodium 140 (136-145) mmol/L Potassium 4.2 (3.5-5.1) mmol/L Chloride 108 H (98-107) mmol/L Carbon Dioxide 25 (21-32) mmol/L Anion Gap 7.0 (3-11) BUN 20 H (7-18) mg/dl Creatinine 1.58 H (0.6-1.4) mg/dl Est Cr Clr Drug Dosing 38.3 ml/min Est GFR ( Amer) 46.2 Est GFR (Non-Af Amer) 39.9 BUN/Creatinine Ratio 12.7 (10-20) Glucose 116 H (70-99) mg/dl Calcium 9.2 (8.5-10.1) mg/dl Total Bilirubin 1.6 H (0.2-1) mg/dl AST 11 L (15-37) U/L ALT 18 (12-78) U/L Alkaline Phosphatase 145 H (45-117) U/L Troponin I 0.024 0.163 H* (0-0.045) ng/ml Total Protein 7.5 (6.4-8.2) gm/dl Albumin 3.8 (3.4-5.0) gm/dl Globulin 3.7 (2.5-4.0) gm/dl Albumin/Globulin Ratio 1.0 (0.9-2) Lipase 160 (73-393) U/L COVID-19 Eval Order SARS-CoV-2 (PCR) (Negative) Influenza Type A (PCR) (Neg) Influenza Type B (PCR) (Neg) RSV (RT-PCR) (Neg) 07/16/20 07/16/20 Range/Units 13:15 13:15 WBC (4.8-10.8) K/uL RBC (4.7-6.1) M/uL Hgb (14.0-18.0) g/dL Hct (42-52) % MCV (80-100) fL MCH (25-34) pg MCHC (32-36) g/dL RDW Std Deviation (36.4-46.3) fL RDW Coeff of Ari (11.5-14.5) % Plt Count (130-400) K/uL MPV (7.4-10.4) fL Immature Gran % (Auto) % Neut % (Auto) % Lymph % (Auto) % Wetzel % (Auto) % Eos % (Auto) % Baso % (Auto) % Neut # (Auto) (1.4-6.5) K/uL Lymph # (Auto) (1.2-3.4) K/uL Wetzel # (Auto) (0.11-0.59) K/uL Eos # (Auto) (0-0.5) K/uL Baso # (Auto) (0-0.2) K/uL Immature Gran # (Auto) (0.00-0.02) K/uL Sodium (136-145) mmol/L Potassium (3.5-5.1) mmol/L Chloride (98-107) mmol/L Carbon Dioxide (21-32) mmol/L Anion Gap (3-11) BUN (7-18) mg/dl Creatinine (0.6-1.4) mg/dl Est Cr Clr Drug Dosing ml/min Est GFR ( Amer) Est GFR (Non-Af Amer) BUN/Creatinine Ratio (10-20) Glucose (70-99) mg/dl Calcium (8.5-10.1) mg/dl Total Bilirubin (0.2-1) mg/dl AST (15-37) U/L ALT (12-78) U/L Alkaline Phosphatase (45-117) U/L Troponin I (0-0.045) ng/ml Total Protein (6.4-8.2) gm/dl Albumin (3.4-5.0) gm/dl Globulin (2.5-4.0) gm/dl Albumin/Globulin Ratio (0.9-2) Lipase (73-393) U/L COVID-19 Eval Order CovFluRsv at [facility] SARS-CoV-2 (PCR) NEGATIVE (Negative) Influenza Type A (PCR) Negative (Neg) Influenza Type B (PCR) Negative (Neg) RSV (RT-PCR) Negative (Neg) Administered Medications Discontinued Medications Ioversol (Optiray 320 125ml) 119 ml IV ONCE ONE Stop: 07/16/20 11:01 Last Admin: 07/16/20 11:01 Dose: 119 ml Documented by: [id number] Morphine Sulfate (Morphine Sulfate 2 Mg/Ml Carp) 2 mg IV NOW STA Stop: 07/16/20 12:49 Last Admin: 07/16/20 13:12 Dose: 2 mg Documented by: [id number] Nitroglycerin (Nitroglycerin 2% Ointment 30gm Tube) 0.5 inch EXT NOW STA Stop: 07/16/20 12:49 Last Admin: 07/16/20 13:12 Dose: 0.5 inch Documented by: [id number] Discharge Plan Visit Data Chief Complaint: Chest Pain Stated Complaint: CHEST PAIN ED Provider: Jorge Luis Padilla Discharge Problem: Non-ST elevated myocardial infarction, Right-sided chest pain, Atrial fibrillation, Elevated troponin Forms Stand Alone Forms: My [facility] [employer] Prescriptions Prescriptions: No Action tamsulosin 0.4 mg capsule 0.4 mg PO DAILY Qty: 30 RF: 0 amlodipine 5 mg tablet 5 mg PO DAILY RF: 0 losartan-hydrochlorothiazide 50-12.5 mg tablet 0.5 tab PO DAILY RF: 0 allopurinol 100 mg tablet 200 mg PO DAILY Qty: 180 RF: 3 pantoprazole 40 mg tablet,delayed release (DR/EC) 40 mg PO HS Qty: 90 RF: 3 Eliquis 2.5 mg tablet 2.5 mg PO BID Qty: 180 RF: 0 potassium 99 mg Tablet 99 mg PO QAM RF: 0 atorvastatin 80 mg tablet 80 mg PO HS RF: 0 aspirin 81 mg Tablet,Delayed Release (Dr/Ec) 81 mg PO QAM RF: 0 B-complex with vitamin C [Super B Complex-Vitamin C] Tablet 1 tab PO QAM RF: 0 cholecalciferol (vitamin D3) [Vitamin D3] 1,000 unit capsule 5,000 units PO QAM RF: 0 nitroglycerin [Nitrostat] 0.4 mg tablet, sublingual 0.4 mg Sublingual Q5M PRN (Reason: chest pain) RF: 0
[2020-07-16] MEDS ORDERED: OPTIRAY 320 125ml IV ONE (11:00)
--- NOTE | 2020-07-16 11:21 | CT Scan Report ---
CT ANGIOGRAM OF THE CHEST CLINICAL HISTORY: Right-sided chest pain. Possible pulmonary embolism. COMPARISON STUDY: Noncontrast chest CT dated 03/12/2020 TECHNIQUE: Following the IV administration of 119 mL of Optiray-320, CT angiogram of the thorax was p erformed from the thoracic inlet to the lung bases utilizing the pulmonary embolus protocol. Images a re reviewed in the axial, sagittal, and coronal planes. IV contrast was administered without complica tion. MIP imaging was performed. A dose lowering technique was utilized adhering to the principles o f ALARA. CT DOSE: 401.45 mGy.cm FINDINGS: There is a small hiatal hernia Mediastinal and hilar lymph nodes are the upper limits of normal in size. The ascending thoracic aorta measures 35 mm the level of the main pulmonary artery. 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 Atheromatous changes are present within the descending thoracic aorta. There were no pulmonary artery filling defects to indicate acute pulmonary embolism. There are trace pleural effusions There is no focal pulmonary consolidation. There is mild lower lobe bronchial wall thickening. There are minor dependent atelectatic changes. There is a stable 6 mm solid nodule within the right upper l obe as visualized image #[id number]. There is an irregularly marginated 8 mm left upper lobe pulmonary n odule containing a central calcification. This remains unchanged. IMPRESSION: 1. No evidence of acute pulmonary embolism. 2. 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 3. Stable 6 mm solid right upper lobe pulmonary nodule. Stable irregular marginated 8 mm left upper l obe pulmonary nodule. 4. Trace pleural effusions. ACT 112: Negative or not required by law. Electronically signed by: Hoang Wood M.D. 07/16/2020 11:19 AM
[2020-07-16] MEDS ORDERED: NITROGLYCERIN 2% OINTMENT 30GM TUBE EXT STA (12:48)
[2020-07-16] MEDS ORDERED: MoRPHine SULFATE 2 MG/ML CARP IV STA (12:48)
--- NOTE | 2020-07-16 14:05 | History & Physical Report ---
Date of Service July 16, 2020 Assessment & Plan (1) Atypical chest pain: Patient's pain that he has now, is reproducible however with his increase in troponin and significant diseas, will need to be followed - Closely followed as outpatient and has opted for medical management with his board certified arts therapist unless life-threatening ischemia or injury - Continue nitropaste while trending troponin - cardiology consulted to follow and risk stratify options as well as optimize any medications that we are able to. He has recently had an adverse reaction to Renexa - His HR is chronically low with Afib and hence has not been on BB, however may benefit small dose if his HR >65. Appreciate cardiology recs - Trend troponin Q6 with ECG - Continue ASA, high dose statin, ARB and CCB. - IF BP becomes elevated consider oral nitrate. (2) Ischemic cardiomyopathy: As above - Recent ECHO in 07/05/20- moderate LV systolic dysfunction, mild bi-V dilation, moderate MR, mild TR. EF 40-45% - Trend troponin- risk and benefit approach with patient (3) CAD (coronary artery disease): Patient with CABG in 1985 and multiple areas of stenosis, LAD, proximal circ, left circ first and second marginal, stents to the RCA - Continue as above, already optimized for HTN, HLD, and rate controlled. (4) Atrial fibrillation: Patient chronically bradycardic 40-50's - Continue on CCB - Continue Eliquis - No acute needs (5) Dyslipidemia: Continue statin - recheck lipids in the morning (6) Solitary pulmonary nodule: Followed with pulmonary already as outpatient - Continue screenings- no acute needs - previous smoker that quit in 1985 (7) FIGUEROA (dyspnea on exertion): Likely strongly related to his heart disease. However, he has no orthopnea - failed renexa - optimize as above (8) Chronic kidney disease, stage 3: - BUN and RECORDER HELPER GRAVITY PROSPECTING remain stable - Control BP and lipids - Avoid any nephrotoxic agents, and if needed minimize duration of exposure (9) Hypertension: Continue current therapy as above- oral nitrate if needed (10) Renal artery stenosis: As above- BP currently well controlled - last imaging 2019 (11) Peripheral arterial disease: As above, optimize BP, lipids. - patient is actively walking and has stopped smoking - No acute needs, follow as outpatient (12) Carotid artery stenosis: 70% of right internal carotid 50-69% left internal carotid artery >50% stenosis of the external cartoids bilaterally last imaged 2018 No acute needs and/or symptoms at this time - Continue to optimize lipids, BP, and ASA (13) Elevated alkaline phosphatase level: Chronic in nature with normal liver enzymes and mild chronic elevation of bilirubin - Patient has had negative UL of liver in the past. No acute interventions History of Present Illness Primary Care Provider: Bi Meier MD 85 YOM with past medical history of Fatigue, CAD with CABG x3 35 years ago, RCA stent, HTN, NORRIS, HLD, Afib on Eliquis, splenic thrombus, cholecystectomy, AAA with repair, left renal artery bypass, left femoral bypass graft, bilateral carotid artery stenosis, GI bleed. Patient with significant vascular disease and cardiac disease history. Who is closely followed by his Fire Alarm Installer Dr. Rodas and has opted for medical management of his cardiac disease. He came to the emergency room today for complaint of right sided chest pain that he noticed got worse while raising his arm to get medicine out of his cabinet. This pain is not as his normal cardiac pain that he gets. His normal cardiac pain is in the center of his chest. His pain today was also NOT associated with any diaphoresis, dyspnea or breathlessness, nausea or vomiting. Does endorse carrying a case of water in from outside yesterday, but again he did not notice any increase in work of breathing or chest pain at that time. This pain is reproducible. He was evaluated in the emergency room with a CT scan of the chest, ECG and laboratory assessment. He had a second troponin drawn 3 hours apart that went from 0.024 up to 0.163 with incomplete left bundle block and no dynamic STEMI changes some twave changes. Patient will be observed for trending troponin and ECG, medication review and titration, and consultation with cardiology. Allergies Allergy/AdvReac Type Severity Reaction Status Date / Time prazosin AdvReac Intermediate HYPOTENSION Verified 07/16/20 09:59 ranolazine AdvReac Intermediate Dizziness Verified 07/16/20 09:59 Home Medications Medication Instructions Recorded Confirmed Type B-complex with vitamin C [Super B 1 tab PO QAM 06/15/18 07/16/20 History Complex-Vitamin C] aspirin 81 mg PO QAM 06/15/18 07/16/20 History atorvastatin 80 mg PO HS 06/15/18 07/16/20 History potassium 99 mg PO QAM 06/21/18 07/16/20 History apixaban 2.5 mg tablet 2.5 mg PO BID #180 tab 12/14/18 07/16/20 History cholecalciferol (vitamin D3) 25 5,000 units PO QAM cap 12/14/18 07/16/20 History mcg (1,000 unit) capsule pantoprazole 40 mg tablet,delayed 40 mg PO HS #90 tab 02/11/19 07/16/20 Rx release nitroglycerin 0.4 mg sublingual 0.4 mg SUBLINGUAL Q5M PRN tab 02/22/19 07/16/20 History tablet tamsulosin 0.4 mg capsule 0.4 mg PO DAILY #30 cap 04/13/19 07/16/20 Rx allopurinol 100 mg tablet 200 mg PO DAILY #180 tab 06/02/19 07/16/20 Rx losartan 50 mg-hydrochlorothiazide 0.5 tab PO DAILY 12/19/19 07/16/20 History 12.5 mg tablet amlodipine 5 mg tablet 5 mg PO DAILY 03/13/20 07/16/20 History Past Med/Surg History Medical History Anemia Atrial fibrillation CAD (coronary artery disease) Chronic kidney disease, stage 3 Hypertension Ischemic cardiomyopathy Peripheral arterial disease Renal artery stenosis (11/23/12) Splenic infarct Vitamin D deficiency Surgical History History of cholecystectomy History of endovascular stent graft for abdominal aortic aneurysm (AAA) Hx of heart bypass surgery Family History Father No problems noted. Mother Myocardial infarction Brother Myocardial infarction Other Coronary heart disease Denies family history of Ovarian cancer Prostate cancer Breast cancer Colorectal cancer Social History Smoking Status: Former smoker Second Hand Exposure: Yes; Hx Alcohol Use: No Hx Substance Use: No Preferred Language: Czech Communication Ability: Effective Visual Impairment: No Limitations Hearing Ability: Normal marital status: / current occupational status: retired Feels Safe at Home: Yes Dental Care, Regularly: Yes Physical Activity Frequency: Does not Exercise Seatbelt Use: always Review of Systems Review of Systems: REVIEW OF SYSTEMS: Constitutional: No fever, sweats or chills Eyes: No diplopia, no worsening or blurred vision ENT: normal hearing, no trouble swallowing Respiratory: (+) on exertion, (-) cough, sputum, dyspnea at rest or Cardiovascular: (+) chest pain, tightness or palpitations Abdomen: No pain, nausea, vomiting, diarrhea or constipation Musculoskeletal: No joint pain, calf pain, swelling Neurologic: No weakness, numbness/tingling, or balance problems Psychiatric: No anxiety or depression Skin: No rash or itch Physical Exam Physical Exam: PHYSICAL EXAM: General: awake, alert, no apparent distress Head: Normocephalic, atraumatic ENT: PERRL, EOMI, no pharyngeal exudate, mucous membranes moist Neuro: AAO x 3, speech clear and appropriate, strength intact bilaterally 5/5, sensation intact and equal all extremities and dermatomes, no pronator drift Chest: equal rise and fall of the chest, no accessory muscle use, no heaves or thrills, Clear to auscultation, on room air, reproducible pain on right chest 3-4 intercostal. Cardiac: Irregular rate and rhythm, telemetry reviewed, skin warm dry, cap refill <3 seconds, peripheral pulses +2 no JVD, grade II systollic murmur, no edema, no bruit GI: NABS x 4 quadrants, soft, nontender to palpation, no rebound, guarding or tenderness : Spontaneously voiding, no pain, no CVA tenderness, Extremities: Normal inspection, no peripheral edema or erythema, calfs nont adonis to palpation Psych: Normal mood and affect Skin: no rash or erythema Results & Data Results & Data ([facility]) Vital Signs (Past 12 Hours) Vital Signs Temp Pulse Pulse Resp BP BP Pulse Ox 07/16/20 13:00 65 16 151/90 H 97 07/16/20 12:50 60 16 96 07/16/20 12:40 52 L 23 97 07/16/20 12:31 52 L 20 96 07/16/20 12:30 61 23 147/76 H 97 07/16/20 12:20 52 L 18 97 07/16/20 12:10 49 L 21 97 07/16/20 12:01 54 L 20 98 07/16/20 12:00 56 L 21 165/78 H 97 07/16/20 11:54 57 L 14 98 07/16/20 11:40 55 L 20 95 07/16/20 11:31 53 L 24 95 07/16/20 11:30 56 L 21 141/71 H 96 07/16/20 11:20 63 23 95 07/16/20 11:15 59 L 18 166/68 H 96 07/16/20 11:10 67 11 L 96 07/16/20 11:09 60 13 166/68 H 96 07/16/20 11:08 56 L 11 L 07/16/20 10:50 57 L 20 95 07/16/20 10:40 56 L 21 96 07/16/20 10:31 48 L 22 95 07/16/20 10:30 48 L 21 155/65 H 97 07/16/20 10:20 52 L 23 96 07/16/20 10:10 54 L 20 97 07/16/20 10:00 56 L 18 160/73 H 96 07/16/20 09:50 52 L 21 97 07/16/20 09:40 58 L 13 97 07/16/20 09:31 57 L 16 97 07/16/20 09:30 55 L 14 172/73 H 97 07/16/20 09:20 58 L 15 97 07/16/20 09:13 53 L 15 97 07/16/20 09:06 53 L 12 165/89 H 98 07/16/20 08:57 36.2 C L 60 18 173/74 H 99 Laboratory Results Abnormal lab results 07/16/20 07/16/20 07/16/20 Range/Units 09:15 09:15 11:53 RBC 4.66 L (4.7-6.1) M/uL Hgb 13.6 L (14.0-18.0) g/dL Hct 40.0 L (42-52) % MPV 11.2 H (7.4-10.4) fL Neut # (Auto) 6.70 H (1.4-6.5) K/uL Chloride 108 H (98-107) mmol/L BUN 20 H (7-18) mg/dl Creatinine 1.58 H (0.6-1.4) mg/dl Glucose 116 H (70-99) mg/dl Total Bilirubin 1.6 H (0.2-1) mg/dl AST 11 L (15-37) U/L Alkaline Phosphatase 145 H (45-117) U/L Troponin I 0.163 H* (0-0.045) ng/ml Diagnostic Findings CT ANGIOGRAM OF THE CHEST CLINICAL HISTORY: Right-sided chest pain. Possible pulmonary embolism. COMPARISON STUDY: Noncontrast chest CT dated 03/12/2020 TECHNIQUE: Following the IV administration of 119 mL of Optiray-320, CT angiogram of the thorax was performed from the thoracic inlet to the lung bases utilizing the pulmonary embolus protocol. Images are reviewed in the axial, sagittal, and coronal planes. IV contrast was administered without complication. MIP imaging was performed. A dose lowering technique was utilized adhering to the principles of ALARA. CT DOSE: 401.45 mGy.cm FINDINGS: There is a small hiatal hernia Mediastinal and hilar lymph nodes are the upper limits of normal in size. The ascending thoracic aorta measures 35 mm the level of the main pulmonary artery. 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 Atheromatous changes are present within the descending thoracic aorta. There were no pulmonary artery filling defects to indicate acute pulmonary embolism. There are trace pleural effusions There is no focal pulmonary consolidation. There is mild lower lobe bronchial wall thickening. There are minor dependent atelectatic changes. There is a stable 6 mm solid nodule within the right upper lobe as visualized image #[id number]. There is an irregularly marginated 8 mm left upper lobe pulmonary nodule containing a central calcification. This remains unchanged. IMPRESSION: 1. No evidence of acute pulmonary embolism. 2. 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 3. Stable 6 mm solid right upper lobe pulmonary nodule. Stable irregular m arginated 8 mm left upper lobe pulmonary nodule. 4. Trace pleural effusions. XR chest 1V portable CLINICAL HISTORY: Atypical chest pain. COMPARISON STUDY: Chest CT March 12, 2020. FINDINGS: Lung volumes are normal. Lungs are clear. There is no pneumothorax or pleural effusion. Moderate cardiomegaly is unchanged. Mediastinal contours are normal. There is no evidence for pulmonary edema. Median sternotomy wires and clips from bypass grafting are noted. IMPRESSION: No acute cardiopulmonary findings. Cardiomegaly. CT SCAN OF THE CHEST WITHOUT IV CONTRAST CLINICAL HISTORY: Pulmonary nodule follow-up. COMPARISON STUDY: Chest CT scans dated 03/14/2019 and 06/21/2018. TECHNIQUE: CT scan of the thorax was performed from the thoracic inlet to the upper abdomen. Images are reviewed in the axial, sagittal, and coronal planes. IV contrast was not administered for this examination as per the referring clinician. A dose lowering technique was utilized adhering to the principles of ALARA. CT DOSE: 373.41 mGy.cm FINDINGS: Thyroid: Imaged portions of the thyroid gland are normal in size and heterogeneous in attenuation. Thoracic aorta: There is advanced atherosclerotic calcification of the thoracic aorta, which is normal in caliber and demonstrates standard 3-vessel arch anatomy. A saccular aneurysm arising from the inferior aspect of the aortic arch is unchanged. This measures up to 2.4 cm. Heart: The patient is status post midline sternotomy. The heart is enlarged and without pericardial effusion. The coronary arteries are densely calcified. Lungs and pleural spaces: Mild emphysematous change is noted. There is no airspace consolidation typical for pneumonia. Trace pleural effusions are identified. The trachea and central airways are clear. Foci of scarring/atelectasis are present bilaterally. Scattered calcified granulomas are observed. There is a 9 mm irregular calcification containing density in the left upper lobe within a region of parenchymal scarring seen on image #98. A 7 mm right upper lobe nodule on image #110 is also unchanged. No new pulmonary lesion is identified. Mediastinum: There are scattered subcentimeter mediastinal lymph nodes. These are not pathologically enlarged by size criteria. There are calcified prevascular nodes. Claudia: Not well assessed without IV contrast. Axillae: There is no axillary lymphadenopathy. Upper abdomen: There is a small hiatal hernia. Cholecystectomy clips are noted. There are calcified splenic granulomas. Skeletal structures: The skeletal structures are osteopenic. No lytic or blastic bony lesions are seen. Soft tissues: Gynecomastia is noted. IMPRESSION: 1. There is no airspace consolidation typical for pneumonia. 2. There is unchanged appearance of a calcification containing 9 mm irregular density within a region of parenchymal scarring in the left upper lobe. Although likely representing scarring, this remains pathologically indeterminant and continued follow-up is recommended to document at least 2 years of stability. See below. 3. Cardiomegaly and trace pleural effusions. 4. A 2.4 cm saccular aneurysm arising from the inferior aspect of the aortic arch is unchanged. 5. Additional findings as above. Medications Administered Home Medications B-complex with vitamin C [Super B Complex-Vitamin C] 1 tab PO QAM 06/15/18 [History Confirmed 07/16/20] aspirin 81 mg PO QAM 06/15/18 [History Confirmed 07/16/20] atorvastatin 80 mg PO HS 06/15/18 [History Confirmed 07/16/20] potassium 99 mg PO QAM 06/21/18 [History Confirmed 07/16/20] apixaban 2.5 mg tablet 2.5 mg PO BID #180 tab 12/14/18 [History Confirmed 07/16/20] cholecalciferol (vitamin D3) 25 mcg (1,000 unit) capsule 5,000 units PO QAM cap 12/14/18 [History Confirmed 07/16/20] pantoprazole 40 mg tablet,delayed release 40 mg PO HS #90 tab 02/11/19 [Rx Confirmed 07/16/20] nitroglycerin 0.4 mg sublingual tablet 0.4 mg SUBLINGUAL Q5M PRN tab 02/22/19 [History Confirmed 07/16/20] tamsulosin 0.4 mg capsule 0.4 mg PO DAILY #30 cap 04/13/19 [Rx Confirmed 07/16/20] allopurinol 100 mg tablet 200 mg PO DAILY #180 tab 06/02/19 [Rx Confirmed 07/16/20] losartan 50 mg-hydrochlorothiazide 12.5 mg tablet 0.5 tab PO DAILY 12/19/19 [History Confirmed 07/16/20] amlodipine 5 mg tablet 5 mg PO DAILY 03/13/20 [History Confirmed 07/16/20] Discontinued Medications Ioversol (Optiray 320 125ml) 119 ml IV ONCE ONE Stop: 07/16/20 11:01 Last Admin: 07/16/20 11:01 Dose: 119 ml Documented by: [id number] Morphine Sulfate (Morphine Sulfate 2 Mg/Ml Carp) 2 mg IV NOW STA Stop: 07/16/20 12:49 Last Admin: 07/16/20 13:12 Dose: 2 mg Documented by: [id number] Nitroglycerin (Nitroglycerin 2% Ointment 30gm Tube) 0.5 inch EXT NOW STA Stop: 07/16/20 12:49 Last Admin: 07/16/20 13:12 Dose: 0.5 inch Documented by: [id number] ECG Additional Comments: Atrial fibrillation with premature ventricular or aberrantly conducted complexes Incomplete left bundle block ST & T wave abnormality, Abnormal ECG When compared with ECG of 21-JUN-2018 11:26, Code Status & VTE Plan Code Status CODE: FULL VTE: SCDMaritaquis VTE Prophylaxis Plan VTE Prophylaxis will be ordered: Yes Supervising Physician Co-Signing Physician Notes Patient was seen and examined independently I discussed the case with Thang HOWELL I reviewed pertinent past medical social family history and also the plan of care and agree with the plan of care. Patient has atypical right-sided chest pain however did have an elevation of troponin after the second recheck in the emergency department without acute current of injury noted on his EKG. Patient will be retained facility for serial troponins and management of his symptoms. Patient is known to have previous ischemic cardiomyopathy and likely will be a medical management candidate I did see the patient independently in emergency department he was having no new heart murmurs he was not in overt heart failure he did have some very minor lower extremity edema. Cardiology was contacted for evaluation of medical management suggestions for this patient as he typically runs fairly low heart rate and addition of beta- blockers may be related with more symptoms that affect. Any exceptions will be noted below PG Care Time/CCT Total # of Minutes Spent Total Time Spent with Patient: Total time spent is greater than 50% in coordination of care (as documented) at patient's floor/unit and/or counseling patient: Coding Level of Care Code 60242 OBS Care - Level 3 Diagnoses Atypical chest pain R07.89 Ischemic cardiomyopathy I25.5 CAD (coronary artery disease) I25.709 Associated angina: with unspecified angina Coronary Disease-Associated Artery/Lesion type: bypass graft [place] vs. transplanted heart: [place] heart Atrial fibrillation I48.21 Atrial fibrillation type: permanent Dyslipidemia E78.5 Solitary pulmonary nodule R91.1 FIGUEROA (dyspnea on exertion) R06.00 Chronic kidney disease, stage 3 N18.32 Chronic kidney disease stage 3 subtype: stage 3b (GFR 30-44) Hypertension I10 Hypertension type: essential hypertension Renal artery stenosis I70.1 Peripheral arterial disease I73.9 Carotid artery stenosis I65.23 Laterality: bilateral Elevated alkaline phosphatase level R74.8 (1) Carotid artery stenosis Laterality: bilateral Qualified Code(s): I65.23 - Occlusion and stenosis of bilateral carotid arteries (2) Chronic kidney disease, stage 3 Chronic kidney disease stage 3 subtype: stage 3b (GFR 30-44) Qualified Code(s): N18.32 - Chronic kidney disease, stage 3b (3) CAD (coronary artery disease) Associated angina: with unspecified angina Coronary Disease-Associated Artery/Lesion type: bypass graft [place] vs. transplanted heart: [place] heart Qualified Code(s): I25.709 - Atherosclerosis of coronary artery bypass graft(s), unspecified, with unspecified angina pectoris (4) Atrial fibrillation Atrial fibrillation type: permanent Qualified Code(s): I48.21 - Permanent atrial fibrillation (5) Hypertension Hypertension type: essential hypertension Qualified Code(s): I10 - Essential (primary) hypertension
[2020-07-16 14:15] LABS: Influenza A virus by PCR Negative (Neg); Influenza B virus by PCR Negative (Neg); RSV by PCR Negative (Neg); SARS CoV2 RNA(COVID-19) InHosp NEGATIVE (Negative)
--- NOTE | 2020-07-16 16:14 | Electrocardiogram Report ---
Test Reason : Blood Pressure : / mmHG Vent. Rate : 061 BPM Atrial Rate : 064 BPM P-R Int : 000 ms QRS Dur : 114 ms QT Int : 454 ms P-R-T Axes : 000 044 119 degrees QTc Int : 457 ms Atrial fibrillation with premature ventricular or aberrantly conducted complexes Abnormal ECG When compared with ECG of 21-JUN-2018 11:26, Borderline criteria for Anterior infarct are no longer Present Confirmed by Hugo De La Torre ([id number]) on 07/16/2020 4:14:15 PM Referred By: REFERRED SELF Confirmed By:Juan Miguel De La Torre
[2020-07-16] MEDS ORDERED: POLYETHYLENE (MIRALAX) 17 GM PACK PO PRN (16:45)
[2020-07-16] MEDS ORDERED: ACETAMINOPHEN 325 MG TAB PO PRN (16:45)
[2020-07-16] MEDS ORDERED: ONDANSETRON INJ 2 MG/ML 2 ML VIAL IV PRN (16:45)
--- NOTE | 2020-07-16 17:21 | Cardiology Consultation ---
Date of Consultation July 16, 2020 Assessment & Plan (1) Atypical chest pain: It seems unlikely that his symptoms are related to cardiac ischemia. Is quite atypical in location. There is a reproducible component. It was exacerbated by lying on the right side movement of the right arm initially. There is no evidence of aortic dissection or pulmonary embolus on CT scan. The symptoms themselves have not abated despite use of nitroglycerin. I think this is likely musculoskeletal. I think we will try some narcotics for relief. He has had other admissions for atypical chest pain. One occasion he was noted to have splenic infarct and nonbleeding gastric ulcers. I think we have to maintain a high level of suspicion for noncardiac causes of his symptoms. (2) Ischemic cardiomyopathy: He was recently discovered to have reduced LV systolic function. This could account for some of his symptoms with activity. He is on losartan and this could cautiously be increased monitoring his blood pressure and renal function closely. This could be changed in the outpatient setting. Beta- blockade would also be beneficial from the standpoint of his reduced LV function. However he does have an element of bradycardia at baseline which likely precludes its use at this time. He did not endorse orthopnea or paroxysmal nocturnal dyspnea. I do not believe there is any need for diuresis currently. (3) CAD (coronary artery disease): He is known to have fairly severe coronary artery disease. He underwent 3 vessel bypass quite remotely. His last catheterization was over 15 years ago. At that time he was noted to have occlusion of the circumflex and right coronary grafts. He underwent percutaneous intervention to the graft involving the RCA. He had significant disease in several diagonal branches of the LAD as well. Given his renal function and peripheral arterial disease he is at higher risk of complication from coronary angiography or percutaneous intervention. After discussing this with the patient and reviewing his outpatient records it seems that in an emergent situation he would consent to angiography, but otherwise we will attempt more aggressive medical therapy if necessary for symptoms of coronary disease. Continue outpatient medical management with aspirin, apixaban and atorvastatin. (4) Atrial fibrillation: Permanent. Adequate rate control without rate control medications. This suggests an element of AV node dysfunction. He is on appropriate anticoagulation dosed according to his age and renal function. Present on Admission?: Yes (5) Peripheral arterial disease: Prior abdominal aortic aneurysm repair and left renal artery bypass in 2007. (6) Elevated troponin: Unclear etiology. I do not believe his current symptoms are likely ischemia related. He is known to have severe coronary disease and could have ischemia under other circumstances not related to an acute coronary syndrome. With his degree of renal dysfunction we could see mild elevations even in the setting of significant hypertension. Will continue to monitor the trend overnight. My enthusiasm for any invasive evaluation of his coronary disease is quite limited. History of Present Illness Reason for Consultation: Chest pain, elevated troponin Requesting Physician: Victoriano Attending Physician: Dylan Pastrana MD History of Present Illness The patient is a 85-year-old gentleman with an extensive history of vascular disease to include coronary artery stenosis, prior bypass surgery, prior percutaneous intervention, vascular surgery involving the aorta and iliacs, aortic arch aneurysm, chronic renal insufficiency, permanent atrial fibrillationWho presented to the emergency room for evaluation of chest pain. Patient states that he awoke this morning and felt uncomfortable in the right precordium. He also had some symptoms close to the right axilla. This was described as a deep ache. It did not involve a pleuritic component. It did seem to be slightly worse when lying on the right side. When the patient used his right arm to grab some medicines, the symptoms worsened. Activity did not seem to worsen his symptoms. However, he did notice worsening with a wheelchair I had to the CT scanner that involve several bumps. His symptoms did not involve any radiation to the back or neck. He did not have any associated dyspnea. No gastrointestinal symptoms. No sense of palpitation. The patient has not had classic angina for many years. He seems to remember a sensation of paresthesias in the precordium that was quite distinct from the symptoms he experienced today. He has been noticing more dyspnea on exertion over the past 2 months. A trial of ranolazine in the outpatient setting resulted in dizziness but no resolution of his symptoms. He has been able to maintain his normal activity, and has few symptoms with mild exertion. Did not describe orthopnea or paroxysmal nocturnal dyspnea. Very rare sensation of palpitations when lying in bed at nighttime. Generally no dizziness or lightheadedness. Rarely when sitting for a long time and standing rapidly. No history of syncope. Currently continues to have some symptom of discomfort in the right axillary and mid right chest. He describes it is fairly deep in location. There is some discomfort to palpation on examination. No change with nitroglycerin placed topically. Perhaps some minor improvement with intravenous morphine in the emergency room. Allergies Allergy/AdvReac Type Severity Reaction Status Date / Time prazosin AdvReac Intermediate HYPOTENSION Verified 07/16/20 09:59 ranolazine AdvReac Intermediate Dizziness Verified 07/16/20 09:59 Home Medications Medication Instructions Recorded Confirmed Type B-complex with vitamin C [Super B 1 tab PO QAM 06/15/18 07/16/20 History Complex-Vitamin C] aspirin 81 mg PO QAM 06/15/18 07/16/20 History atorvastatin 80 mg PO HS 06/15/18 07/16/20 History potassium 99 mg PO QAM 06/21/18 07/16/20 History apixaban 2.5 mg tablet 2.5 mg PO BID #180 tab 12/14/18 07/16/20 History cholecalciferol (vitamin D3) 25 5,000 units PO QAM cap 12/14/18 07/16/20 History mcg (1,000 unit) capsule pantoprazole 40 mg tablet,delayed 40 mg PO HS #90 tab 02/11/19 07/16/20 Rx release nitroglycerin 0.4 mg sublingual 0.4 mg SUBLINGUAL Q5M PRN tab 02/22/19 07/16/20 History tablet tamsulosin 0.4 mg capsule 0.4 mg PO DAILY #30 cap 04/13/19 07/16/20 Rx allopurinol 100 mg tablet 200 mg PO DAILY #180 tab 06/02/19 07/16/20 Rx losartan 50 mg-hydrochlorothiazide 0.5 tab PO DAILY 12/19/19 07/16/20 History 12.5 mg tablet amlodipine 5 mg tablet 5 mg PO DAILY 03/13/20 07/16/20 History Patient History Medical History Anemia Atrial fibrillation CAD (coronary artery disease) Chronic kidney disease, stage 3 Hypertension Ischemic cardiomyopathy Peripheral arterial disease Renal artery stenosis (11/23/12) Splenic infarct Vitamin D deficiency Surgical History History of cholecystectomy History of endovascular stent graft for abdominal aortic aneurysm (AAA) Hx of heart bypass surgery Family History Father No problems noted. Mother Myocardial infarction Brother Myocardial infarction Other Coronary heart disease Denies family history of Ovarian cancer Prostate cancer Breast cancer Colorectal cancer Social History Smoking Status: Former smoker Second Hand Exposure: No; Do You Dip or Chew Tobacco: No; Hx Alcohol Use: No Hx Substance Use: No Preferred Language: Beninese Communication Ability: Effective Visual Impairment: No Limitations Hearing Ability: Normal Beliefs That Will Affect Care: None marital status: / Current Living Situation: Alone current occupational status: retired Other Information That Helps Us Care for You: No Feels Safe at Home: Yes Safety Concerns: Feels Safe At This Time Dental Care, Regularly: Yes Physical Activity Frequency: Does not Exercise Seatbelt Use: always Assistive Devices: None Review of Systems Review of Systems: All systems reviewed & are unremarkable except as noted in HPI & below No recent gastrointestinal disturbance. No recent fevers or chills. No swelling in lower extremities. No claudication with ambulation. Physical Exam Physical Exam: The patient is alert and oriented. Mood and affect appeared normal. He answered all questions appropriately. HEENT: Pupils are equal and reactive to light and accommodation. Extraocular movements are intact. The sclerae are anicteric. Neuro: Cranial nerves intact (wearing mask) Neck: Patient's neck is supple. He has palpable carotid pulses bilaterally without bruits on auscultation. There is no evidence of jugular venous distention. The thyroid is not enlarged. Lungs: Clear to auscultation bilaterally. He has good air movement without use of accessory muscles. No rales wheezes or rhonchi. Cardiac: Heart demonstrates an irregular rhythm. Normal rate. Normal S1 and S2. No murmurs on examination. Chest: Some tenderness to palpation close to the right axilla. Well-healed sternotomy scar. Pulses: The patient has palpable radial pulses bilaterally that are equal in intensity Extremities: There was no evidence of hypoperfusion. There is no cyanosis or clubbing. There is no edema. Skin: I did not appreciate any rashes on examination today. Results & Data ([facility]) Vital Signs (Past 12 Hours) Vital Signs Temp Pulse Pulse Resp BP BP Pulse Ox 07/16/20 16:07 59 L 14 134/80 96 07/16/20 15:58 59 L 14 134/80 96 07/16/20 14:10 56 L 14 96 07/16/20 14:01 53 L 19 147/80 H 95 07/16/20 14:00 55 L 23 95 07/16/20 13:50 57 L 20 96 07/16/20 13:40 59 L 17 96 07/16/20 13:31 53 L 19 96 07/16/20 13:30 53 L 20 155/70 H 95 07/16/20 13:20 53 L 16 96 07/16/20 13:10 57 L 20 97 07/16/20 13:01 61 18 96 07/16/20 13:00 53 L 65 20 151/90 H 151/90 H 95 07/16/20 12:50 60 16 96 07/16/20 12:40 52 L 23 97 07/16/20 12:31 52 L 20 96 07/16/20 12:30 61 23 147/76 H 97 07/16/20 12:20 52 L 18 97 07/16/20 12:10 49 L 21 97 07/16/20 12:01 54 L 20 98 07/16/20 12:00 56 L 21 165/78 H 97 07/16/20 11:54 57 L 14 98 07/16/20 11:40 55 L 20 95 07/16/20 11:31 53 L 24 95 07/16/20 11:30 56 L 21 141/71 H 96 07/16/20 11:20 63 23 95 07/16/20 11:15 59 L 18 166/68 H 96 07/16/20 11:10 67 11 L 96 07/16/20 11:09 60 13 166/68 H 96 07/16/20 11:08 56 L 11 L 07/16/20 10:50 57 L 20 95 07/16/20 10:40 56 L 21 96 07/16/20 10:31 48 L 22 95 07/16/20 10:30 48 L 21 155/65 H 97 07/16/20 10:20 52 L 23 96 07/16/20 10:10 54 L 20 97 07/16/20 10:00 56 L 18 160/73 H 96 07/16/20 09:50 52 L 21 97 07/16/20 09:40 58 L 13 97 07/16/20 09:31 57 L 16 97 0322/21 09:30 55 L 14 172/73 H 97 07/16/20 09:20 58 L 15 97 07/16/20 09:13 53 L 15 97 07/16/20 09:06 53 L 12 165/89 H 98 07/16/20 08:57 36.2 C L 60 18 173/74 H 99 Laboratory Results Abnormal Lab Results 07/16/20 07/16/20 07/16/20 09:15 09:15 11:53 WBC 8.74 RBC 4.66 L Hgb 13.6 L Hct 40.0 L MCV 85.8 MCH 29.2 MCHC 34.0 RDW Std Deviation 45.4 RDW Coeff of Ari 14.5 Plt Count 236 MPV 11.2 H Immature Gran % (Auto) 0.2 Neut % (Auto) 76.6 Lymph % (Auto) 14.0 [place] % (Auto) 6.8 Eos % (Auto) 2.2 Baso % (Auto) 0.2 Neut # (Auto) 6.70 H Lymph # (Auto) 1.22 [place] # (Auto) 0.59 Eos # (Auto) 0.19 Baso # (Auto) 0.02 Immature Gran # (Auto) 0.02 Sodium 140 Potassium 4.2 Chloride 108 H Carbon Dioxide 25 Anion Gap 7.0 BUN 20 H Creatinine 1.58 H Est Cr Clr Drug Dosing 38.3 Est GFR ( Amer) 46.2 Est GFR (Non-Af Amer) 39.9 BUN/Creatinine Ratio 12.7 Glucose 116 H Calcium 9.2 Total Bilirubin 1.6 H AST 11 L ALT 18 Alkaline Phosphatase 145 H Troponin I 0.024 0.163 H* Total Protein 7.5 Albumin 3.8 Globulin 3.7 Albumin/Globulin Ratio 1.0 Lipase 160 COVID-19 Eval Order SARS-CoV-2 (PCR) Influenza Type A (PCR) Influenza Type B (PCR) RSV (RT-PCR) 07/16/20 07/16/20 13:15 13:15 WBC RBC Hgb Hct MCV MCH MCHC RDW Std Deviation RDW Coeff of Ari Plt Count MPV Immature Gran % (Auto) Neut % (Auto) Lymph % (Auto) [place] % (Auto) Eos % (Auto) Baso % (Auto) Neut # (Auto) Lymph # (Auto) [place] # (Auto) Eos # (Auto) Baso # (Auto) Immature Gran # (Auto) Sodium Potassium Chloride Carbon Dioxide Anion Gap BUN Creatinine Est Cr Clr Drug Dosing Est GFR ( Amer) Est GFR (Non-Af Amer) BUN/Creatinine Ratio Glucose Calcium Total Bilirubin AST ALT Alkaline Phosphatase Troponin I Total Protein Albumin Globulin Albumin/Globulin Ratio Lipase COVID-19 Eval Order CovFluRsv at [facility] SARS-CoV-2 (PCR) NEGATIVE Influenza Type A (PCR) Negative Influenza Type B (PCR) Negative RSV (RT-PCR) Negative Diagnostic Findings Chest CT at the time of admission did not reveal any pulmonary embolus. 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 Echocardiogram performed 07/05/2020: Moderate LV systolic dysfunction with ejection fraction of 40%. Mild biventricular dilation. Moderate biatrial dilation. Mild valvular aortic stenosis and moderate mitral regurgitation. EKG obtained the time admission revealed atrial fibrillation with frequent ventricular ectopy versus aberrant conduction. Nonspecific ST and T-wave changes. PG Care Time/CCT Total # of Minutes Spent Total Time Spent with Patient: Total time spent is greater than 50% in coordination of care (as documented) at patient's floor/unit and/or counseling patient: Coding Level of Care Code 64275 Initial Inpt Care Lvl 3 Diagnoses Atypical chest pain R07.89 Ischemic cardiomyopathy I25.5 CAD (coronary artery disease) I25.709 Associated angina: with unspecified angina Coronary Disease-Associated Artery/Lesion type: bypass graft [place] vs. transplanted heart: [place] heart Atrial fibrillation I48.21 Atrial fibrillation type: permanent Peripheral arterial disease I73.9 Elevated troponin R77.8 (1) CAD (coronary artery disease) Associated angina: with unspecified angina Coronary Disease-Associated Artery/Lesion type: bypass graft [place] vs. transplanted heart: [place] heart Qualified Code(s): I25.709 - Atherosclerosis of coronary artery bypass graft(s), unspecified, with unspecified angina pectoris (2) Atrial fibrillation Atrial fibrillation type: permanent Qualified Code(s): I48.21 - Permanent atrial fibrillation
[2020-07-16] MEDS ORDERED: ENOXAPARIN INJ 40 MG/0.4 ML SYR SQ SCH (18:00)
[2020-07-16] MEDS ORDERED: NITROGLYCERIN 2% OINTMENT 30GM TUBE EXT SCH (18:00)
[2020-07-16] MEDS: MoRPHine SULFATE 2 MG/ML CARP IV PRN (18:08)
[2020-07-16] MEDS ORDERED: Heparin IV Adult Wt-Based Standard *NO* Bolus Protocol IV SCH (19:40)
[2020-07-16] MEDS: NITROGLYCERIN SL 0.4 MG/TAB TAB SL PRN (20:07)
[2020-07-16] MEDS ORDERED: APIXABAN 2.5 MG TAB PO SCH (21:00)
[2020-07-16] MEDS ORDERED: PANTOprazole 40 MG TAB PO SCH (21:00)
[2020-07-16] MEDS: ATORVASTATIN 40 MG TAB PO SCH (21:18)
[2020-07-16] MEDS: HEPARIN SODIUM/DEXTROSE 25,000 UNITS/500 ML BAG IV SCH (21:51)
[2020-07-17] MEDS: NITROGLYCERIN SL 0.4 MG/TAB TAB SL PRN ×2 (02:08→04:30)
[2020-07-17] MEDS: MoRPHine SULFATE 2 MG/ML CARP IV PRN (02:11)
[2020-07-17 04:04] LABS: Basophils # (auto) 0.02 K/uL (0-0.2); Basophils % (auto) 0.2 %; Eosinophils # (auto) 0.14 K/uL (0-0.5); Eosinophils % (auto) 1.5 %; Hematocrit (blood only) 38.4 % (42-52); Hemoglobin 13.1 g/dL (14.0-18.0); Immature Granulocytes # (auto) 0.01 K/uL (0.00-0.02); Immature Granulocytes % (auto) 0.1 %; Lymphocytes # (auto) 1.01 K/uL (1.2-3.4); Lymphocytes % (auto) 10.8 %; Mean Corpuscular Hemoglobin 29.1 pg (25-34); Mean Corpuscular Hgb Conc 34.1 g/dL (32-36); Mean Corpuscular Volume 85.3 fL (80-100); Mean Platelet Volume 11.2 fL (7.4-10.4); Monocytes % (auto) 10.6 %; Neutrophils # (auto) 7.21 K/uL (1.4-6.5); Neutrophils % (auto) 76.8 %; Platelet Count 234 K/uL (130-400); RDW Coefficient of Variation 14.3 % (11.5-14.5); RDW Standard Deviation 44.7 fL (36.4-46.3); White Blood Count 9.39 K/uL (4.8-10.8)
[2020-07-17 04:22] LABS: Partial Thromboplastin Ratio 3.6
[2020-07-17 04:27] LABS: BUN Creatinine Ratio 15.2 (10-20); Calcium 8.4 mg/dl (8.5-10.1); Creatinine Clr Calc Pharmacy 40.1 ml/min; Est GFR (African American) 48.8; Est GFR (Non-African American) 42.1; Magnesium 1.4 mg/dl (1.8-2.4); Potassium 3.8 mmol/L (3.5-5.1)
[2020-07-17 04:28] LABS: Partial Thromboplastin Time 93.8 Seconds (21.0-31.0)
[2020-07-17 06:04] LABS: Estimated Average Glucose 137 mg/dl; Hemoglobin A1C 6.4 % (4.5-5.6)
[2020-07-17] MEDS ORDERED: FAMOTIDINE 40 MG TABLET PO ONE (06:17)
[2020-07-17] MEDS: MAGNESIUM SULFATE / D5W 1 GM/100 ML BAG IV SCH ×3 (06:20→10:40)
[2020-07-17] MEDS: amLODIPine BESYLATE 5 MG TAB PO SCH (08:33)
[2020-07-17] MEDS: CHOLECALCIFEROL 1,000 UNITS 25 MCG TAB PO SCH (08:33)
[2020-07-17] MEDS: LOSARTAN/HCTZ 50/12.5MG TAB PO SCH (08:33)
[2020-07-17] MEDS: ASPIRIN 81 MG ECTAB PO SCH (08:33)
[2020-07-17] MEDS: TAMSULOSIN HCL 0.4 MG CAP PO SCH (08:33)
[2020-07-17] MEDS ORDERED: CALCIUM CARBONATE 500 MG CHEWABLE TAB PO PRN (10:47)
[2020-07-17] MEDS ORDERED: CLOPIDOGREL BISULFATE 300 MG TAB PO STA (12:06)
[2020-07-17 12:58] LABS: Partial Thromboplastin Ratio 3.2
[2020-07-17 13:36] LABS: Partial Thromboplastin Time 84.4 Seconds (21.0-31.0)
--- NOTE | 2020-07-17 13:36 | Cardiology Progress Note ---
Date of Service July 17, 2020 Assessment & Plan (1) Atypical chest pain: The pain which prompted his initial admission was not likely cardiac in nature. This continues to bother him with movement of the right arm. (2) Ischemic cardiomyopathy: He was recently discovered to have reduced LV systolic function. He will continue losartan. If we evaluate his coronary arteries, he may benefit from revascularization. (3) CAD (coronary artery disease): Severe. Status post surgical revascularization quite remotely. Continue outpatient medical management with aspirin, apixaban and atorvastatin. (4) Atrial fibrillation: Permanent. Adequate rate control without rate control medications. This suggests an element of AV node dysfunction. oral Anticoagulation currently being held. On intravenous heparin (5) Peripheral arterial disease: Prior abdominal aortic aneurysm repair and left renal artery bypass in 2007. (6) Elevated troponin: He appears to have had an NSTEMI. Is not likely that his presenting symptoms were clearance representative of ischemia, but did appear to have a transition in symptoms over the course of the evening which would be more characteristic of ischemia. Certainly the rise in his biomarkers suggests an acute coronary syndrome. I did have discussion with the patient today regarding options for evaluation. He is notably hesitant to undergo angiography. However, this would be the general recommendation. He appears to have had an acute coronary s yndrome and I did discuss the potential for recurrent or perhaps more severe events. His main concern was contrast nephropathy or kidney damage. I mentioned that he has already received contrast for the CT scan performed at the time of his admission. His renal function appears to be stable. We did discuss alternatives which would include a noninvasive evaluation with echocardiography and possibly perfusion imaging. He was already treated with Plavix. We would add Plavix to his medical regimen. However, I did repeat that my recommendation was for coronary angiography. We will continue him on heparin this evening and I will discuss this again with him in the morning. Admission and Anticipated Discharge Date Admission Date: July 16, 2020 Subjective This morning patient claims to be feeling better. Seems over the course of the evening his presenting discomfort transitioned to a precordial pain. Is almost epigastric in location. He states that this bothered him throughout the evening but was relieved entirely after administration of Pepcid this morning. Currently without complaint. Still some mild discomfort around the right shoulder that he attributes to movement of the right arm. Review of Systems Review of Systems: Per HPI Physical Exam Physical Exam: The patient is alert and oriented. Mood and affect appeared normal. He answered all questions appropriately. HEENT: Pupils are equal and reactive to light and accommodation. Extraocular movements are intact. The sclerae are anicteric. Neuro: Cranial nerves intact Lungs: Clear to auscultation bilaterally. He has good air movement without use of accessory muscles. No rales wheezes or rhonchi. Cardiac: Heart demonstrates an irregular rhythm. Normal rate. Normal S1 and S2. No murmurs on examination. Chest: Some tenderness to palpation close to the right axilla. Well-healed sternotomy scar. Pulses: The patient has palpable radial pulses bilaterally that are equal in intensity Extremities: There was no evidence of hypoperfusion. There is no cyanosis or clubbing. There is no edema. Skin: I did not appreciate any rashes on examination today. Results & Data ([facility]) Vital Signs (Past 12 Hours) Vital Signs Temp Pulse Pulse Resp BP BP Pulse Ox 07/17/20 12:31 36.7 C 51 L 17 127/69 95 07/17/20 11:00 68 07/17/20 04:28 57 L 145/80 H 93 07/17/20 03:23 36.6 C 51 L 18 146/68 H 93 07/17/20 02:20 55 L 122/73 07/17/20 02:05 59 L 157/77 H 94 Laboratory Results Abnormal Lab Results 07/16/20 07/16/20 07/16/20 13:15 17:19 20:09 WBC RBC Hgb Hct MCV MCH MCHC RDW Std Deviation RDW Coeff of Ari Plt Count MPV Immature Gran % (Auto) Neut % (Auto) Lymph % (Auto) [place] % (Auto) Eos % (Auto) Baso % (Auto) Neut # (Auto) Lymph # (Auto) [place] # (Auto) Eos # (Auto) Baso # (Auto) Immature Gran # (Auto) APTT PTT Ratio Sodium Potassium Chloride Carbon Dioxide Anion Gap BUN Creatinine Est Cr Clr Drug Dosing Est GFR ( Amer) Est GFR (Non-Af Amer) BUN/Creatinine Ratio Glucose Estimat Average Glucose Hemoglobin A1c Calcium Magnesium Troponin I 1.920 H* 2.790 H* Triglycerides Cholesterol LDL Cholesterol, Calc VLDL Cholesterol, Calc HDL Cholesterol Cholesterol/HDL Ratio SARS-CoV-2 (PCR) NEGATIVE Influenza Type A (PCR) Negative Influenza Type B (PCR) Negative RSV (RT-PCR) Negative 07/16/20 07/17/20 07/17/20 23:34 03:46 03:46 WBC 9.39 RBC 4.50 L Hgb 13.1 L Hct 38.4 L MCV 85.3 MCH 29.1 MCHC 34.1 RDW Std Deviation 44.7 RDW Coeff of Ari 14.3 Plt Count 234 MPV 11.2 H Immature Gran % (Auto) 0.1 Neut % (Auto) 76.8 Lymph % (Auto) 10.8 [place] % (Auto) 10.6 Eos % (Auto) 1.5 Baso % (Auto) 0.2 Neut # (Auto) 7.21 H Lymph # (Auto) 1.01 L [place] # (Auto) 1.00 H Eos # (Auto) 0.14 Baso # (Auto) 0.02 Immature Gran # (Auto) 0.01 APTT PTT Ratio Sodium 139 Potassium 3.8 Chloride 108 H Carbon Dioxide 25 Anion Gap 6.0 BUN 23 H Creatinine 1.51 H Est Cr Clr Drug Dosing 40.1 Est GFR ( Amer) 48.8 Est GFR (Non-Af Amer) 42.1 BUN/Creatinine Ratio 15.2 Glucose 110 H Estimat Average Glucose Hemoglobin A1c Calcium 8.4 L Magnesium 1.4 L Troponin I 5.200 H* Triglycerides 65 Cholesterol 119 LDL Cholesterol, Calc 71 VLDL Cholesterol, Calc 13 HDL Cholesterol 35 Cholesterol/HDL Ratio 3 SARS-CoV-2 (PCR) Influenza Type A (PCR) Influenza Type B (PCR) RSV (RT-PCR) 07/17/20 07/17/20 07/17/20 03:46 03:46 06:48 WBC RBC Hgb Hct MCV MCH MCHC RDW Std Deviation RDW Coeff of Ari Plt Count MPV Immature Gran % (Auto) Neut % (Auto) Lymph % (Auto) [place] % (Auto) Eos % (Auto) Baso % (Auto) Neut # (Auto) Lymph # (Auto) [place] # (Auto) Eos # (Auto) Baso # (Auto) Immature Gran # (Auto) APTT 93.8 H* PTT Ratio 3.6 Sodium Potassium Chloride Carbon Dioxide Anion Gap BUN Creatinine Est Cr Clr Drug Dosing Est GFR ( Amer) Est GFR (Non-Af Amer) BUN/Creatinine Ratio Glucose Estimat Average Glucose 137 Hemoglobin A1c 6.4 H Calcium Magnesium Troponin I 10.200 H* Triglycerides Cholesterol LDL Cholesterol, Calc VLDL Cholesterol, Calc HDL Cholesterol Cholesterol/HDL Ratio SARS-CoV-2 (PCR) Influenza Type A (PCR) Influenza Type B (PCR) RSV (RT-PCR) PG Care Time/CCT Total # of Minutes Spent Total Time Spent with Patient: Total time spent is greater than 50% in coordination of care (as documented) at patient's floor/unit and/or counseling patient: Coding Level of Care Code 74762 Subseq Hosp Care Lvl 3 Diagnoses Atypical chest pain R07.89 Ischemic cardiomyopathy I25.5 CAD (coronary artery disease) I25.709 Associated angina: with unspecified angina Coronary Disease-Associated Artery/Lesion type: bypass graft [place] vs. transplanted heart: [place] heart Atrial fibrillation I48.21 Atrial fibrillation type: permanent Peripheral arterial disease I73.9 Elevated troponin R77.8 (1) CAD (coronary artery disease) Associated angina: with unspecified angina Coronary Disease-Associated Artery/Lesion type: bypass graft [place] vs. transplanted heart: [place] heart Qualified Code(s): I25.709 - Atherosclerosis of coronary artery bypass graft(s), unspecified, with unspecified angina pectoris (2) Atrial fibrillation Atrial fibrillation type: permanent Qualified Code(s): I48.21 - Permanent atrial fibrillation
--- NOTE | 2020-07-17 14:26 | Electrocardiogram Report ---
Test Reason : Blood Pressure : / mmHG Vent. Rate : 044 BPM Atrial Rate : 030 BPM P-R Int : 000 ms QRS Dur : 110 ms QT Int : 492 ms P-R-T Axes : 000 018 098 degrees QTc Int : 420 ms Atrial fibrillation with PVCs versus aberrant conduction Abnormal ECG When compared with ECG of 16-JUL-2020 09:05, Non-specific change in ST segment in Inferior leads Confirmed by Hugo De La Torre ([id number]) on 07/17/2020 2:25:56 PM Referred By: REFERRED SELF Confirmed By:Juan Miguel De La Torre
--- NOTE | 2020-07-17 14:27 | Electrocardiogram Report ---
Test Reason : Blood Pressure : / mmHG Vent. Rate : 054 BPM Atrial Rate : 030 BPM P-R Int : 000 ms QRS Dur : 116 ms QT Int : 490 ms P-R-T Axes : 000 017 239 degrees QTc Int : 464 ms Atrial fibrillation with slow ventricular response with premature ventricular or aberrantly conducted complexes Nonspecific ST and T wave abnormality Prolonged QT Abnormal ECG When compared with ECG of 16-JUL-2020 19:18, (unconfirmed) No significant change was found Confirmed by Hugo De La Torre ([id number]) on 07/17/2020 2:27:29 PM Referred By: REFERRED SELF Confirmed By:Juan Miguel De La Torre
--- NOTE | 2020-07-17 14:27 | Electrocardiogram Report ---
Test Reason : Blood Pressure : / mmHG Vent. Rate : 053 BPM Atrial Rate : 312 BPM P-R Int : 000 ms QRS Dur : 106 ms QT Int : 484 ms P-R-T Axes : 000 012 256 degrees QTc Int : 454 ms Atrial fibrillation with slow ventricular response with premature ventricular or aberrantly conducted complexes Nonspecific ST and T wave abnormality Abnormal ECG When compared with ECG of 16-JUL-2020 17:54, (unconfirmed) Non-specific change in ST segment in Inferior leads Nonspecific T wave abnormality now evident in Inferior leads Confirmed by Hugo De La Torre ([id number]) on 07/17/2020 2:27:00 PM Referred By: REFERRED SELF Confirmed By:Juan Miguel De La Torre
--- NOTE | 2020-07-17 14:30 | Electrocardiogram Report ---
Test Reason : Blood Pressure : / mmHG Vent. Rate : 048 BPM Atrial Rate : 340 BPM P-R Int : 000 ms QRS Dur : 104 ms QT Int : 490 ms P-R-T Axes : 000 049 -10 degrees QTc Int : 437 ms Atrial fibrillation with slow ventricular response and PVCs Nonspecific ST and T wave abnormality Abnormal ECG When compared with ECG of 16-JUL-2020 19:19, (unconfirmed) No significant change was found Confirmed by Hugo De La Torre ([id number]) on 07/17/2020 2:30:33 PM Referred By: REFERRED SELF Confirmed By:Juan Miguel De La Torre
--- NOTE | 2020-07-17 14:31 | Electrocardiogram Report ---
Test Reason : Blood Pressure : / mmHG Vent. Rate : 059 BPM Atrial Rate : 136 BPM P-R Int : 000 ms QRS Dur : 102 ms QT Int : 482 ms P-R-T Axes : 000 049 -82 degrees QTc Int : 477 ms Atrial fibrillation with PVCs versus aberrant conduction Nonspecific ST and T wave abnormality Prolonged QT Abnormal ECG Confirmed by Hugo De La Torre ([id number]) on 07/17/2020 2:31:01 PM Referred By: REFERRED SELF Confirmed By:Juan Miguel De La Torre
--- NOTE | 2020-07-17 14:32 | Electrocardiogram Report ---
Test Reason : Blood Pressure : / mmHG Vent. Rate : 052 BPM Atrial Rate : 051 BPM P-R Int : 000 ms QRS Dur : 112 ms QT Int : 492 ms P-R-T Axes : 000 040 246 degrees QTc Int : 457 ms Atrial fibrillation with slow ventricular response Nonspecific ST and T wave abnormality Abnormal ECG Confirmed by Hugo De La Torre ([id number]) on 07/17/2020 2:32:09 PM Referred By: REFERRED SELF Confirmed By:Juan Miguel De La Torre
--- NOTE | 2020-07-17 14:33 | Electrocardiogram Report ---
Test Reason : Blood Pressure : / mmHG Vent. Rate : 062 BPM Atrial Rate : 107 BPM P-R Int : 000 ms QRS Dur : 108 ms QT Int : 490 ms P-R-T Axes : 000 034 207 degrees QTc Int : 497 ms Atrial fibrillation with premature ventricular or aberrantly conducted complexes Nonspecific ST and T wave abnormality Prolonged QT Abnormal ECG When compared with ECG of 17-JUL-2020 03:24, (unconfirmed) No significant change was found Confirmed by Hugo De La Torre ([id number]) on 07/17/2020 2:33:33 PM Referred By: REFERRED SELF Confirmed By:Juan Miguel De La Torre
--- NOTE | 2020-07-17 14:39 | Electrocardiogram Report ---
Test Reason : Blood Pressure : / mmHG Vent. Rate : 054 BPM Atrial Rate : 202 BPM P-R Int : 000 ms QRS Dur : 114 ms QT Int : 502 ms P-R-T Axes : 000 009 -77 degrees QTc Int : 476 ms Atrial fibrillation with occasional aberrant conduction Abnormal ECG When compared with ECG of 17-JUL-2020 03:24, (unconfirmed) T wave inversion now evident in Inferior leads Confirmed by Hugo De La Torre ([id number]) on 07/17/2020 2:39:04 PM Referred By: REFERRED SELF Confirmed By:Juan Miguel De La Torre
--- NOTE | 2020-07-17 15:55 | Medical Student Progress Note ---
Date of Service July 17, 2020 Assessment & Plan (1) Elevated troponin: -Troponins 0.024 to 0.163 to 5.2 to 10.2 to most recently 7.48. It appears troponin has peaked and pain has resolved, so acute episode has likely passed. -Initial right sided chest pain is unlikely cardiac, but the epigastric pain from this morning which the pt attributed to heartburn may have been cardiac pain representing NSTEMI. -Given elevated troponin and likely NSTEMI, he may benefit from cardiac cath procedure. Pt has old grafts from 1985 and a significant cardiac and vascular history. Holding NPO tonight, with IV heparin for DVT PPx, IVF, and loading dose Plavix 300 in preparation for possible cardiac cath procedure tomorrow. Notably, his outpatient healthcare technician had been concerned about cath procedures given pt's CKD and baseline Cr at 1.5. Working with cardiology team to determine if benefits outweigh risks of procedure given pt's current context. -Cardiology consulted, their recommendations appreciated. FEN: maintenance IVF @125/hr, monitor electrolytes including Mg which was 1.4 and has been supplemented with IV MgSO4, NPO starting at midnight in preparation for possible cath procedure tomorrow. DVT PPx: Stopped home apixaban, on IV heparin 1250 units/hr in preparation for possible cath procedure tomorrow. Code status: Full code Disposition: Sx improved, troponins elevated, remain inpatient as we work with cardiology team to consider possible cath procedure for likely NSTEMI in the context of significant past medical history (2) Atypical chest pain: Mr. Zayas is an 85yo male with significant previous cardiac and vascular medical history including CAD with CABG x3 35 years ago who presented 07/16 with right sided chest pain. The chest pain is atypical in that it was exertional initially but was in an atypical location of right upper chest and axilla and was not relieved by nitroglycerin. -CXR and chest CTA showed no acute findings. Multiple EKGs showed A fib with PVCs, incomplete LBBB, and AV johanny dysfunction bradycardia. Troponins notably increased from 0.024 initially to 7.48 today. The initial right-sided chest pain is no longer present at rest or with movement, and it is mildly reproducible today. This pain is likely not cardiac and is more likely MSK in nature. Continue to monitor. (3) Ischemic cardiomyopathy: -Pt was recently discovered to have reduced LV systolic function. Follows with Dr. Rodas outpatient. Continue home losartan. -As above, given elevated troponin and likely NSTEMI, he may benefit from cardiac cath procedure. Pt has old grafts from 1985 and a significant cardiac and vascular history. Holding NPO tonight, with IV heparin for DVT PPx, IVF, and loading dose Plavix 300. -Cardiology consulted, their recommendations appreciated. (4) CAD (coronary artery disease): CABG in 1985, significant cardiac history. Continue home meds including ASA, losartan, atorvastatin, and apixaban. Associated angina: with unspecified angina Coronary Disease- Associated Artery/Lesion type: bypass graft [place] vs. transplanted heart: [place] heart Qualified Code(s): I25.709 - Atherosclerosis of coronary artery bypass graft(s), unspecified, with unspecified angina pectoris (5) Atrial fibrillation: -Permanant A fib although on exam auscultated as regular rate secondary to AV node dysfunction bradycardia. Most recent HR 58, and with chronic bradycardia there is adequate rate control without medications. -Hold home apixaban. On IV heparin 1250 units/hr for anticoagulation in preparation for possible cardiac cath procedure. Atrial fibrillation type: permanent Qualified Code(s): I48.21 - Permanent atrial fibrillation (6) Peripheral arterial disease: -Hx of AAA repair and left renal artery bypass in 2007. (7) Renal artery stenosis: -Continue home meds including losartan and amlodipine for BP control. Last imaging in 2019. (8) Solitary pulmonary nodule: Pulm nodules seen on Chest CTA, considered stable. Pt has been following with pulmonology outpatient, continue screenings outpatient. (9) Hypertension: As above, continue home meds. Hypertension type: essential hypertension Qualified Code(s): I10 - Essential (primary) hypertension (10) Elevated alkaline phosphatase level: Chronic concern, most recently 145. Pt has had liver imaging to work up in the last which has been negative. No acute management. Admission and Anticipated Discharge Date Admission Date: July 17, 2020 Supervising Attestation Attending Attestation/Note I also saw the patient with the resident and medical student and confirmed the history and physical exam. I reviewed all laboratory findings and discussed the case with the transportation sales consultant. Upon our examination midmorning, the patient had been complaining of " ulcer" pain and when I asked him to clarify this, the location of the pain was upper epigastric/lower sternum. Fortunately, the time of examination, he was without any discomfort. In reviewing the history and discussing the symptoms with the patient himself, there does seem to be a distinctly different pain today as compared to admission. The description of his pain upon admission seemed more musculoskeletal in etiology (right arm discomfort when lifting); where the pain since his admission, including this morning, is more of a lower chest/epigastric pain, while at rest. This, combined with an elevated troponin, suggest acute coronary syndrome/non-STEMI. Exam 159/80, 58, 17, 36.6, 94% on room air Alert and oriented. No acute distress. Heart rate is irregular (on telemetry, rate controlled atrial fibrillation, but to auscultation, it is slow enough that it sounds like a sinus arrhythmia) Lungs are clear throughout. Nonlabored respirations. Extremities without edema. Laboratory Hemoglobin 13.1 BUN 23, creatinine 1.5 Hemoglobin A1c 6.4% Troponin peaked at 10.2, p.m. repeat today 7.48 Total cholesterol 119, LDL 71, HDL 35. 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 Impression and Plan Non-STEMI Ischemic cardiomyopathy GERD History of coronary disease status post CABG Peripheral arterial disease Renal artery stenosis We will discuss with cardiology potential for angiography; he may indeed have nonoperative findings and of course there would be a renal risk with angiography. We will follow troponin (which looks like it may have already occurred); repeat troponin and EKG with recurrence of pain. Suggest moving his proton pump inhibitor to the a.m. and adding an H2 jose at night Continue on heparin infusion for time being pending final decision on angiogra phy; if determined no procedure, can discontinue heparin and resume his Eliquis. Subjective Mr. Zayas reports the right-sided pain he had on admission has largely resolved. He states his pain felt like a dull, deep ache near his right shoulder. He says he was carrying several cases of water on Thursday which might have strained his muscles, and then he noticed the pain when reaching his right arm up to open an overhead cabinet at home. Nitroglycerin did not decrease the pain although PRN morphine 2mg did. This morning he is experiencing no pain at rest or with movement, although it is mildly reproducible with palpation. He does state he also had some pain overnight in his epigastric region which he attributed to heartburn and improved this morning with pantoprazole and tums. Review of Systems Review of Systems: All systems reviewed & are unremarkable except as noted in HPI & below Constitutional: no fever and no weakness Respiratory: no cough and no dyspnea Cardiovascular: no chest pain, no palpitations and no lightheadedness Gastrointestinal: + heartburn (mild epigastric pain, resolved); no nausea, no vomiting, no dysphagia, no constipation and no diarrhea/loose stools Genitourinary: no dysuria Neurologic: no headache(s) Physical Exam Constitutional: WD/WN, vitals as above no acute distress ENMT: external ear and nose normal, oropharynx normal Respiratory: normal respiratory effort, lungs clear to auscultation Auscultation: no rales, no rhonchi and no wheezes Cardiovascular: Rate/Rhythm: regular rhythm and + bradycardic Heart Sounds: normal S1 and normal S2; no gallop, no murmur and no cardiac rub Chest (Breasts): Additional Comments: Mildly tender to palpation of right upper outer chest as well as right axilla. No pain at rest or with movement. Gastrointestinal (Abdomen): normal bowel sounds, soft, nontender, no hepatosplenomegaly Percussion/Palpation: abdomen nontender, no guarding and abdomen not rigid Musculoskeletal: no cyanosis or clubbing, extremities motor strength 5/5 Skin: no rashes, warm and dry Neurologic: CN's II-XI intact bilaterally Psychiatric: A+Ox3, euthymic affect Results & Data ([facility]) Vital Signs (Past 12 Hours) Vital Signs Temp Pulse Pulse Resp BP BP Pulse Ox 07/17/20 15:28 36.6 C 58 L 17 159/80 H 94 07/17/20 12:31 36.7 C 51 L 17 127/69 95 07/17/20 11:00 68 07/17/20 04:28 57 L 145/80 H 93
[2020-07-17] MEDS: HEPARIN SODIUM/DEXTROSE 25,000 UNITS/500 ML BAG IV SCH (18:07)
[2020-07-17] MEDS: carvediloL 3.125 MG TAB PO SCH (20:28)
[2020-07-17] MEDS: FAMOTIDINE 20 MG TAB PO SCH (20:28)
[2020-07-17] MEDS: ATORVASTATIN 40 MG TAB PO SCH (20:28)
[2020-07-17 22:04] LABS: Partial Thromboplastin Ratio 2.8
[2020-07-17 22:10] LABS: Partial Thromboplastin Time 73.9 Seconds (21.0-31.0)
[2020-07-18] MEDS: LACTATED RINGER'S 1,000 ML IV SCH ×2 (02:07→13:00)
[2020-07-18 04:12] LABS: Basophils # (auto) 0.02 K/uL (0-0.2); Basophils % (auto) 0.2 %; Eosinophils # (auto) 0.16 K/uL (0-0.5); Eosinophils % (auto) 1.6 %; Hematocrit (blood only) 39.2 % (42-52); Hemoglobin 13.3 g/dL (14.0-18.0); Immature Granulocytes # (auto) 0.02 K/uL (0.00-0.02); Immature Granulocytes % (auto) 0.2 %; Lymphocytes # (auto) 1.17 K/uL (1.2-3.4); Lymphocytes % (auto) 11.4 %; Mean Corpuscular Hemoglobin 28.5 pg (25-34); Mean Corpuscular Hgb Conc 33.9 g/dL (32-36); Mean Corpuscular Volume 84.1 fL (80-100); Mean Platelet Volume 10.8 fL (7.4-10.4); Monocytes # (auto) 1.12 K/uL (0.11-0.59); Monocytes % (auto) 10.9 %; Neutrophils # (auto) 7.75 K/uL (1.4-6.5); Neutrophils % (auto) 75.7 %; Platelet Count 208 K/uL (130-400); RDW Coefficient of Variation 14.2 % (11.5-14.5); RDW Standard Deviation 43.4 fL (36.4-46.3); Red Blood Count 4.66 M/uL (4.7-6.1); White Blood Count 10.24 K/uL (4.8-10.8)
[2020-07-18 04:31] LABS: BUN Creatinine Ratio 15.2 (10-20); Calcium 8.5 mg/dl (8.5-10.1); Creatinine Clr Calc Pharmacy 40.9 ml/min; Est GFR (Non-African American) 43.1; Magnesium 1.8 mg/dl (1.8-2.4); Potassium 3.7 mmol/L (3.5-5.1)
[2020-07-18 04:36] LABS: Partial Thromboplastin Ratio 2.8
[2020-07-18 04:53] LABS: Partial Thromboplastin Time 73.4 Seconds (21.0-31.0)
--- NOTE | 2020-07-18 09:46 | Cardiology Progress Note ---
Date of Service July 18, 2020 Assessment & Plan (1) Atypical chest pain: Nearly resolved. (2) Ischemic cardiomyopathy: He was recently discovered to have reduced LV systolic function. A repeat limited echocardiogram today. Continue losartan. Started on low-dose carvedilol primarily for his acute coronary syndrome. (3) CAD (coronary artery disease): Severe. Status post surgical revascularization quite remotely. Continue outpatient medical management with aspirin, apixaban and atorvastatin. (4) Atrial fibrillation: Permanent. Adequate rate control without rate control medications. This suggests an element of AV node dysfunction. oral Anticoagulation currently being held. On intravenous heparin (5) Peripheral arterial disease: Prior abdominal aortic aneurysm repair and left renal artery bypass in 2007. (6) Elevated troponin: We had a discussion again this morning regarding the utility of coronary angiography. I did recommend an invasive evaluation given his symptoms and elevated biomarkers. He continues to be hesitant about an invasive evaluation. He is interested in exploring options for catheterization at the [facility] in [place]. I explained the unpredictable nature of acute coronary events in the possibility of a more severe recurrence of an acute coronary syndrome. At this point he has elected for conservative therapy. We will keep him on heparin for the remainder of the day. Think we will discontinue heparin tomorrow and restart his apixaban. Will continue Plavix and aspirin. Will keep him on a low-dose of carvedilol and monitor his heart rate and blood pressure. Admission and Anticipated Discharge Date Admission Date: July 17, 2020 Subjective This morning patient claimed he feeling well. He has not had recurrence of his epigastric for precordial symptoms. Minimal discomfort at the right shoulder and upper right chest. Tolerating diet. Ambulatory to the commode without symptoms of dizziness or lightheadedness. Review of Systems Review of Systems: Per HPI Physical Exam Physical Exam: The patient is alert and oriented. Mood and affect appeared normal. He answered all questions appropriately. HEENT: Pupils are equal and reactive to light and accommodation. Extraocular movements are intact. The sclerae are anicteric. Neuro: Cranial nerves intact Cardiac: Heart demonstrates an irregular rhythm. Normal rate. Normal S1 and S2. No murmurs on examination. Extremities: There was no evidence of hypoperfusion. There is no cyanosis or clubbing. There is no edema. Skin: I did not appreciate any rashes on examination today. Results & Data ([facility]) Vital Signs (Past 12 Hours) Vital Signs Temp Pulse Pulse Resp BP BP Pulse Ox 07/18/20 07:56 37.0 C 52 L 20 159/76 H 93 07/18/20 04:22 36.5 C 44 L 18 138/75 93 07/17/20 23:25 36.8 C 52 L 18 151/78 H 95 07/17/20 22:20 53 L Laboratory Results Abnormal Lab Results 07/17/20 07/17/20 07/17/20 12:12 13:18 20:05 WBC RBC Hgb Hct MCV MCH MCHC RDW Std Deviation RDW Coeff of Ari Plt Count MPV Immature Gran % (Auto) Neut % (Auto) Lymph % (Auto) [place] % (Auto) Eos % (Auto) Baso % (Auto) Neut # (Auto) Lymph # (Auto) [place] # (Auto) Eos # (Auto) Baso # (Auto) Immature Gran # (Auto) APTT 84.4 H* Cancelled PTT Ratio 3.2 Cancelled Sodium Potassium Chloride Carbon Dioxide Anion Gap BUN Creatinine Est Cr Clr Drug Dosing Est GFR ( Amer) Est GFR (Non-Af Amer) BUN/Creatinine Ratio Glucose Calcium Magnesium Troponin I 7.480 H* 07/17/20 07/18/20 07/18/20 21:17 03:50 03:50 WBC 10.24 RBC 4.66 L Hgb 13.3 L Hct 39.2 L MCV 84.1 MCH 28.5 MCHC 33.9 RDW Std Deviation 43.4 RDW Coeff of Ari 14.2 Plt Count 208 MPV 10.8 H Immature Gran % (Auto) 0.2 Neut % (Auto) 75.7 Lymph % (Auto) 11.4 [place] % (Auto) 10.9 Eos % (Auto) 1.6 Baso % (Auto) 0.2 Neut # (Auto) 7.75 H Lymph # (Auto) 1.17 L [place] # (Auto) 1.12 H Eos # (Auto) 0.16 Baso # (Auto) 0.02 Immature Gran # (Auto) 0.02 APTT 73.9 H* PTT Ratio 2.8 Sodium 138 Potassium 3.7 Chloride 108 H Carbon Dioxide 23 Anion Gap 7.0 BUN 23 H Creatinine 1.48 H Est Cr Clr Drug Dosing 40.9 Est GFR ( Amer) 50.0 Est GFR (Non-Af Amer) 43.1 BUN/Creatinine Ratio 15.2 Glucose 107 H Calcium 8.5 Magnesium 1.8 Troponin I 07/18/20 03:50 WBC RBC Hgb Hct MCV MCH MCHC RDW Std Deviation RDW Coeff of Ari Plt Count MPV Immature Gran % (Auto) Neut % (Auto) Lymph % (Auto) [place] % (Auto) Eos % (Auto) Baso % (Auto) Neut # (Auto) Lymph # (Auto) [place] # (Auto) Eos # (Auto) Baso # (Auto) Immature Gran # (Auto) APTT 73.4 H* PTT Ratio 2.8 Sodium Potassium Chloride Carbon Dioxide Anion Gap BUN Creatinine Est Cr Clr Drug Dosing Est GFR ( Amer) Est GFR (Non-Af Amer) BUN/Creatinine Ratio Glucose Calcium Magnesium Troponin I PG Care Time/CCT Total # of Minutes Spent Total Time Spent with Patient: Total time spent is greater than 50% in coordination of care (as documented) at patient's floor/unit and/or counseling patient: Coding Level of Care Code 72469 Subseq Hosp Care Lvl 2 Diagnoses Atypical chest pain R07.89 Ischemic cardiomyopathy I25.5 CAD (coronary artery disease) I25.709 Coronary Disease-Associated Artery/Lesion type: bypass graft [place] vs. transplanted heart: [place] heart Associated angina: with unspecified angina Atrial fibrillation I48.21 Atrial fibrillation type: permanent Peripheral arterial disease I73.9 Elevated troponin R77.8 (1) CAD (coronary artery disease) Coronary Disease-Associated Artery/Lesion type: bypass graft [place] vs. transplanted heart: [place] heart Associated angina: with unspecified angina Qualified Code(s): I25.709 - Atherosclerosis of coronary artery bypass graft(s), unspecified, with unspecified angina pectoris (2) Atrial fibrillation Atrial fibrillation type: permanent Qualified Code(s): I48.21 - Permanent atrial fibrillation
[2020-07-18] MEDS: carvediloL 3.125 MG TAB PO SCH ×2 (10:02→20:30)
[2020-07-18] MEDS: PANTOprazole 40 MG TAB PO SCH (10:03)
[2020-07-18] MEDS: CLOPIDOGREL BISULFATE 75 MG TAB PO SCH (10:03)
[2020-07-18] MEDS: CHOLECALCIFEROL 1,000 UNITS 25 MCG TAB PO SCH (10:04)
[2020-07-18] MEDS: ASPIRIN 81 MG ECTAB PO SCH (10:04)
[2020-07-18] MEDS: LOSARTAN/HCTZ 50/12.5MG TAB PO SCH (10:04)
[2020-07-18] MEDS: amLODIPine BESYLATE 5 MG TAB PO SCH (10:05)
[2020-07-18] MEDS: TAMSULOSIN HCL 0.4 MG CAP PO SCH (10:05)
--- NOTE | 2020-07-18 12:04 | XCELERA ---
[id number]
[2020-07-18 12:26] LABS: Partial Thromboplastin Ratio 2.4
[2020-07-18 12:29] LABS: Partial Thromboplastin Time 62.4 Seconds (21.0-31.0)
--- NOTE | 2020-07-18 13:54 | Electrocardiogram Report ---
Test Reason : Blood Pressure : / mmHG Vent. Rate : 057 BPM Atrial Rate : 000 BPM P-R Int : 000 ms QRS Dur : 106 ms QT Int : 490 ms P-R-T Axes : 000 046 -83 degrees QTc Int : 476 ms Atrial fibrillation with slow ventricular response with premature ventricular or aberrantly conducted complexes Minimal voltage criteria for LVH, may be normal variant ( [employer] product ) Abnormal ECG Confirmed by Hugo De La Torre ([id number]) on 07/18/2020 1:53:50 PM Referred By: REFERRED SELF Confirmed By:Juan Miguel De La Torre
--- NOTE | 2020-07-18 13:59 | Medical Student Progress Note ---
Date of Service July 18, 2020 Assessment & Plan (1) Elevated troponin: Mr. Zayas is an 85yo male with significant previous cardiac and vascular medical history including CAD with CABG x3 35 years ago who presented 07/16 with right sided chest pain. The chest pain is atypical in that it was exertional initially but was in an atypical location of right upper chest and axilla and was not relieved by nitroglycerin. -CXR and chest CTA showed no acute findings. Multiple EKGs showed A fib with PVCs, incomplete LBBB, and AV johanny dysfunction bradycardia. -Troponins 0.024 to 0.163 to 5.2 to 10.2 to most recently 7.48. It appears troponin has peaked and pain has resolved, so acute episode has likely passed. -Initial right sided chest pain is unlikely cardiac, but the epigastric pain from yesterday which the pt attributed to heartburn may have been cardiac pain representing NSTEMI. Added famotidine to pantoprazole for GERD in case that was part of his pain presentation. -Given elevated troponin and likely NSTEMI, he may benefit from cardiac cath procedure. Pt has old grafts from 1985 and a significant cardiac and vascular history. -Discussions with pt including with Dr. De La Torre indicate that he prefers conservative therapy at this time. With this in mind, he received a TTE today w hich showed LV systolic function moderately reduced with EF 30-35%, regional wall motion abnormalities, left atrial moderate dilation, and moderate mitral regurgitation. Pt started on carvedilol 3.125 BID, Plavix 75, and continue ASA 81. Monitor tonight and continue to follow outpatient with conservative management for now. -Cardiology consulted, their recommendations appreciated. FEN: LR@80/hr, electrolytes WNL including Mg at 1.8 today, heart healthy diet DVT PPx: Plan to discontinue IV heparin tomorrow and restart home apixaban then. Code status: Full code Disposition: Sx resolved, troponins peaked, pt prefers conservative management. Remain inpatient today to monitor for chest pain with increased mobility with likely D/C tomorrow. (2) Atypical chest pain: The initial right-sided chest pain is no longer present at rest, with movement, or with palpation on exam. This pain is likely not cardiac and is more likely MSK in nature. Continue to monitor. (3) Ischemic cardiomyopathy: -Pt was recently discovered to have reduced LV systolic function. Follows with Dr. Rodas outpatient. Continue home losartan. -TTE showed LV systolic function moderately reduced with EF 30-35%, regional wall motion abnormalities, left atrial moderate dilation, and moderate mitral regurgitation. -Started carvedilol and clopidogrel, continue ASA. -Cardiology consulted, their recommendations appreciated. (4) CAD (coronary artery disease): CABG in 1985, significant cardiac history. Continue home meds including ASA, losartan, atorvastatin, and apixaban, in addition to clopidogrel and carvedilol Associated angina: with unspecified angina Coronary Disease- Associated Artery/Lesion type: bypass graft [place] vs. transplanted heart: [place] heart Qualified Code(s): I25.709 - Atherosclerosis of coronary artery bypass graft(s), unspecified, with unspecified angina pectoris (5) Atrial fibrillation: -Permanant A fib with AV node dysfunction bradycardia. Most recent HR 53, and with chronic bradycardia there is adequate rate control without medications. -Hold home apixaban. On IV heparin 1250 units/hr for anticoagulation which we will switch to home apixaban tomorrow pending no setbacks. Atrial fibrillation type: permanent Qualified Code(s): I48.21 - Permanent atrial fibrillation (6) Peripheral arterial disease: -Hx of AAA repair and left renal artery bypass in 2007. (7) Renal artery stenosis: -Continue home meds including losartan and amlodipine for BP control. Last imaging in 2019. (8) Solitary pulmonary nodule: Pulm nodules seen on Chest CTA, considered stable. Pt has been following with pulmonology outpatient, continue screenings outpatient. (9) Hypertension: As above, continue home meds in addition to starting carvedilol 3.125 BID. Hypertension type: essential hypertension Qualified Code(s): I10 - Essential (primary) hypertension Admission and Anticipated Discharge Date Admission Date: July 17, 2020 Supervising Attestation Attending Attestation/Note I also saw the patient with the resident and medical student and confirmed the history and physical exam. I reviewed all laboratory findings and discussed the case with the home service consultant. Patient is without chest pain this morning and he has had no symptoms since I saw him yesterday. That being said, he has had minimal ambulation -really just from his bed to the bedside commode and back. He currently carlos on a heparin infusion and his Eliquis is on hold. Reviewed recommendations from cardiology regarding catheterization; he would like to take a more conservative approach at this point and if he were to catheterization, he would like to have this done at the [facility]. Exam 146/83, 52, 20, 36.4, 98% on room air Alert and oriented. No acute distress. Heart rate is irregular (on telemetry, rate controlled atrial fibrillation) Lungs are clear throughout. Nonlabored respirations. Extremities without edema. Laboratory Hemoglobin 13.3, white blood cell count 10.24 BUN 23, creatinine 1.48. Imaging No new imaging to report. 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 Impression and Plan Non-STEMI Ischemic cardiomyopathy GERD History of coronary disease status post CABG Peripheral arterial disease Renal artery stenosis Plan discussed with cardiology. We will continue heparin infusion today. We will begin to increase ambulation to see if he has any symptoms. If he does well, we will can continue medical/conservative management. Of course if he were to have recurrent symptoms, would need to revisit the idea of catheterization whether it be here or done at another facility per the patient's preference. If he does well, anticipate switching him back to [facility] tomorrow. Subjective Mr. Zayas states that both his right shoulder-area pain and his epigastric pain have been gone since yesterday afternoon. He is having no pain at rest, with movement, or with palpation at this time. He has not needed any of his PRN medications and was eating and drinking well prior to NPO status this morning. We discussed how his troponins have peaked and that his epigastric pain was likely an NSTEMI. He has been talking with Dr. De La Torre about his management options including coronary revasculatization vs. echo vs. nuclear perfusion study. He says he would prefer not do due the cath unless it is needed, and he would want to do it at the [facility], [place] where he had his past procedures rather than here. Review of Systems Review of Systems: All systems reviewed & are unremarkable except as noted in HPI & below Constitutional: no fever and no weakness Respiratory: no cough and no dyspnea Cardiovascular: no chest pain, no dyspnea, no palpitations and no lightheadedness Gastrointestinal: no abdominal pain, no heartburn, no nausea, no vomiting, no dysphagia, no constipation and no diarrhea/loose stools Musculoskeletal: no body aches Neurologic: no headache(s) Physical Exam Constitutional: WD/WN, vitals as above cooperative and comfortable ENMT: external ear and nose normal, oropharynx normal Respiratory: normal respiratory effort, lungs clear to auscultation Auscultation: no rales, no rhonchi and no wheezes Cardiovascular: Rate/Rhythm: + bradycardic and + irregularly irregular Heart Sounds: no gallop, no murmur and no cardiac rub Chest (Breasts): Breast: normal palpation of breasts and normal palpation of axillae Gastrointestinal (Abdomen): normal bowel sounds, soft, nontender, no h epatosplenomegaly Percussion/Palpation: abdomen nontender, no guarding and abdomen not rigid Musculoskeletal: no cyanosis or clubbing, extremities motor strength 5/5 Skin: no rashes, warm and dry Psychiatric: A+Ox3, euthymic affect Eye Contact: good eye contact Results & Data ([facility]) Vital Signs (Past 12 Hours) Vital Signs Temp Pulse Resp BP BP Pulse Ox 07/18/20 11:55 36.7 C 53 L 18 126/71 94 07/18/20 07:56 37.0 C 52 L 20 159/76 H 93 07/18/20 04:22 36.5 C 44 L 18 138/75 93
[2020-07-18] MEDS: HEPARIN SODIUM/DEXTROSE 25,000 UNITS/500 ML BAG IV SCH (19:13)
[2020-07-18] MEDS: FAMOTIDINE 20 MG TAB PO SCH (20:30)
[2020-07-18] MEDS: ATORVASTATIN 40 MG TAB PO SCH (20:30)
[2020-07-19 07:39] LABS: Basophils # (auto) 0.02 K/uL (0-0.2); Basophils % (auto) 0.3 %; Eosinophils # (auto) 0.26 K/uL (0-0.5); Eosinophils % (auto) 3.4 %; Hematocrit (blood only) 37.5 % (42-52); Hemoglobin 13.1 g/dL (14.0-18.0); Immature Granulocytes # (auto) 0.02 K/uL (0.00-0.02); Immature Granulocytes % (auto) 0.3 %; Lymphocytes # (auto) 1.32 K/uL (1.2-3.4); Lymphocytes % (auto) 17.5 %; Mean Corpuscular Hemoglobin 29.2 pg (25-34); Mean Corpuscular Hgb Conc 34.9 g/dL (32-36); Mean Corpuscular Volume 83.5 fL (80-100); Mean Platelet Volume 11.1 fL (7.4-10.4); Monocytes # (auto) 0.82 K/uL (0.11-0.59); Monocytes % (auto) 10.8 %; Neutrophils # (auto) 5.12 K/uL (1.4-6.5); Neutrophils % (auto) 67.7 %; Platelet Count 228 K/uL (130-400); RDW Coefficient of Variation 14.3 % (11.5-14.5); RDW Standard Deviation 43.8 fL (36.4-46.3); Red Blood Count 4.49 M/uL (4.7-6.1); White Blood Count 7.56 K/uL (4.8-10.8)
[2020-07-19 08:06] LABS: Partial Thromboplastin Ratio 2.2
[2020-07-19 08:07] LABS: Partial Thromboplastin Time 57.9 Seconds (21.0-31.0)
[2020-07-19 08:12] LABS: BUN Creatinine Ratio 17.5 (10-20); Creatinine Clr Calc Pharmacy 40.4 ml/min; Est GFR (African American) 49.2; Est GFR (Non-African American) 42.4; Magnesium 1.6 mg/dl (1.8-2.4); Potassium 3.8 mmol/L (3.5-5.1)
[2020-07-19] MEDS: CLOPIDOGREL BISULFATE 75 MG TAB PO SCH (09:18)
[2020-07-19] MEDS: CHOLECALCIFEROL 1,000 UNITS 25 MCG TAB PO SCH (09:19)
[2020-07-19] MEDS: amLODIPine BESYLATE 5 MG TAB PO SCH (09:19)
[2020-07-19] MEDS: TAMSULOSIN HCL 0.4 MG CAP PO SCH (09:19)
[2020-07-19] MEDS: LOSARTAN/HCTZ 50/12.5MG TAB PO SCH (09:19)
[2020-07-19] MEDS: ASPIRIN 81 MG ECTAB PO SCH (09:19)
[2020-07-19] MEDS: PANTOprazole 40 MG TAB PO SCH (09:19)
[2020-07-19] MEDS: carvediloL 3.125 MG TAB PO SCH (09:20)
[2020-07-19] MEDS: HEPARIN SODIUM/DEXTROSE 25,000 UNITS/500 ML BAG IV SCH (13:41)
--- NOTE | 2020-07-19 15:17 | Med Student Discharge Summary ---
Date of Service July 19, 2020 Admission HPI Per Admitting Provider 85 YOM with past medical history of Fatigue, CAD with CABG x3 35 years ago, RCA stent, HTN, NORRIS, HLD, Afib on Eliquis, splenic thrombus, cholecystectomy, AAA with repair, left renal artery bypass, left femoral bypass graft, bilateral carotid artery stenosis, GI bleed. Patient with significant vascular disease and cardiac disease history. Who is closely followed by his Resident Assistant Cna Dr. Rodas and has opted for medical management of his cardiac disease. He came to the emergency room today for complaint of right sided chest pain that he noticed got worse while raising his arm to get medicine out of his cabinet. This pain is not as his normal cardiac pain that he gets. His normal cardiac pain is in the center of his chest. His pain today was also NOT associated with any diaphoresis, dyspnea or breathlessness, nausea or vomiting. Does endorse carrying a case of water in from outside yesterday, but again he did not notice any increase in work of breathing or chest pain at that time. This pain is reproducible. He was evaluated in the emergency room with a CT scan of the chest, ECG and laboratory assessment. He had a second troponin drawn 3 hours apart that went from 0.024 up to 0.163 with incomplete left bundle block and no dynamic STEMI changes some twave changes. Patient will be observed for trending troponin and ECG, medication review and titration, and consultation with cardiology. Admission Exam (Per Admitting) Constitutional WD/WN, vitals as above cooperative and comfortable; no acute distress ENMT external ear and nose normal, oropharynx normal Respiratory normal respiratory effort, lungs clear to auscultation Auscultation: no rales, no rhonchi and no wheezes Cardiovascular Rate/Rhythm: regular rhythm, + bradycardic and + irregularly irregular Heart Sounds: normal S2; no gallop, no murmur and no cardiac rub Chest (Breasts) Breast: normal palpation of breasts and normal palpation of axillae Gastrointestinal (Abdomen) normal bowel sounds, soft, nontender, no hepatosplenomegaly Percussion/Palpation: abdomen nontender, no guarding and abdomen not rigid Musculoskeletal no cyanosis or clubbing, extremities motor strength 5/5 Skin no rashes, warm and dry Neurologic CN's II-XI intact bilaterally Psychiatric A+Ox3, euthymic affect Eye Contact: good eye contact Discharge Data Consultations 07/16/20 12:48 ED Decision to Admit Stat 07/16/20 16:45 Consult Cardiology Routine Hospital Course (1) Elevated troponin: Mr. Zayas is an 85yo male with significant previous cardiac and vascular medical history including CAD with CABG x3 35 years ago who presented 07/16 with right sided chest pain. The chest pain is atypical in that it was exertional initially but was in an atypical location of right upper chest and axilla and was not relieved by nitroglycerin. -CXR and chest CTA showed no acute findings. Multiple EKGs showed A fib with PVCs, incomplete LBBB, and AV johanny dysfunction bradycardia. -Troponins 0.024 to 0.163 to 5.2 to 10.2 to 7.48, peaked. -Initial right sided chest pain is unlikely cardiac, but the epigastric pain which the pt attributed to heartburn may have been cardiac pain representing NSTEMI. Added famotidine to pantoprazole for GERD in case that was part of his pain presentation. No pain for more than 24 hrs prior to discharge. -Given elevated troponin and likely NSTEMI, he may benefit from cardiac cath procedure. Pt has old grafts from 1985 and a significant cardiac and vascular history. -Pt had several discussions with medicine team and cardiology consult regarding cardiac cath vs. conservative management. Pt preferred to get cardiac catheterization at [facility] rather than here and asked that we help to schedule that after discharge. Our senior talent acquisition specialist Dr. De La Torre spoke with the [facility] and scheduled him to go there on 07/24 for planned angiography 07/25. In the meantime pt will continue with medication management. -TTE showed LV systolic function moderately reduced with EF 30-35%, regional wall motion abnormalities, left atrial moderate dilation, and moderate mitral regurgitation. -Pt started on carvedilol 3.125 BID, Plavix 75, and continued home ASA 81. Continue these outpatient. (2) Atypical chest pain: The initial right-sided chest pain resolved and was likely not cardiac and was more likely MSK in nature. (3) Ischemic cardiomyopathy: -TTE showed LV systolic function moderately reduced with EF 30-35%, regional wall motion abnormalities, left atrial moderate dilation, and moderate mitral regurgitation. -Continue losartan, carvedilol, clopidogrel, and ASA. -F/U outpatient with Dr. Rodas (4) CAD (coronary artery disease): CABG in 1985, significant cardiac history. Continue ASA, losartan, atorvastatin, and apixaban, clopidogrel, and carvedilol (5) Atrial fibrillation: -Permanant A fib with AV node dysfunction bradycardia. Chronic bradycardia and there is adequate rate control without medications. -Was on IV heparin inpatient. Continue home apixaban (6) Peripheral arterial disease: -Hx of AAA repair and left renal artery bypass in 2007. (7) Renal artery stenosis: -Continue home meds including losartan and amlodipine for BP control. Last imaging in 2019. (8) Solitary pulmonary nodule: Pulm nodules seen on Chest CTA, considered stable. Pt has been following with pulmonology outpatient, continue screenings outpatient. (9) Hypertension: As above, continue home meds in addition to starting carvedilol 3.125 BID. Discharge Plan Discharge Items Patient Disposition: Home - Self-Care Reason For Visit: CHEST PAIN Discharge Diagnosis: NSTEMI Activity: Per Instructions section Non-emergency contact: Primary Care Provider and Resident Assistant Cna Call non-emergency contact if: you have any medication questions and your symptoms worsen Follow-up/Referrals: ProBi MD [Primary Care Provider] - (OFFICE WILL CALL WITH APPOINTMENT DATE/TIME) Diet: Heart Healthy Addtl Attending Provider Instructions: Hi Mr. Zayas, You presented to [facility] for pain in your central chest as well as pain in your upper right chest. The pain resolved during your time inpatient. The upper right chest pain is most likely muscular, perhaps relating to your lifting of water cases prior to admission. This pain resolved during your stay. The central chest pain was likely either cardiac in nature and/or relating to heartburn. Given your history of heart conditions, there was concern for a heart attack and your troponin blood levels were very high (10.2) although they peaked during your admission, indicating the heart attack has likely passed if that is what was occurring. We discussed your care with cardiology and the recommendation is to pursue cardiac catheterization. The plan is to obtain this at the [facility] [place] at the end of the month. - f/u w/ PCP in 1-2 weeks as well. -Please continue your home medications, including the carvedilol and clopidogrel that were added during this admission -Please continue your Eliquis twice daily starting tomorrow morning for anticoagulation. Take it at 6am and 6pm for the first day because we gave you a dose at 4pm on 07/19. ON subsequent days, you can slowly shift back to your usual 8am/8pm timing. If you develop any new or worsening symptoms including fever, chills, sweats, chest pain, chest pressure, difficulty breathing, uncontrolled nausea/vomiting, rash, wheezing, passing out or nearly passing out, bleeding, black/bloody bowel movements, or other new or concerning symptoms please call your primary care physician, or call 911 for re-evaluation in the emergency department if you are very concerned. Pending Studies at Discharge: No Stand-Alone Forms: My [facility], Smoking Cessation Medications and DC Order Prescriptions: New clopidogrel 75 mg Tablet 75 mg PO QAM 30 Days Qty: 30 RF: 1 carvedilol 3.125 mg Tablet 3.125 mg PO BID 30 Days Qty: 60 RF: 1 Continued tamsulosin 0.4 mg capsule 0.4 mg PO DAILY Qty: 30 RF: 0 amlodipine 5 mg tablet 5 mg PO DAILY RF: 0 losartan-hydrochlorothiazide 50-12.5 mg tablet 0.5 tab PO DAILY RF: 0 allopurinol 100 mg tablet 200 mg PO DAILY Qty: 180 RF: 3 pantoprazole 40 mg tablet,delayed release (DR/EC) 40 mg PO HS Qty: 90 RF: 3 apixaban 2.5 mg tablet 2.5 mg PO BID Qty: 180 RF: 0 potassium 99 mg Tablet 99 mg PO QAM RF: 0 atorvastatin 80 mg tablet 80 mg PO HS RF: 0 aspirin 81 mg Tablet,Delayed Release (Dr/Ec) 81 mg PO QAM RF: 0 B-complex with vitamin C [Super B Complex-Vitamin C] Tablet 1 tab PO QAM RF: 0 cholecalciferol (vitamin D3) [Vitamin D3] 1,000 unit capsule 5,000 units PO QAM RF: 0 nitroglycerin [Nitrostat] 0.4 mg tablet, sublingual 0.4 mg Sublingual Q5M PRN (Reason: chest pain) RF: 0 Discharge Orders: Discharge Order (Routine); Ordered 07/19/20 Ordered By: Haroon Saucedo/Other Patient Handouts: A1C Admission Data Admit Date/Time: 07/17/20 14:34 Attending Provider: Jacob Ortiz Admit Provider: Dylan Pastrana Primary Care Provider: Bi Meier Other Providers: Dylan Pastrana ; Tramaine De La Torre Other Interventions: Discharge Summary Assessment (RN) Last Done: 07/19/20 17:07 Supervising Attestation Attending Attestation/Note I also saw the patient with the resident and medical student and confirmed the history and physical exam. I reviewed all laboratory findings and discussed the case with the communications consultant. Patient has remained chest pain-free since yesterday's exam. In addition, he has been only in the hallway without any chest pain or shortness of breath. The patient has opted for outpatient cardiac catheterization at the [facility] in [place]. Cardiology here has spoken with cardiology in [place] and arrangements have been made. The patient was given specific instructions with regards to logistics. Exam 121/58, 56, 16, 36.6, 95% on room air Alert and oriented. No acute distress. Heart rate is irregular (on telemetry, rate controlled atrial fibrillation) Lungs are clear throughout. Nonlabored respirations. Extremities without edema. Laboratory Hemoglobin 13.1, WBC 7.56. Platelet count 228. Sodium 138, potassium 3.8, BUN 26, creatinine 1.5 Imaging No new imaging to report. 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 Impression and Plan Non-STEMI Ischemic cardiomyopathy GERD History of coronary disease status post CABG Peripheral arterial disease Renal artery stenosis Plan reviewed with cardiology. Discharged today. Outpatient catheterization at [facility] in [place]. Patient was given very specific instructions with regards to logistics including travel, hotel accommodations the night prior, and records he should take with him. He will hold his apixaban on the evening before the catheterization.
--- NOTE | 2020-07-19 15:57 | Cardiology Progress Note ---
Date of Service July 19, 2020 Assessment & Plan (1) Atypical chest pain: Nearly resolved. (2) Ischemic cardiomyopathy: He was recently discovered to have reduced LV systolic function. Echocardiogram performed yesterday confirmed mildly reduced LV systolic function with regional wall motion abnormalities consistent with his known coronary disease. This point he will continue on his losartan. Low-dose carvedilol was also added in the setting of his NSTEMI. He has some resting bradycardia but does not appear to have significant side effects related to carvedilol. No evidence of decompensated heart failure. (3) CAD (coronary artery disease): Severe. Status post surgical revascularization quite remotely. 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 Vein graft to the right coronary was stented in 2004. [place] to LAD at that time was patent. Continue outpatient medical management with aspirin, apixaban and atorvastatin. In the setting of his NSTEMI carvedilol and Plavix were added. (4) Atrial fibrillation: Permanent. Generally good rate control. Carvedilol was added this admission due to his NSTEMI. He appears to be tolerating low-dose carvedilol well. We will resume his reduced dose apixaban. (5) Peripheral arterial disease: Prior abdominal aortic aneurysm repair and left renal artery bypass in 2007. (6) Elevated troponin: He had an NSTEMI. He was advised consider coronary angiography. His initial concern involve the potential for contrast nephropathy. However, his degree of renal dysfunction is fairly mild. He did receive contrast at the time of admission for his CT PE protocol. He did not have a decline in renal functio n. He has elected to undergo coronary angiography, but prefers to have this performed at the [facility] in [place]. I spoke with 1 of the cardiologists at that center who has made arrangements for an initial evaluation next ThursdayJuly 24 with a planned angiogram on July 25. He needs to take the [employer] shuttle on Thursday to the [facility]. he could also take a private vehicle. He will check in at the [facility] for evaluation and be put up in a hotel overnight at their expense. Alternatively, he could stay locally with his relatives who live close by. He should bring discharge records from our facility, a record of his echocardiogram and laboratory records with him. I would recommend he not take his dose of apixaban on Thursday morning. He can receive further instructions with respect to anticoagulation once he arrives at the [facility]. I would recommend he be discharged on 81 mg of aspirin, Plavix 75 mg daily and apixaban 2.5 mg twice daily I would also continue carvedilol 3.125 mg twice daily. Admission and Anticipated Discharge Date Admission Date: July 17, 2020 Subjective This afternoon the patient claims to be feeling well. He reported being ambulatory around the [place] which was confirmed by speaking with the nursing staff. He did not have any recurrence of his presenting symptom or his chest discomfort experienced on the night of admission. He denied breathing difficulty or dizziness. The right arm and axillary pain which prompted his hospital admission appears to have resolved. Review of Systems Review of Systems: Per HPI Physical Exam Physical Exam: The patient is alert and oriented. Mood and affect appeared normal. He answered all questions appropriately. HEENT: Pupils are equal and reactive to light and accommodation. Extraocular movements are intact. The sclerae are anicteric. Neuro: Cranial nerves intact Extremities: There was no evidence of hypoperfusion. There is no cyanosis or clubbing. There is no edema. Skin: I did not appreciate any rashes on examination today. Results & Data ([facility]) Vital Signs (Past 12 Hours) Vital Signs Temp Pulse Resp BP Pulse Ox 07/19/20 15:13 36.6 C 56 L 16 121/58 L 95 07/19/20 11:24 36.5 C 51 L 18 136/67 96 07/19/20 07:41 36.9 C 51 L 16 129/65 97 Laboratory Results Abnormal Lab Results 07/19/20 07/19/20 07/19/20 06:39 06:39 06:39 WBC 7.56 RBC 4.49 L Hgb 13.1 L Hct 37.5 L MCV 83.5 MCH 29.2 MCHC 34.9 RDW Std Deviation 43.8 RDW Coeff of Ari 14.3 Plt Count 228 MPV 11.1 H Immature Gran % (Auto) 0.3 Neut % (Auto) 67.7 Lymph % (Auto) 17.5 [place] % (Auto) 10.8 Eos % (Auto) 3.4 Baso % (Auto) 0.3 Neut # (Auto) 5.12 Lymph # (Auto) 1.32 [place] # (Auto) 0.82 H Eos # (Auto) 0.26 Baso # (Auto) 0.02 Immature Gran # (Auto) 0.02 APTT 57.9 H* PTT Ratio 2.2 Sodium 138 Potassium 3.8 Chloride 108 H Carbon Dioxide 24 Anion Gap 6.0 BUN 26 H Creatinine 1.50 H Est Cr Clr Drug Dosing 40.4 Est GFR ( Amer) 49.2 Est GFR (Non-Af Amer) 42.4 BUN/Creatinine Ratio 17.5 Glucose 109 H Calcium 9.0 Magnesium 1.6 L PG Care Time/CCT Total # of Minutes Spent Total Time Spent with Patient: Total time spent is greater than 50% in coordination of care (as documented) at patient's floor/unit and/or counseling patient: Coding Level of Care Code 86654 Subseq Hosp Care Lvl 3 Diagnoses Atypical chest pain R07.89 Ischemic cardiomyopathy I25.5 CAD (coronary artery disease) I25.709 Coronary Disease-Associated Artery/Lesion type: bypass graft [place] vs. transplanted heart: [place] heart Associated angina: with unspecified angina Atrial fibrillation I48.21 Atrial fibrillation type: permanent Peripheral arterial disease I73.9 Elevated troponin R77.8 (1) CAD (coronary artery disease) Coronary Disease-Associated Artery/Lesion type: bypass graft [place] vs. tr ansplanted heart: [place] heart Associated angina: with unspecified angina Qualified Code(s): I25.709 - Atherosclerosis of coronary artery bypass graft(s), unspecified, with unspecified angina pectoris (2) Atrial fibrillation Atrial fibrillation type: permanent Qualified Code(s): I48.21 - Permanent atrial fibrillation
[2020-07-19] MEDS ORDERED: APIXABAN 2.5 MG TAB PO ONE (16:00)
== END 2020-07-19 17:45 | disposition home or self-care (01) | DRG 281 ==
LOC: ED 08:55 → 2S 08:55 → SUATTDRO 14:11 → 2S 16:07